=== PATIENT | female | born 1945 | race Caucasian/White ===

== ENCOUNTER 2023-04-25 10:00 | Outpatient (CLI) | payer MEDICARE, BC, SELFPAY | END 2023-04-25 10:01 | disposition home or self-care (01) | LOC: NFLDREF 04-29 13:08 | PROVIDERS: PCP Internal Medicine; Referring Provider Internal Medicine; Visit Provider Internal Medicine | DX: E78.5 Hyperlipidemia, unspecified (principal); R53.82 Chronic fatigue, unspecified; E03.9 Hypothyroidism, unspecified | CPT/HCPCS: 80053; 80061; 84443 ==

== ENCOUNTER 2023-08-06 15:22 | Emergency (ER) | payer MEDICARE, BC, SELFPAY ==
[2023-08-06 15:59] VITALS: BP 153/79; PULSE 93; RESP 18; TEMP 36.7; O2SAT 97; BMI 25.7
--- NOTE | 2023-08-06 17:30 | CRLHL7_ITS ---
For Patients: As a result of the Century Cures Act, medical imaging exams and procedure reports are released immediately into your electronic medical record. You may view this report before your referring provider. If you have questions, please contact your health care provider. INDICATION: Left leg pain and swelling. TECHNIQUE: Ultrasound venous duplex left lower extremity. Compression venous exam was performed using crawford-scale, color Doppler, and spectral Doppler analysis. COMPARISON: None. FINDINGS: RIGHT LOWER EXTREMITY: The right common femoral vein was imaged for comparison and demonstrate full compressibility and normal flow on color Doppler imaging. LEFT LOWER EXTREMITY: Common Femoral Vein: Fully compressible and demonstrates normal flow on color doppler imaging. Proximal Superficial Femoral Vein: Fully compressible and demonstrates normal flow on color doppler imaging. Mid Superficial Femoral Vein: Fully compressible and demonstrates normal flow on color doppler imaging. Distal Superficial Femoral Vein: Fully compressible and demonstrates normal flow on color doppler imaging. Popliteal vein: Fully compressible and demonstrates normal flow on color doppler imaging. Lower Calf: The posterior tibial and peroneal veins are fully compressible and demonstrate normal flow on color doppler imaging. Superficial Vein: The greater saphenous vein is fully compressible. Popliteal Fossa: No popliteal cyst. Other: In the region of the patient`s concern, there appears to be non compressibility and intraluminal filling defect within a superficial vein common likely representing superficial thrombophlebitis for IMPRESSION: 1. No left lower extremity deep vein thrombus. 2. Likely superficial thrombophlebitis of a superficial vein in the superficial soft tissues overlying the left lateral knee. Dictated by Gus Tineo MD @ 08/06/2023 8:25:13 PM (Electronically Signed)
--- NOTE | 2023-08-06 19:09 | ED.GENADULT ---
HPI - General Adult General Date Seen: 08/06/23 Chief complaint: Extremity Pain/Injury, Lower Stated complaint: nodule on leg Time Seen by Provider: 08/06/23 17:26 Source: patient Mode of arrival: ambulatory Limitations: no limitations History of Present Illness HPI narrative: Patient is a 77-year-old female presenting emergency department after noticing a small nodule on the lateral portion of her left lower extremity. It is about knee level denies fevers, chest pain, shortness of breath, weakness, numbness, headache, vision changes. She states she called the triage line was told to come here to check for DVT. She denies any pain to it at this time. No other concerns noted. Related Data Home Medications Medication Instructions Recorded Confirmed azelastine 137 mcg (0.1 %) nasal 2 intranasal DAILY 03/06/22 04/29/23 spray aerosol calcium carbonate 600 mg-vitamin cap PO 03/06/22 04/29/23 D3 12.5 mcg (500 unit) capsule (Calcium 600 with Vitamin D3) famotidine 20 mg tablet 20 mg PO BID 03/06/22 04/29/23 melatonin 3 mg capsule 1 mg PO .Bedtime as needed PRN 03/06/22 04/29/23 multivitamin 1 tab PO QAM 03/06/22 04/29/23 omega 3-new-kln-fish oil 1,000 mg 1 cap PO QDAY 03/06/22 04/29/23 (120 mg-180 mg) capsule (Fish Oil) timolol maleate 0.5 % eye drops drp ophthalmic (eye) 02/21/23 04/29/23 tretinoin 0.05 % topical cream 1 applic topical QPM 02/21/23 08/06/23 Creon 08/06/23 Previous Rx's Medication Instructions Recorded alprazolam 0.25 mg tablet 0.25 mg PO .Bedtime as needed PRN 04/29/23 sleep #30 tabs ibandronate 150 mg tablet 150 mg PO .Every 30 Days #3 tabs 04/29/23 levothyroxine 75 mcg tablet 75 mcg PO DAILY #90 tabs 04/29/23 simvastatin 20 mg tablet 20 mg PO .Bedtime #90 tabs 04/29/23 trazodone 50 mg tablet 50 mg PO .Bedtime #90 tabs 04/29/23 Allergies Allergy/AdvReac Type Severity Reaction Status Date / Time levofloxacin AdvReac Intermediate Tendon Verified 04/29/23 12:43 painful Review of Systems Status of ROS: Reports: 10 or more systems reviewed and unremarkable except as noted in History and below [facility] Medical History History of depression ?Z86.59 - Personal history of other mental and behavioral disorders (ICD-10) Surgical History History of malignant neoplasm of skin ?Z85.828 - Personal history of other malignant neoplasm of skin (ICD-10) History of nasal polypectomy ?Z98.890 - Other specified postprocedural states (ICD-10) ?Z87.09 - Personal history of other diseases of the respiratory system (ICD-10) History of bunionectomy of right great toe ?Z98.890 - Other specified postprocedural states (ICD-10) History of appendectomy ?Z90.49 - Acquired absence of other specified parts of digestive tract (ICD-10) History of repair of hiatal hernia ?Z98.890 - Other specified postprocedural states (ICD-10) ?Z87.19 - Personal history of other diseases of the digestive system (ICD-10) History of breast surgery ?Z98.890 - Other specified postprocedural states (ICD-10) History of total hysterectomy with bilateral salpingo-oophorectomy (BSO) ?Z90.710 - Acquired absence of both cervix and uterus (ICD-10) ?Z90.722 - Acquired absence of ovaries, bilateral (ICD-10) ?Z90.79 - Acquired absence of other genital organ(s) (ICD-10) History of cholecystectomy ?Z90.49 - Acquired absence of other specified parts of digestive tract (ICD-10) History of cataract extraction ?Z98.49 - Cataract extraction status, unspecified eye (ICD-10) Social History Smoking Status: Never smoker Non-prescribed substance use: denies use Little interest or pleasure in doing things: not at all Feeling down, depressed, or hopeless: several days Exam Narrative: Exam Narrative: Const: Well-nourished, Well-developed, in no distress Eyes: PERRL, no conjunctival injection, and symmetrical lids HENT: Atraumatic external nose and ears. Moist mucous membranes. Neck: Symmetric, trachea midline, No thyromegaly. CVS: RRR, No murmurs or gallops. Peripheral pulses 2+ and equal in all extremities RESP: Unlabored respiratory effort. Clear to auscultation bilaterally. GI: Nontender/Nondistended, No rebound or guarding. MSK:Extremities w/o deformity, Normal Active ROM, roughly 1 cm in size mobile nodule noted on the left leg Skin: Warm, Dry. No rashes or lesions. Neuro: Normal Muscle tone, No focal neurological deficits. Psych: Awake, Alert, & Oriented x3. Appropriate mood and affect. Const: Vital Signs, click to edit/add: Vital Signs - 24 hr 08/06/23 15:59 08/06/23 19:24 08/06/23 19:26 Temperature 98.1 F 98.6 F 98.6 F Pulse Rate [Pulse Oximeter] 93 89 89 Respiratory Rate 18 18 18 Blood Pressure [Ri ght Upper Arm] 153/79 H 143/74 H 143/74 H Pulse Oximetry 97 97 Oxygen Delivery Me thod Room Air Room Air Course Vital Signs Vital signs: Initial Vital Signs Temperature 98.1 F 08/06/23 15:59 Temperature Source Temporal Artery Scan 08/06/23 15:59 Pulse Rate 93 08/06/23 15:59 Respiratory Rate 18 08/06/23 15:59 Blood Pressure 153/79 H 08/06/23 15:59 Blood Pressure Mean 103 08/06/23 15:59 Blood Pressure Position Sitting 08/06/23 15:59 Pulse Oximetry 97 08/06/23 15:59 Oxygen Delivery Method Room Air 08/06/23 15:59 Vital Signs Temperature 98.1 F 08/06/23 15:59 Pulse Rate 93 08/06/23 15:59 Respiratory Rate 18 08/06/23 15:59 Blood Pressure 153/79 H 08/06/23 15:59 Pulse Oximetry 97 08/06/23 15:59 Oxygen Delivery Method Room Air 08/06/23 15:59 Temperature 98.6 F 08/06/23 19:26 Pulse Rate 89 08/06/23 19:26 Respiratory Rate 18 08/06/23 19:26 Blood Pressure 143/74 H 08/06/23 19:26 Pulse Oximetry 97 08/06/23 19:24 Oxygen Delivery Method Room Air 08/06/23 19:24 Medical Decision Making MDM Narrative Medical decision making narrative: Patient is a 77-year-old female presenting for concern of blood clot. There is an area on her left leg that is mobile and mildly tender to palpation. This seems unlikely to be a DVT but we will get an ultrasound of the area to see what is found. The preliminary read shows superficial thrombophlebitis. Is about 1 cm in length and is far away from the saphenofemoral junction. Due to this treatment with blood thinners is not needed. She will be discharged home and told to take NSAIDs for pain control and for hot packs on the area. She is agreeable to this plan. Imaging Data Ultrasound left lower extremity: Radiologist's impression: 1. No left lower extremity deep vein thrombus. 2. Likely superficial thrombophlebitis of a superficial vein in the superficial soft tissues overlying the left lateral knee. Dictated by Gus Tineo MD @ 08/06/2023 8:25:13 PM Discharge Plan Discharge Clinical Impression: Superficial thrombophlebitis Qualifiers: Superficial thrombophlebitis-Involved body area: lower extremity Laterality: left Qualified Code(s): I80.02 - Phlebitis and thrombophlebitis of superficial vessels of left lower extremity Patient Disposition: Home, Self-Care Condition: Stable Instructions: Superficial Thrombophlebitis (ED) Additional Instructions: Take NSAIDs and use hot packs to the area to help break up the superficial clot if it is causing you any problems. This specific type of blood clot does not require treatment. Prescriptions: No Action melatonin 3 mg capsule 1 mg PO .Bedtime as needed PRN azelastine 137 mcg (0.1 %) aerosol,spray 2 intranasal DAILY multivitamin Tablet 1 tab PO QAM omega 3-gyt-lud-fish oil [Fish Oil] 1,000 mg (120 mg-180 mg) capsule 1 cap PO QDAY calcium carbonate-vitamin D3 [Calcium 600 with Vitamin D3] 600 mg-12.5 mcg (500 unit) capsule PO famotidine 20 mg tablet 20 mg PO BID tretinoin 0.05 % cream 1 applic topical QPM timolol maleate 0.5 % drops ophthalmic (eye) simvastatin 20 mg tablet 20 mg PO .Bedtime Qty: 90 3RF levothyroxine 75 mcg tablet 75 mcg PO DAILY Qty: 90 3RF trazodone 50 mg tablet 50 mg PO .Bedtime Qty: 90 3RF alprazolam 0.25 mg tablet 0.25 mg PO .Bedtime as needed PRN (Reason: sleep) Qty: 30 0RF ibandronate 150 mg tablet 150 mg PO .Every 30 Days Qty: 3 3RF Creon Follow Up/Referrals: Heather Geronimo MD [Primary Care Provider] - Stand Alone Forms: [facility] Info Instructions
[2023-08-06 19:24] VITALS: BP 143/74; PULSE 89; RESP 18; TEMP 37; O2SAT 97
[2023-08-06 19:26] VITALS: BP 143/74; PULSE 89; RESP 18; TEMP 37
== END 2023-08-06 19:27 | disposition home or self-care (01) ==
LOC: ED 19:23
PROVIDERS: Emergency Provider Student in an Organized Health Care Education/Training Program; PCP Internal Medicine
DX: I80.02 Phlebitis and thrombophlebitis of superficial vessels of left lower extremity (principal)
CPT/HCPCS: 93971; 99282; 99283; 99284

== ENCOUNTER 2023-08-09 11:41 | Outpatient (REF) | payer MEDICARE, BC, SELFPAY ==
[2023-08-09 12:26] LABS: Vitamin D 25 Hydroxy* 61 ng/mL (30-80)
[2023-08-09 13:23] LABS: Vitamin B12* 932 pg/mL (243-894)
[2023-08-10 21:08] LABS: Folate, Serum >22.3 ng/mL (>=5.9)
[2023-08-12 08:44] LABS: Vitamin A (Retinol) 0.77 mg/L (0.30-1.20)
== END 2023-08-09 11:42 | disposition home or self-care (01) ==
LOC: NPINS 11:41
PROVIDERS: PCP Internal Medicine
DX: K86.89 Other specified diseases of pancreas (principal); Z13.0 Encounter for screening for diseases of the blood and blood-forming organs and certain disorders involving the immune mechanism; F51.04 Psychophysiologic insomnia; M81.0 Age-related osteoporosis without current pathological fracture; E03.9 Hypothyroidism, unspecified; E78.5 Hyperlipidemia, unspecified; Z13.21 Encounter for screening for nutritional disorder
CPT/HCPCS: 82306; 82607; 82728; 82746; 84446; 84590

== ENCOUNTER 2024-03-11 06:50 | Outpatient (CLI) | payer MEDICARE, BC, SELFPAY | END 2024-03-11 06:51 | disposition home or self-care (01) | LOC: NFLDREF 06:51 | PROVIDERS: PCP Internal Medicine; Visit Provider Family Medicine | DX: N39.0 Urinary tract infection, site not specified (principal); B96.5 Pseudomonas (aeruginosa) (mallei) (pseudomallei) as the cause of diseases classified elsewhere; B96.89 Other specified bacterial agents as the cause of diseases classified elsewhere | CPT/HCPCS: 87086; 87186 ==

== ENCOUNTER 2024-03-22 10:59 | Outpatient (RCR) | payer MEDICARE, BC, SELFPAY ==
[2024-03-21 11:45] VITALS: BP 140/88; PULSE 80; RESP 18; TEMP 36.2; O2SAT 95
[2024-03-21] MEDS: ERTAPENEM 1 GM inj IM (11:56)
[2024-03-21] MEDS: LIDOCAINE 1% 5 ml (pf) 5 ML VIAL 3.2 ML IM (11:58)
[2024-03-22] MEDS: LIDOCAINE 1% 5 ml (pf) 5 ML VIAL 3.2 ML IM (11:18)
[2024-03-22] MEDS: ERTAPENEM 1 GM inj IM (11:18)
[2024-03-22 11:20] VITALS: BP 123/71; PULSE 70; RESP 12; TEMP 36.3; O2SAT 97
== END 2024-12-02 13:41 | disposition home or self-care (01) ==
PROVIDERS: PCP Internal Medicine; Visit Provider Family Medicine
DX: N39.0 Urinary tract infection, site not specified (principal); B96.5 Pseudomonas (aeruginosa) (mallei) (pseudomallei) as the cause of diseases classified elsewhere; B96.89 Other specified bacterial agents as the cause of diseases classified elsewhere; N39.41 Urge incontinence; N95.2 Postmenopausal atrophic vaginitis
CPT/HCPCS: 80307; 90471; 96372; J1335

== ENCOUNTER 2024-05-14 09:55 | Outpatient (CLI) | payer MEDICARE, BC, SELFPAY ==
--- OUTSIDE RECORDS SUMMARY | 2024-05-14 13:55 | XMS_ITS | Encounter Summary ---
Author Organization [facility] Address [address] [place] [id number] Care Team Providers Care Solutions Operator Name Role Phone Unavailable Primary Care Provider Unavailabl e Reason for Visit * Reason Comments Med Change Request Encounter Details Date Type Department Care Team (Late st Contact Info) Description 04/29/2024 Refill Division of Gastroenterology in [place], [place] [address] [place] [phone] Yvette Moncada M.D., M.P.H. [address] [place] [phone] Med Change Request Social History Tobacco Use Types Packs/Day Years Used Date Smoking Tobacco: Never Smokeless Tobacco: Never Alcohol Use Standard Drinks/Week Comments Yes 0 (1 standard drink = 0.6 oz pur e alcohol) Rarely have a drink. [facility] Utilities Answer Date Recorded In the past 12 months has e [employer], gas, oil, or water [employer] threatened to shut off services in your home? No 04/05/2024 Social Connection and Isolat ion Panel [NHANES] Answer Date Recorded Frequency of Communication w ith Friends and Family More than three times a week 04/19/2019 Frequency of Social Gatherin gs with Friends and Family Three times a week 04/19/2019 Attends Taoist Services More than 4 times per year 04/19/2019 Active Member of Clubs or Organizations Yes 04/19/2019 Attends Club or Organization Meetings More than 4 times per year 04/19/2019 Marital Status 04/19/2019 AUDIT-C Answer Date Recorded Frequency of Alcohol Consumption Monthly or less 04/19/2019 Average Number of Drinks 1 or 2 019 Frequency of Binge Drinking Never 04/05 Overall Financial Resource Strain (CARDIA) Answe r Date Recorded Difficulty of Paying Living Expenses Not hard at all 04/19/2019 PHQ-2 Answer Date Recorded PHQ-2 Score 2 01/11/2019 [facility] - Occupational Stress Questionnaire Answer Date Recorded Feeling of Stress To some extent 04/19/2019 Exercise Vital Sign Answer Date Recorde d On average, how many days pe r week do you engage in moderate to strenuous exercise (like a brisk walk)? 6 days 04/05/2024 On average, how many minutes do you engage in exercise at this level? 30 min 04/05/2024 Hunger Vital Sign Answer Date Recorded Within the past 12 months, y ou worried that your food would run out before you got the money to buy more. Never true 04/05/20 24 Within the past 12 months, t he food you bought just didn't last and you didn't have money to get more. Never true 04/05/2024 PRAPARE - Transportation Answer Date Re corded In the past 12 months, has l ack of transportation kept you from medical appointments or from getting medications? No 08/2023 In the past 12 months, has l ack of transportation kept you from meetings, work, or from getting things needed for daily living? No 04/05/2024 Nutrition Answer Date Recorded On average, how many serving s of fruits and vegetables do you eat per day (serving size is equal to 1 cup or approximately the size of a tennis ball)? 0-2 04/05/2024 Dental Answer Date Recorded Dental: Regular Dentist Yes 04/05/20 24 Employment Answer Date Recorded Employment status Retired 04/05/2024 Housing Stability Answer Date Recorded What is your living situation today? I have a [facility] place to live 04/05/2024 Education Answer Date Recorded What is the highest level of school you have completed or the highest degree you have received? Master's degree (e.g., MA, MS, Good, MEd, TOP AND TRIM WORKER, REBECCA) 04/19/2019 Sex and Gender Information Value Date Recorded Sex Assigned at Female 05/17/2018 6:44 PM CDT Gender Identity Not on file Sexual Orientation Not on file documented as of this encounter Plan of Treatment Not on file documented as of this encounter Visit Diagnoses Not on filedocumented in this encounter
--- OUTSIDE RECORDS SUMMARY | 2024-05-14 13:55 | XMS_ITS | Encounter Summary ---
Author Organization [facility] Address [address] [place] [address] Care Team Providers Care Journeyman Tool And Die Maker Name Role Phone Unavailable Primary Care Provider Unavailabl e Reason for Visit * Reason Comments Gastroparesis * Outpatient (Routine) - Closed Specialty Diagnoses / Procedures Referred By Pineda stoner Referred To Contact Diagnoses Gastroparesis Diarrhea Anemia Iron Deficiency Constipation Procedures Enema Prep Yvette Moncada M.D., M.P.H. [address] [place] [phone] [facility] Referral ID Status Reason Start Date Expiration Date Visits Re quested Visits Authorized [id number] Closed 04/07/2024 04/07/2025 1 1 Encounter Details Date Type Department Care Team (Latest Contact Info) Description 04/16/2024 8:00 AM CDT Clinical Support Enema Prep Facility in [place], [place] [address] [place] [phone] Yvette Moncada M.D., M.P.H. [address] [place] [phone] Lisa Montes R.NJason Gastroparesis; Diarrhea; Anemia Iron Deficiency; Constipation Social History Tobacco Use Types Packs/Day Years Used Date Smoking Tobacco: Never Smokeless Tobacco: Never Alcohol Use Standard Drinks/Week Comments Yes 0 (1 standard drink = 0.6 oz pur e alcohol) Rarely have a drink. [facility] Utilities Answer Date Recorded In the past 12 months has th e electric, gas, oil, or water company threatened to shut off services in your home? No 04/05/2024 Social Connection and Isolat ion Panel [NHANES] Answer Date Recorded Frequency of Communication w ith Friends and Family More than three times a week 04/19/2019 Frequency of Social Gatherin gs with Friends and Family Three times a week 04/19/2019 Attends Tenriism Services More than 4 times per year [...] Answer Date Recorded PHQ-2 Score 2 [facility] Answer Date [...] Date Recorded Dental: Regular Dentist Yes 04/05/20 Employment Answer Date Recorded Employment status Retired 04/05/2024 Housing Stability Answer Date Recorded What is your living situation today? I have a [facility] place to live 04/05/2024 Education Answer Date Recorded What is the highest level of school you have completed or the highest degree you have received? Master's degree (e.g., MA, MS, Good, MEd, INSECT CONTROL AIDE, REBECCA) 04/19/2019 Sex and Gender Information Value Date Recorded Sex Assigned at Female 05/17/2018 6:44 PM CDT Gender Identity Not on file Sexual Orientation Not on file documented as of this encounter Plan of Treatment Not on file documented as of this encounter Visit Diagnoses Diagnosis Gastroparesis Diarrhea Anemia Iron Deficiency Constipation documented in this encounter
--- OUTSIDE RECORDS SUMMARY | 2024-05-14 13:55 | XMS_ITS | Clinical Summary ---
Author Organization [facility] Address [address] [place] [address] Care Team Providers Care Frame Hand Name Role Phone Unavailable Primary Care Provider Unavailabl e Source Comments Patient records contain information from all sites at [facility]. For routine questions regarding patient records, call [phone] during business hours, M-F 8:00 AM - 5:00 PM Central Time. Record requests for emergency care only can be directed to [phone] at any time.[facility] Allergies Active Allergy Reactions Criticality Noted Date Comments Ciprofloxacin Tendonitis High 07/02/2018 Levofloxacin Anxiety,Other (see comments),Tendonitis High 08/08/2014 Could not sleep & tendonitis of arms. Moxifloxacin Tendonitis High 07/02/2018 Medications Medication Sig Dispensed Refills Start Date End Date Status azelastine HCl (AZELASTINE NASAL) Administer 2 sprays into affected nostril(s) daily. Azelastine spray. 05/01/2012 Active OMEGA-3 FATTY ACIDS ORAL Take 1 capsule by mouth 2 (two) times a day. 2000 mg. 05/01/2012 Active melatonin 1 mg tablet Take 1 mg by mouth at bedtime. Active MULTIVITAMIN ORAL Take 1 tablet by mouth daily. Active levothyroxine (SYNTHROID, LEVOTHROID) 75 mcg tablet Take 75 mcg by mouth every morning before breakfast. Active famotidine (PEPCID) 40 mg tablet Take 40 mg by mouth 2 (two) times a day. Active ALPRAZolam (Xanax) 0.25 mg tablet Take 1 tablet by mouth at bedtime as needed. 01/28/2018 Active tretinoin (Retin-A) 0.05 % cream See Admin Instructions. See attached for detailed directions. 03/26/2024 Active iron,carbonyl-v itamin C (Vitron-C) 65 mg iron- [address] tablet Take 65 mg of iron by mouth daily. Do not crush or chew. Active magnesium 250 mg tablet Take 1 tablet by mouth 2 (two) times a day. Active traZODone (DesyreL) 50 mg tablet Take 50 mg by mouth. 04/29/2023 Active timolol (Istalol) 0.5 % ophthalmic solution Administer into affected eye(s). 02/21/2023 Active simvastatin (Zocor) 20 mg tablet Take 20 mg by mouth. 04/29/2023 Active ibandronate (Boniva) 150 mg tablet Take 150 mg by mouth. 04/29/2023 Active calcium carbonate-vitam in D3 600 mg-12.5 mcg (500 unit) capsule Take by mouth. 03/06/2022 Active lipase-protease -amylase (Creon) 3,000-9,500-15, [address] capsule Take by mouth. 01/24/2024 Active Motegrity 1 mg tablet tablet TAKE 1 TABLET BY MOUTH EVERY DAY 30 tablet 11 04/30/2024 Active calcium carbonate 1,500 mg (600 mg calcium) tablet Take 1 tablet by mouth daily. 05/01/2012 4 Discontinued(The rapy completed) magnesium 250 mg tablet Take 2 tablets by mouth daily. 05/01/2012 4 Discontinued(Dup licate order) simvastatin (ZOCOR) 20 mg tablet Take 1 tablet by mouth daily. 05/01/2012 4 Discontinued(The rapy completed) traZODone (DESYREL) 50 mg tablet Take 50 mg by mouth at bedtime. 0.5 tabletSide effects of 5-FU (Fluorouracil): [employer]romedex CareNotes Fever, chills, or sore throat Unusual bleeding or bruising Diarrhea, loose watery stools Mouth sores that keep you from drinking li 03/14/2016 4 Discontinued(Dup licate order) timolol (TIMOPTIC) 0.5 % ophthalmic solution 1 drop 2 (two) times a day. 4 Discontinued(Dup licate order) omeprazole (PriLOSEC) [address] capsule Take 10 mg by mouth every morning before breakfast. 4 Discontinued ibandronate (Boniva) 150 mg tablet Take 150 mg by mouth every 30 (thirty) days. 4 Discontinued(The rapy completed) lipase-protease -amylase (Creon) 24,000-76,000-1 20,[address] capsule Take 1 capsule by mouth 3 (three) times a day with meals. 4 Discontinued(Dup licate order) tretinoin-clind amycin-niacin 0.05-1-4 % cream Apply topically. 02/21/2023 4 Discontinued(Dup licate order) omega 4-hse-mum-fish oil 1,000 mg (120 mg-180 mg) capsule Take 1 capsule by mouth. 03/06/2022 4 Discontinued(Dup licate order) melatonin 3 mg capsule Take 1 mg by mouth. 03/06/2022 4 Discontinued(Dup licate order) multivitamin tablet Take 1 tablet by mouth. 03/06/2022 4 Discontinued(The rapy completed) levothyroxine 75 mcg tablet Take 75 mcg by mouth. 04/29/2023 4 Discontinued(Dup licate order) famotidine (Pepcid) 20 mg tablet Take 20 mg by mouth. 03/06/2022 4 Discontinued(The rapy completed) prucalopride (Motegrity) 1 mg tablet tablet Take 1 tablet (1 mg total) by mouth daily. 30 tablet 11 04/29/2024 4 Discontinued Active Problems Problem Noted Date Diagnosed Date Hernia Hiatal 05/21/2018 Overview (05/21/2018): Added automatically from request for surgery [id number] Dysthymic disorder 01/28/2018 Hypercholesterolemia 01/28/2018 Irritable Bowel Syndrome With Constipation 01/28 Osteopenia 01/28/2018 Urinary Tract Infection (UTI)/Bacteriuria NOS Overview (09/03/2022): Diagnosis Maintenance Updates Chronic interstitial cystitis 12/17/2017 Overactive Bladder 12/17/2017 Gastroesophageal Reflux Disease Without Esophagi tis 08/24/2015 Insomnia 08/02/2015 Hypothyroidism On Replacement 05/01/2012 Dry Eye Syndrome Bilateral 11/30/2004 Primary Osteoarthritis Cervical Spine 11/29/2004 Resolved Problems Problem Noted Date Diagnosed Date Resolved Date Central Sleep Apnea Syndrome 05/01/2012 04/16/2018 Hole Retinal Without Detachment Right 11/30/2004 04/17/2018 Encounters Date Type Department Care Team Description 04/30/2024 Orders Only Division of Gastroenterology in [place], [place] [address] [place] [phone] Yvette Moncada M.D., M.P.H. 04/29/2024 4:00 PM CDT Virtual Visit Division of Gastroenterology in [address] [phone] Yvette Moncada M.D., M.P.H. Constipation (Primary Dx); Dysfunction Pelvic Floor Female 04/29/2024 Refill Division of Gastroenterology in [place], [place] [address] [place] [phone] Yvette Moncada M.D., M.P.H. Med Change Request 04/16/2024 8:50 AM CDT - 04/16/2024 11:59 PM CDT Hospital Encounter Division of Gastroenterology in [address] [phone] Yvette Moncada M.D., M.P.H. Gastroparesis; Diarrhea; Anemia Iron Deficiency; Constipation Discharge Disposition: Home or Self Care 04/16/2024 8:00 AM CDT Clinical Support [facility] in [place], [place] [address] [place] [phone] Yvette Moncada M.D., M.P.H. Lisa Montes R.N. Gastroparesis; Diarrhea; Anemia Iron Deficiency; Constipation 04/10/2024 7:44 AM CDT - 04/10/2024 11:59 PM CDT Hospital Encounter Department of Radiology, [facility], in [place], [place] [address] [place] [phone] Kirk Senior M.D. Discharge Disposition: Home or Self Care 04/09/2024 6:25 AM CDT - 04/09/2024 11:59 PM CDT Hospital Encounter Department of Radiology, [facility] in [place], [place] [address] [place] [phone] Kirk Senior M.D. Discharge Disposition: Home or Self Care 04/08/2024 2:15 PM CDT - 04/08/2024 11:59 PM CDT Hospital Encounter Department of Radiology, [facility], in [place], [place] [address] [place] [phone] Kirk Senior M.D. Discharge Disposition: Home or Self Care 04/08/2024 10:12 AM CDT - 04/08/2024 2:14 PM CDT Hospital Encounter Department of Radiology, [facility], in [place], [place] [address] [place] [phone] Kirk Senior M.D. Discharge Disposition: Home or Self Care 04/08/2024 9:13 AM CDT - 04/08/2024 10:11 AM CDT Hospital Encounter Department of Radiology, [facility] in [place], [place] [address] [place] [phone] Kirk Senior M.D. Discharge Disposition: Home or Self Care 04/08/2024 8:10 AM CDT - 04/08/2024 9:12 AM CDT Hospital Encounter Department of Radiology, [facility], [place], [place] [address] [place] [phone] Kirk Senior M.D. Discharge Disposition: Home or Self Care 04/08/2024 6:55 AM CDT - 04/08/2024 8:09 AM CDT Hospital Encounter Department of Radiology, [facility], in [place], [place] [address] [place] [phone] Kirk Senior M.D. Gastroparesis Discharge Disposition: Home or Self Care 04/07/2024 12:30 PM CDT - 04/07/2024 11:59 PM CDT Hospital Encounter Department of Radiology, [facility], in [address] [phone] Yvette Moncada M.D., M.P.H. Gastroparesis; Diarrhea; Anemia Iron Deficiency; Constipation Discharge Disposition: Home or Self Care 04/07/2024 9:20 AM CDT Comprehensive Visit Division of Gastroenterology in [place], [place] [address] [place] [phone] Yvette Moncada M.D., M.P.H. Gastroparesis (Primary Dx); Diarrhea; Anemia Iron Deficiency; Constipation 03/31/2024 1:00 PM CDT Clinical Communication Virtual Review in [place], [place] [address] [place] [phone] Previsit Preparation (TORSTEN DD) 02/14/2024 Clinical Communication Division of Gastroenterology in [address] [phone] Javier White M.B.B.S. from Last 3 Months Immunizations Name Administration Dates Next Due HZV (ZOSTAVAX) 08/04/2016 Influenza Split 05/23/2011 Influenza TIV (IM) 05/10/2015, 1,05/01/2010,2008 Influenza, Seasonal, Injectable 04/30/2009 Influenza, Unspecified 05/21/2018 PCV13 07/19/2015 PPSV23 02/16/2011 RZV (SHINGRIX) 07/02/2018(Deferred: Not available from home service advisor) Tdap 11/08/2011,09/05/2011 influenza trivalent high dos e (HD)(PF) 05/30/2017,05/28/2016,05/10/2015,2010 influenza trivalent vaccine (6 months and older)(PF) 05/01/2010 Family History Medical History Relation Name Comments Coronary artery disease Brother 1 Jimbo Diabetes Brother 1 Jimbo Hypertension Brother 1 Jimbo Stroke Brother 2 Glynn Hypertension Father Bassem Stroke Father Bassem Diabetes Maternal Grandmother Mis Anxiety disorder Mother Sarah Diabetes Mother Sarah Relation Name Status Comments Brother 1 Jimbo Brother 2 Glynn Father Bassem Maternal Grandmother Mis Smith Social History Tobacco Use Types Packs/Day Years Used Date Smoking Tobacco: Never Smokeless Tobacco: Never Tobacco Cessation:Counseling Given: Not Answered Alcohol Use Standard Drinks/Week Comments Yes 0 (1 standard drink = 0.6 oz pur e alcohol) Rarely have a drink. [facility] Utilities Answer Date Recorded In the past [...] Family Three times a week 04/19/2019 Attends [employer] More than 4 times per year [...] Answer Date Recorded PHQ-2 Score 2 01/11/2019 [facility] - Occupational Stress Questionnaire Answer Date Recorded [...] your living situation today? I have a [facility] place to live 04/05/2024 Education Answer Date Recorded What is the highest level of school you have completed or the highest degree you have received? Master's degree (e.g., MA, MS, Good, MEd, FEED PROJECT ENGINEER, REBECCA) 04/19/2019 Sex and Gender Information Value Date Recorded Sex Assigned at Female 05/17/2018 6:44 PM CDT Gender Identity Not on file Sexual Orientation Not on file Last Filed Vital Signs Vital Sign Reading Time Taken Comments Blood Pressure 160/87 04/07/2024 9:32 AM CDT Pulse 78 04/07/2024 9:32 AM CDT Temperature 36.8 ??C (98.2 ??F) 07/02/2018 1:51 PM CS T Respiratory Rate - - Oxygen Saturation - - Inhaled Oxygen Concentration - - Weight 63.3 kg (139 lb 8.8 oz) 04/07/2024 9:32 A M CDT Height 157 cm (5' 1.81) 04/07/2024 9:32 AM CDT Body Mass Index 25.68 04/07/2024 9:32 AM CDT Plan of Treatment Health Maintenance Due Date Last Done Comments Hepatitis C Screening 1945 Thyroid Stimulating Hormone (TSH) test for thyroid function 02/26/2023 02/26/2022, 02/25/2020, 02/21/2018 Depression Screening (Annual PHQ-2) 08/05/2023 Fall Risk Screen (Annual) 08/05/2023 COVID-19 Vaccine (2023-09 5 season) 2024 05/25/2023, 01/08/2023, 05/22/2022, Additional history exists Influenza Vaccine (#1) 2024 , 06/01/2022, 05/10/2021, Additional history exists DTaP,Tdap,and Td Vaccines (4 - Td or Tdap) 02/27/2032 02/26/2022, 11/08/2011, 09/05/2011 Colonoscopy Discontinued 04/27/2010, 10/03 (Performed elsewhere) Colorectal Cancer Screening Discontinued Pneumococcal vaccine (65+ years) Completed 07/19/20, 02/16/2011 Bone Density Scan (Osteoporo sis Screen) Discontinued 04/17/2017 Zoster Vaccines Completed 12/03/2019, 06/05, 07/02/2018, Additional history exists Mammogram Discontinued 03/07/2022, 10/2021, 04/07/2012 (Performed elsewhere) RSV vaccine - (32-3 6 weeks) or 60+ years Completed 04/29/2023 CT Colonography Discontinued Cologuard Discontinued FIT Discontinued Medical Devices Implanted Type [employer] Device Identifier Shelf Expiration Date Model / Serial / Lot Stent Other Stent Other Eye Description:Both eyes Procedures Procedure Name Priority Date/Time Associated Diagnosis Comments ANORECTAL MANOMETRY Routine 04/17/2024 6 :46 AM CDT Gastroparesis Diarrhea Anemia Iron Deficiency Constipation NM GASTRIC EMPTYING WITH SB WITH COLONIC TRANSIT TIME 48 HR RAD - Routine (most inpatients and all outpatients) 04/10/2024 8:31 AM CDT Gastroparesis PANCREATIC ELASTASE,F Routine 04/08/2024 1:29 PM CDT Gastroparesis Diarrhea Anemia Iron Deficiency Constipation DX ABDOMEN 1 VIEW RAD - Routine (most inpatients and all outpatients) 04/07/2024 1:51 PM CDT Gastroparesis Diarrhea Anemia Iron Deficiency Constipation PROTHROMBIN TIME (PT), P Routine 04/07/2024 11:19 AM CDT Gastroparesis Diarrhea Anemia Iron Deficiency Constipation VITAMIN A AND VITAMIN E, S Routine 04/07/2024 11:19 AM CDT Gastroparesis Diarrhea Anemia Iron Deficiency Constipation FERRITIN, S Routine 04/07/2024 11:19 AM CDT Gastroparesis Diarrhea Anemia Iron Deficiency Constipation IRON AND TOT IRON-BINDING CAPACITY, S/P Routine 04/07/2024 11:19 AM CDT Gastroparesis Diarrhea Anemia Iron Deficiency Constipation 25-HYDROXYVITAMIN D2 AND D3, S Routine 04/07/2024 11:19 AM CDT Gastroparesis Diarrhea Anemia Iron Deficiency Constipation COMPREHENSIVE METABOLIC PANEL, S/P Routine 04/07/2024 11:19 AM CDT Gastroparesis Diarrhea Anemia Iron Deficiency Constipation CBC WITH DIFFERENTIAL, B Routine 04/07/2024 11:18 AM CDT Gastroparesis Diarrhea Anemia Iron Deficiency Constipation from Last 3 Months Results * Anorectal Manometry (04/17/2024 6:46 AM CDT) Yvette Moncada M.D., M.P.H. GI PROCEDURE ORDERABLES MMODAL NA * NM Gastric Emptying with SB with Colonic Transit Time 48 hr (04/10/2024 8:31 AM CDT) Anatomical Region Laterality Modality Abdomen, Pelvis, Nuclear Med icine RST LOS, Nuclear Medicine ARZ LOS, Nuclear Medicine FLA LOS, Nuclear Medicine N/A Nuclear Medicine Impressions 04/10/2024 8:55 AM CDT 1. Normal rate of gastric emptying at 1 hour. Slightly delayed gastric emptying at 2 hour images. No four-hour images available. 2. Colonic transit measures slow at 24 and 48 hours. However, the indium-111 charcoal capsule is retained in the stomach at the 6-hour time point, visualized proximal to the technetium labeled sulfur colloid meal. Therefore, measured colonic transit results could be spurious. Normal change in geometric center of colonic activity from 24 to 48 hours. ?? Narrative 04/10/2024 8:55 AM CDT EXAM: ??NM GASTRIC EMPTYING WITH SB WITH COLONIC TRANSIT TIME 48 HR RADIOPHARMACEUTICAL/MEDS: Route: oral indium In 111 charcoal capsule (In-111 Charcoal Capsule),0.103 millicurie Route: oral technetium Tc 99m Sulfur Colloid solution (Tc-99m Sulfur Colloid) , 1.1 millicurie TECHNIQUE: ??After oral ingestion of the standard radiolabeled meal and a radiolabeled charcoal capsule, sequential anterior and posterior planar images of the abdomen were obtained out to 48 hours for evaluation of gastric emptying, colonic filling, and colon transit. COMPARISON: ??No relevant priors available at this time of interpretation. INDICATION: ??Suspected gastroparesis. FINDINGS: ??Percent emptied from the stomach following a technetium labeled meal was: 1 hour 11% (normal 4 - 31%) 2 hour 21% (normal 25 - 71%) 4 hour NA% (normal 76 - 100%). The patient did not present for the 4 hour image. 6 hour colonic filling 1% (mean 44%) Geometric center of In-111 colonic activity was: 24 hour 0 (normal 1.3 - 4.4) 48 hour 1.7 (normal 1.9 - 5.0) Change in geometric center from 24 to 48 hour: 1.7 (slow colonic transit <0.38) (rapid colonic transit >2.0) Ranges represent 5th to 95th percentile. The patient ate all of the meal. Procedure Note Mannie Whiteside M.B., B.Ch., B.A.O. - 04/10/2024 EXAM: NM GASTRIC EMPTYING WITH SB WITH COLONIC TRANSIT TIME 48 HR RADIOPHARMACEUTICAL/MEDS: Route: oral indium In 111 charcoal capsule (In-111 Charcoal Capsule),0.103millicurie Route: oral technetium Tc 99m Sulfur Colloid solution (Tc-99m Sulfur Colloid) , 1.1millicurie TECHNIQUE: After oral ingestion of the standard radiolabeled meal and aradiolabeled charcoal capsule, sequential anterior and posterior planarimages of the abdomen were obtained out to 48 hours for evaluation ofgastric emptying, colonic filling, and colon transit. COMPARISON: No relevant priors available at this time ofinterpretation. INDICATION: Suspected gastroparesis. FINDINGS: Percent emptied from the stomach following a technetium labeledmeal was: 1 hour 11% (normal 4 - 31%) 2 hour 21% (normal 25 - 71%) 4 hour NA% (normal 76 - 100%). The patient did not present for the 4 hourimage. 6 hour colonic filling 1% (mean 44%) Geometric center of In-111 colonic activity was: 24 hour 0 (normal 1.3 - 4.4) 48 hour 1.7 (normal 1.9 - 5.0) Change in geometric center from 24 to 48 hour: 1.7 (slow colonic transit <0.38) (rapid colonic transit >2.0) Ranges represent 5th to 95th percentile. The patient ate all of the meal. IMPRESSION: 1. Normal rate of gastric emptying at 1 hour. Slightly delayed gastricemptying at 2 hour images. No four-hour images available. 2. Colonic transit measures slow at 24 and 48 hours. However, theindium-111 charcoal capsule is retained in the stomach at the 6-hour timepoint, visualized proximal to the technetium labeled sulfur colloid meal.Therefore, measured colonic transit results could be spurious. Normal change in geometric center of colonicactivity from 24 to 48 hours. Kirk Senior M.D. IMG NM PROCEDURES * (ABNORMAL) Pancreatic Elastase, Feces (04/08/2024 1:29 PM CDT) Pancreatic Elastase, F <40(L) >200 (Normal) mcg/g 04/10/2024 6:15 PM CDT [facility] Comment: Interpretation: Abnormal (<100 mcg/g); Consistent with pancreatic insufficiency Stool (Stool) 04/08/2024 1:2 9 PM CDT 04/10/2024 11:33 AM CDT Yvette Moncada M.D., M.P.H. LAB BODY FLU IDS AND STOOLS ORDERABLES [facility] [address] [place] [address] [facility] [address] [place] [address] * DX Abdomen 1 View (04/07/2024 1:51 PM CDT) Anatomical Region Laterality Modality Abdomen, Abdominal RST LOS, Abdominal ARZ LOS, Abdominal FLA LOS N/A Digital Radiography Impressions 04/07/2024 2:18 PM CDT Moderate stool burden. Nonobstructive bowel gas pattern. Right upper quadrant and pelvic surgical clips. Narrative 04/07/2024 2:18 PM CDT EXAM: ??DX ABDOMEN 1 VIEW Procedure Note Yessica Jarquin M.D. - 04/07/2024 EXAM: DX ABDOMEN 1 VIEW IMPRESSION: Moderate stool burden. Nonobstructive bowel gas pattern. Right upper quadrant and pelvic surgical clips. Yvette Moncada M.D., M.P.H. IMG DIAGNOST IC IMAGING PROCEDURES * (ABNORMAL) Vitamin A and Vitamin E (04/07/2024 11:19 AM CDT) Vitamin A 57.8 32.5 - 78.0 mcg/dL 04/10/2024 12:08 PM CDT [facility] Comment: ----ADDITIONAL INFORMATION---- This test was developed and its performance characteristics determined by [facility] in a manner consistent with CLIA requirements. This test has not been cleared or approved by the U.S. Food and Drug Administration. A-Tocopherol, Vitamin E 21.9(H) 5.5 - 17.0 mg/L 04/09/2024 10:11 AM CDT [facility] Blood (Blood, Venous) 04/07/2024 11:19 AM CDT 04/08/2024 11:37 AM CDT Yvette Moncada M.D., M.P.H. LAB BLOOD NO N ADD-ON [facility] [place] [address] [place] [address] [facility] [address] [place] [address] [place] [address] * Iron and Total Iron-Binding Capacity (04/07/2024 11:19 AM CDT) Iron 120 35 - 145 mcg/dL 04/07/2024 12:26 PM CDT DTL Total Iron Binding Capacity 394 250 - 400 mcg/dL 04/07/2024 12:26 PM CDT DTL Percent Saturation 30 14 - 50 % 04/07/2024 12:26 PM CDT DTL Blood (Blood, Venous) 04/07/2024 11:19 AM CDT 04/07/2024 11:58 AM CDT Yvette Moncada M.D., M.P.H. LAB BLOOD AD D-ON Performing Organization Address City/[facility]/ZIP Co de Phone Number [facility] [address] [place] [address], [facility] [address] [place] [address] * 25-Hydroxyvitamin D2 and D3 (04/07/2024 11:19 AM CDT) 25-Hydroxy D2 <4.0 ng/mL 04/09/2024 11:28 AM CDT [facility] 25-Hydroxy D3 61 ng/mL 04/09/2024 11:28 AM CDT [facility] 25-Hydroxy D Total 61 ng/mL 2023 11:28 AM CDT [facility] Comment: Interpretation: 51-80 ng/mL (increased risk of hypercalciuria) ----REFERENCE VALUE---- 25-HYDROXY D TOTAL (D2+D3) Optimum levels in the healthy population are 20-50. ----ADDITIONAL INFORMATION---- This test was developed and its performance characteristics determined by [facility] in a manner consistent with CLIA requirements. This test has not been cleared or approved by the U.S. Food and Drug Administration. Blood (Blood, Venous) 04/07/2024 11:19 AM CDT 04/08/2024 7:09 AM CDT Yvette Moncada M.D., M.P.H. LAB BLOOD AD D-ON Performing Organization Address City/[facility]/ZIP Co de Phone Number [facility] [place] [address] [place] [address] [facility] [address] [place] [address] [address] [place] [address] [place] [address] * Prothrombin Time (PT) (04/07/2024 11:19 AM CDT) Pathologist [facility] Prothrombin Time, P 10.8 9.4 - 12.5 sec 04/07/2024 12:29 PM CDT DTL INR 1.0 0.9 - 1.1 04/07/2024 12:29 PM CDT DTL Comment: ----ADDITIONAL INFORMATION---- Standard intensity warfarin therapeutic range: 2.0 to 3.0 ?? High intensity warfarin therapeutic range: 2.5 to 3.5 Blood (Blood, Venous) 04/07/2024 11:19 AM CDT 04/07/2024 11:39 AM CDT Yvette Moncada M.D., M.P.H. LAB BLOOD AD D-ON Performing Organization Address City/[facility]/ZIP Co de Phone Number [facility] [address] [place] [address], [facility] [address] [place] [address] * Ferritin (04/07/2024 11:19 AM CDT) Pathologist [facility] Ferritin, S 49 11 - 328 mcg/L 04/07/2024 12:26 PM CDT DTL Blood (Blood, Venous) 04/07/2024 11:19 AM CDT 04/07/2024 11:58 AM CDT Yvette Moncada M.D., M.P.H. LAB BLOOD AD D-ON [facility] [address] [place] [address], [facility] [address] [place] [address] * (ABNORMAL) Comprehensive Metabolic Panel (04/07/2024 11:19 AM CDT) [facility] Potassium, S 4.6 3.6 - 5.2 mmol/L 04/07/2024 12:26 PM CDT DTL Sodium, S 139 135 - 145 mmol/L 04/07/2024 12:26 PM CDT DTL Chloride, S 103 98 - 107 mmol/L 04/07/2024 12:26 PM CDT DTL Bicarbonate, S 26 22 - 29 mmol/L 04/07/2024 12:26 PM CDT DTL Anion Gap 10 7 - 15 04/07/2024 12:26 PM CDT DTL BUN (Blood Urea Nitrogen), S 22(H) 6 - 21 mg/dL 04/07/2024 12:26 PM CDT DTL Creatinine 0.92 0.59 - 1.04 mg/dL 04/07/2024 12:26 PM CDT DTL Estimated GFR (eGFR) 64 >=60 mL/min/BS A 04/07/2024 12:26 PM CDT DTL Comment: Estimated GFR calculated using the 2020 CKD_EPI creatinine equation. Calcium, Total, S 10.0 8.8 - 10.2 mg/dL 04/07/2024 12:26 PM CDT DTL Glucose, S 109 70 - 140 mg/dL 04/07/2024 12:26 PM CDT DTL Protein, Total, S 6.8 6.3 - 7.9 g/dL 04/07/2024 12:26 PM CDT DTL Albumin, S 4.6 3.5 - 5.0 g/dL 04/07/2024 12:26 PM CDT DTL Aspartate Aminotransferase (AST), S 24 8 - 43 U/L 04/07/2024 12:26 PM CDT DTL Alkaline Phosphatase, S 79 35 - 104 U/L 04/07/2024 12:26 PM CDT DTL Alanine Aminotransferase (ALT), S 13 7 - 45 U/L 04/07/2024 12:26 PM CDT DTL Bilirubin, Total, S 0.6 0.0 - 1.2 mg/dL 04/07/2024 12:26 PM CDT DTL Blood (Blood, Venous) 04/07/2024 11:19 AM CDT 04/07/2024 11:58 AM CDT Yvette Moncada M.D., M.P.H. LAB BLOOD AD D-ON [facility] [address] [place] [address], [facility] DTL [facility] [address] [place] [address] * (ABNORMAL) CBC with Differential, Blood (04/07/2024 11:18 AM CDT) Hemoglobin 15.3(H) 11.6 - 15.0 g/dL 04/07/2024 12:13 PM CDT DTL Hematocrit 47.9(H) 35.5 - 44.9 % 04/07/2024 12:13 PM CDT DTL Erythrocytes 5.29(H) 3.92 - 5.13 x10(12)/L 04/07/2024 12:13 PM CDT DTL MCV 90.5 78.2 - 97.9 fL 04/07/2024 12:13 PM CDT DTL RBC Distrib Width 13.5 12.2 - 16.1 % 04/07/2024 12:13 PM CDT DTL Platelet Count 253 157 - 371 x10(9)/L 04/07/2024 12:13 PM CDT DTL Leukocytes 9.2 3.4 - 9.6 x10(9)/L 04/07/2024 12:13 PM CDT DTL Neutrophils 6.46(H) 1.56 - 6.45 x10(9)/L 04/07/2024 12:13 PM CDT DHPM Lymphocytes 2.15 0.95 - 3.07 x10(9)/L 04/07/2024 12:13 PM CDT DTL Monocytes 0.46 0.26 - 0.81 x10(9)/L 04/07/2024 12:13 PM CDT DTL Eosinophils 0.10 0.03 - 0.48 x10(9)/L 04/07/2024 12:13 PM CDT DTL Basophils 0.06 0.01 - 0.08 x10(9)/L 04/07/2024 12:13 PM CDT DTL Blood (Blood, Venous) 04/07/2024 11:18 AM CDT 04/07/2024 11:38 AM CDT Yvette Moncada M.D., M.P.H. LAB BLOOD AD D-ON [facility] [address] [place] [address], [place] DTL [facility] [address] [place] [address] [facility] [address] [place] [address] from Last 3 Months
--- OUTSIDE RECORDS SUMMARY | 2024-05-14 13:55 | XMS_ITS | Encounter Summary ---
Author Organization [facility] Address [address] [place] [address] Care Team Providers Care Protein Chemist Name Role Phone Unavailable Primary Care Provider Unavailabl e Encounter Details Date Type Department Care Team (Late st Contact Info) Description 04/30/2024 Orders Only Division of Gastroenterology in [place], [place] [address] [place] [address] Yvette Moncada M.D., M.P.H. [address] [place] [address] Social History Tobacco Use Types Packs/Day Years Used Date Smoking Tobacco: Never Smokeless Tobacco: Never Alcohol Use Standard Drinks/Week Comments Yes 0 (1 standard drink = 0.6 oz pur e alcohol) Rarely have a drink. [facility] Utilities Answer Date Recorded In the past 12 months has [employer], gas, oil, or water [employer] threatened to shut off services in your home? No 04/05/2024 Social Connection and Isolat ion Panel [NHANES] Answer Date Recorded Frequency of Communication w ith Friends and Family More than three times a week 04/19/2019 Frequency of Social Gatherin gs with Friends and Family Three times a week 04/19/2019 Attends Church Services More than 4 times per year [...] Answer Date Recorded PHQ-2 Score 2 01/11/2019 [facility]at ional [facility] - Occupational Stress [...] Master's degree (e.g., MA, MS, Good, MEd, [employer]MING [employer] MEMBER, REBECCA) 04/19/2019 Sex and Gender Information Value Date Recorded Sex Assigned at Female 05/17/2018 6:44 PM CDT Gender Identity Not on file Sexual Orientation Not on file documented as of this encounter Plan of Treatment Not on file documented as of this encounter Visit Diagnoses Not on filedocumented in this encounter
--- OUTSIDE RECORDS SUMMARY | 2024-05-14 13:55 | XMS_ITS | Referral Summary ---
Author Organization [facility] Address [address] [place] [address] Care Team Providers Care Data Coder Operator Name Role Phone Unavailable Primary Care Provider Unavailabl e Source Comments Patient records contain information from all sites at [facility]. For routine questions regarding patient records, call [phone] during business hours, M-F 8:00 AM - 5:00 PM Central Time. Record requests for emergency care only can be directed to [phone] at any time.[facility] Encounters Date Type Department Care Team Description 04/30/2024 Orders Only Division of Gastroenterology in [place], [place] [address] [place] [address] Yvette Moncada M.D., M.P.H. 04/29/2024 Refill Division of Gastroenterology in [place], [place] [address] [place] [address] Yvette Moncada M.D., M.P.H. Med Change Request 04/29/2024 4:00 PM CDT Virtual Visit Division of Gastroenterology in [place], [place] [address] [place] [phone] Yvette Moncada M.D., M.P.H. Constipation (Primary Dx); Dysfunction Pelvic Floor Female 04/16/2024 8:00 AM CDT Clinical Support [facility] in [place], [place] [address] [place] [address] Yvette Moncada M.D., M.P.H. Lisa Montes R.N. Gastroparesis; Diarrhea; Anemia Iron Deficiency; Constipation 04/16/2024 8:50 AM CDT - 04/16/2024 11:59 PM CDT Hospital Encounter Division of Gastroenterology in [address] [address] Yvette Moncada M.D., M.P.H. Gastroparesis; Diarrhea; Anemia Iron Deficiency; Constipation Discharge Disposition: Home or Self Care 04/10/2024 7:44 AM CDT - 04/10/2024 11:59 PM CDT Hospital Encounter Department of Radiology, [address] [address] Kirk Senior M.D. Discharge Disposition: Home or Self Care 04/09/2024 6:25 AM CDT - 04/09/2024 11:59 PM CDT Hospital Encounter Department of Radiology, [address] [address] Kirk Senior M.D. Discharge Disposition: Home or Self Care 04/08/2024 2:15 PM CDT - 04/08/2024 11:59 PM CDT Hospital Encounter Department of Radiology, [address] [address] Kirk Senior M.D. Discharge Disposition: Home or Self Care 04/08/2024 10:12 AM CDT - 04/08/2024 2:14 PM CDT Hospital Encounter Department of Radiology, [facility], in [place], [place] [address] [place] [phone] Kirk Senior M.D. Discharge Disposition: Home or Self Care 04/08/2024 9:13 AM CDT - 04/08/2024 10:11 AM CDT Hospital Encounter Department of Radiology, [facility], in [address] [address] Kirk Senior M.D. Discharge Disposition: Home or Self Care 04/08/2024 8:10 AM CDT - 04/08/2024 9:12 AM CDT Hospital Encounter Department of Radiology, [facility], [address] [address] Kirk Senior M.D. Discharge Disposition: Home or Self Care 04/08/2024 6:55 AM CDT - 04/08/2024 8:09 AM CDT Hospital Encounter Department of Radiology, [facility], in [address] [address] Kirk Senior M.D. Gastroparesis Discharge Disposition: Home or Self Care 04/07/2024 12:30 PM CDT - 04/07/2024 11:59 PM CDT Hospital Encounter Department of Radiology, [facility] in [address] [address] Yvette Moncada M.D., M.P.H. Gastroparesis; Diarrhea; Anemia Iron Deficiency; Constipation Discharge Disposition: Home or Self Care 04/07/2024 9:20 AM CDT Comprehensive Visit Division of Gastroenterology in [address] [address] Yvette Moncada M.D., M.P.H. Gastroparesis (Primary Dx); Diarrhea; Anemia Iron Deficiency; Constipation 03/31/2024 1:00 PM CDT Clinical Communication Virtual Review in [address] [address] Previsit Preparation (TORSTEN DD) 02/14/2024 Clinical Communication Division of Gastroenterology in [address] [address] Javier White M.B.B.S. from Last 3 Months Allergies Active Allergy Reactions Criticality Noted Date [...] Take 1 tablet by mouth daily. 05/01/2012 Discontinued(The rapy completed) magnesium 250 mg tablet [...] topically. 02/21/2023 4 Discontinued(Dup licate order) omega 1-hjy-whn-fish oil 1,000 mg (120 mg-180 mg) capsule [...] (05/21/2018): Added automatically from request for surgery [id number] Dysthymic disorder 01/28/2018 Hypercholesterolemia 01/28/2018 Irritable Bowel [...] Hole Retinal Without Detachment Right 11/30/2004 04/17/2018 Immunizations Name Administration Dates Next Due HZV (ZOSTAVAX) 08/04/2016 Influenza Split 05/23/2011 Influenza TIV (IM) 05/10/2015, 1,05/01/2010,2008 Influenza, Seasonal, Injectable 04/30/2009 Influenza, Unspecified 05/21/2018 PCV13 07/19/2015 PPSV23 02/16/2011 RZV (SHINGRIX) 07/02/2018(Deferred: Not available from housekeeping aide) Tdap 11/08/2011,09/05/2011 influenza trivalent high dos e (HD)(PF) 05/30/2017,05/28/2016,05/10/2015,2010 influenza trivalent vaccine (6 months and older)(PF) 05/01/2010 Social History Tobacco Use Types Packs/Day Years Used Date Smoking Tobacco: Never Smokeless Tobacco: Never Tobacco Cessation:Counseling Given: Not Answered Alcohol Use Standard Drinks/Week Comments Yes 0 (1 standard drink = 0.6 oz pur e alcohol) Rarely have a drink. [facility] Utilities Answer Date Recorded In [...] Family Three times a week 04/19/2019 Attends Buddhism Services More than 4 times per year [...] Answer Date Recorded PHQ-2 Score 2 01/11/2019 [facility] Questionnaire Answer Date [...] Master's degree (e.g., MA, MS, Good, MEd, FASHION DIRECTOR, REBECCA) 04/19/2019 Sex and Gender Information Value [...] 04/07/2024 9:32 AM CDT Plan of Treatment Not on file Medical Devices Implanted Type Area Hatch Tender Device Identifier Shelf Expiration Date Model / [...] 24 to 48 hours. Kirk Senior M.D. [facility] PROCEDURES * (ABNORMAL) Pancreatic Elastase, Feces (04/08/2024 1:29 PM CDT) Pancreatic Elastase, F <40(L) >200 (Normal) mcg/g 04/10/2024 6:15 PM CDT [facility] Comment: Interpretation: Abnormal (<100 mcg/g); Consistent with pancreatic insufficiency Stool (Stool) 04/08/2024 1:2 9 PM CDT 04/10/2024 11:33 AM CDT Yvette Moncada M.D., M.P.H. LAB BODY FLU IDS AND STOOLS ORDERABLES Performing Organization Address [facility]/State/ZIP Co de Phone Number [facility] [address] [place] [address] [facility] [address] [place] [address] * DX Abdomen 1 View (04/07/2024 1:51 [...] and Vitamin E (04/07/2024 11:19 AM CDT) [facility] Vitamin A 57.8 32.5 - 78.0 mcg/dL 04/10/2024 12:08 PM CDT [facility] Comment: ----ADDITIONAL INFORMATION---- This test was developed and its performance characteristics determined by [facility] in a manner consistent with CLIA requirements. This test has not been cleared or approved by the U.S. Food and Drug Administration. A-Tocopherol, Vitamin E 21.9(H) 5.5 - 17.0 mg/L 04/09/2024 10:11 AM CDT [facility] Blood (Blood, Venous) 04/07/2024 11:19 AM CDT 04/08/2024 11:37 AM CDT Yvette Moncada M.D., M.P.H. LAB BLOOD NO N ADD-ON Performing Organization Address City/[facility]/ZIP Co de Phone Number [facility] [address] [place] [address] [facility] [address] [place] [address] [place] [address] * Iron and Total Iron-Binding Capacity (04/07/2024 [...] LAB BLOOD AD D-ON Performing Organization Address City/[facility]/ZIP Co de Phone Number [facility] [address] [place] [address], [facility] [address] [place] [address] * 25-Hydroxyvitamin D2 and D3 (04/07/2024 11:19 AM CDT) 25-Hydroxy D2 <4.0 ng/mL 04/09/2024 11:28 AM CDT [facility] 25-Hydroxy D3 61 ng/mL 04/09/2024 11:28 AM CDT [facility] 25-Hydroxy D Total 61 ng/mL 2023 11:28 AM CDT [facility] Comment: Interpretation: 51-80 ng/mL (increased risk of hypercalciuria) ----REFERENCE VALUE---- 25-HYDROXY D TOTAL (D2+D3) Optimum levels in the healthy population are 20-50. ----ADDITIONAL INFORMATION---- This test was developed and its performance characteristics determined by [facility] in a manner consistent with CLIA requirements. This test has not been cleared or approved by the U.S. Food and Drug Administration. Blood (Blood, Venous) 04/07/2024 11:19 AM CDT 04/08/2024 7:09 AM CDT Yvette Moncada M.D., M.P.H. LAB BLOOD AD D-ON [facility] [address] [place] [address] [facility] [address] [place] [address] [place] [address] * Prothrombin Time (PT) (04/07/2024 11:19 AM CDT) Prothrombin Time, P 10.8 9.4 - 12.5 [...] LAB BLOOD AD D-ON Performing Organization Address [facility]/RUST Co de Phone Number [facility] [address] [place] [address], [facility] DTL [facility] [address] [place] [address] * Ferritin (04/07/2024 11:19 AM CDT) Pathologist [facility] Ferritin, S 49 11 - 328 mcg/L 04/07/2024 12:26 PM CDT DTL Blood (Blood, Venous) 04/07/2024 11:19 AM CDT 04/07/2024 11:58 AM CDT Yvette Moncada M.D., M.P.H. LAB BLOOD AD D-ON [facility] [address] [place] [address], [facility] DTL [facility] [address] [place] [address] * (ABNORMAL) Comprehensive Metabolic Panel (04/07/2024 11:19 AM CDT) Potassium, S 4.6 3.6 - 5.2 mmol/L [...] Moncada M.D., M.P.H. LAB BLOOD AD D-ON [facility] [address] [place] [address], [facility] DTL [facility] [address] [place] [address] * (ABNORMAL) CBC with Differential, Blood (04/07/2024 [...] Moncada M.D., M.P.H. LAB BLOOD AD D-ON [facility] [address] [place] [address], [place] DTL [facility] [address] [place] [address] [facility] [address] [place] [address] from Last 3 Months
--- OUTSIDE RECORDS SUMMARY | 2024-05-14 13:55 | XMS_ITS ---
Author Organization [facility] Address [address] [place] [address] Care Team Providers Care Outreach Director Name Role Phone Unavailable Unavailable Unavailable Surgery Details Not on file Complications Check Surgery Details section. Procedure Estimated Blood Loss Check Surgery Details section. Procedure Findings Check Surgery Details section. Procedure Specimens Taken Check Surgery Details section.
--- OUTSIDE RECORDS SUMMARY | 2024-05-14 13:55 | XMS_ITS | Encounter Summary ---
Author Organization [facility] Address [address] [place] [address] Care Team Providers Care Audio Visual Manager Name Role Phone Unavailable Primary Care Provider Unavailabl e Reason for Referral * Physical Therapy (Routine) - Authorized Specialty Diagnoses / Procedures Referred By Contac t Referred To Contact Diagnoses Constipation Dysfunction Pelvic Floor Female Procedures PMR Pelvic floor & bowel/bladder rehab Yvette Moncada M.D., M.P.H. 200 [place] [address] [facility] Referral ID Status Reason Start Date Expiration Date V isits Requested Visits Authorized [id number] Authorized 04/29/2024 04/29/2025 99 99 Reason for Visit * Outpatient (Routine) - Closed Specialty Diagnoses / Procedures Referred By Contact Referred To Contact Gastroenterology and Hepatology Yvette Moncada M.D., M.P.H. [address] [place] [phone] [facility] Referral ID Status Reason Start Date Expiration Date Visits Re quested Visits Authorized [id number] Closed 04/07/2024 10/07/2025 1 1 Encounter Details Date Type Department Care Team (Latest Contact Info) Description 04/29/2024 4:00 PM CDT Virtual Visit Division of Gastroenterology in [place], [place] [address] [place] [address] Yvette Moncada M.D., M.P.H. [address] [place] [address] Constipation (Primary Dx); Dysfunction Pelvic Floor Female Social History Tobacco Use Types Packs/Day Years Used Date Smoking Tobacco: Never Smokeless Tobacco: Never Alcohol Use Standard Drinks/Week Comments Yes 0 (1 standard drink = 0.6 oz pur e alcohol) Rarely have a drink. [facility] Utilities Answer Date Recorded In the [...] Family Three times a week 04/19/2019 Attends Jain Services More than 4 times per year [...] Answer Date Recorded PHQ-2 Score 2 01/11/2019 [facility] Occupat ional Health - Occupational Stress [...] your living situation today? [facility] live 04/05/2024 Education Answer Date Recorded What is the highest level of school you have completed or the highest degree you have received? Master's degree (e.g., MA, MS, Good, MEd, TAKER OUT, REBECCA) 04/19/2019 Sex and Gender Information Value Date Recorded Sex Assigned at Female 05/17/2018 6:44 PM CDT Gender Identity Not on file Sexual Orientation Not on file documented as of this encounter Progress Notes * Yvette Moncada M.D., M.P.H. - 04/29/2024 4:00 PM CDT SUBJECTIVE Patient ID: David Espino is a 78 y.o. female who presents for follow up ASSESSMENT / PLAN Mrs. Espino is a 78-year-old female who is seen in clinic for gastroparesis. Her main symptoms are worsening post-prandial fullness after the hiatal hernia repair in January 2023, which was also followedby 3 months history of diarrhea, [place] 7, about 5 times a day which resolved and now she is more constipated. #1 Constipation #2 Bloating likely secondary to #1 Abdominal X-ray showed moderate stool burden Gastric emptying normal at 1 hr, slightly delayed at 2 hrs, she missed the 4 hrs images (not evaluated) Colon transit is delayed Advised to start Motegrity 1 mg daily for 2 weeks, if tolerated we will increase it to 2 mg daily Reassured that even if she has gastroparesis Motegrity would work on that and the slow-transit constipation #3 Possible pelvic floor dysfunction Anorectal manometry showed evacuation disorder PT referral for evaluation #4 Previous history of iron deficiency anemia Iron profile and ferritin were within normal limits #5 Previous history of pancreatic insufficiency on background of pancreatic atrophy on scan Pancreatic elastase is deficient Advised to continue taking Creon as prescribed by her local GI Vitamin E was elevated, the rest of vitamins were within normal limit, she used to take high potency multivitamins concentrated in fat-soluble vitamins, likely the reason for high vitamin E, now she is taking regular multivitamins I have spent 20 minutes with the patient, all questions were addressed Together with the patient, the consultative practice model of care was discussed, and final recommendations have been shared with the patient and/or referring providers. To support the patient???s ongoing health needs, the patient was instructed to continue care with their local team or to establish longitudinal specialty care locally. With final recommendations shared with the patient and/or their referring care team, no follow up at [facility] is planned for this indication. Appreciation wasshared with the patient for utilizing the consultative practice at [facility]. documented in this encounter Plan of Treatment Not on file documented as of this encounter Visit Diagnoses Diagnosis Constipation- Primary Dysfunction Pelvic Floor Female documented in this encounter
--- OUTSIDE RECORDS SUMMARY | 2024-05-14 13:56 | XMS_ITS | Encounter Summary ---
Author Organization [facility] Address [address] [place] [address] Care Team Providers Care Supervisor Airplane Flight Attendant Name Role Phone Unavailable Primary Care Provider Unavailabl e Reason for Visit * Reason Onset Date Comments Previsit Preparation 03/31/2024 TORSTEN DD Encounter Details Date Type Department Care Team (Latest Contact Info) Description 03/31/2024 1:00 PM CDT Clinical Communication Virtual Review in [place], [place] 200 [place] [address] Previsit Preparation (TORSTEN DD) Social History Tobacco Use Types Packs/Day Years Used Date Smoking Tobacco: Never Smokeless Tobacco: Never Tobacco Cessation:Counseling Given: Not Answered Alcohol Use Standard Drinks/Week Comments Yes 0 (1 standard drink = 0.6 oz pur e alcohol) Rarely have a drink. Social Connection and Isolat ion Panel [NHANES] Answer Date Recorded Frequency of Communication w ith Friends and Family More than three times a week 04/19/2019 Frequency of Social Gatherin gs with Friends and Family Three times a week 04/19/2019 Attends Mormonism Services More than 4 times per year [...] Answer Date Recorded PHQ-2 Score 2 01/11/2019 [facility] of Occupat ional Health - Occupational Stress Questionnaire Answer Date Recorded Feeling of Stress To some extent 04/19/2019 Exercise Vital Sign Answer Date Recorde d Days of Exercise per Week 5 days 2018 Minutes of Exercise per Session 30 min 04/19/2019 Hunger Vital Sign Answer Date Recorded Worried About Running Out of Food in the Last Ye ar Never true 04/19/2019 Ran Out of Food in the Last Year Never true 04/19/2019 PRAPARE - Transportation Answer Date Re corded Lack of Transportation (Medical) No 04/19/2019 Lack of Transportation (Non-Medical) No 04/19/2019 Nutrition Answer Date Recorded Nutrition: EVOO Fat Source 12 05/01 Nutrition: Servings of Fruits/Vegetables per Day 2-3 05/01/2020 Dental Answer Date Recorded Dental: Regular Dentist Unknown 10/04/19 21 Education Answer Date Recorded What is the highest level of school you have completed or the highest degree you have received? Master's degree (e.g., MA, MS, Good, MEd, BLACK [employer]SH BURNER OPERATOR, REBECCA) 04/19/2019 Sex and Gender Information Value Date Recorded Sex Assigned at Female 05/17/2018 6:44 PM CDT Gender Identity Not on file Sexual Orientation Not on file documented as of this encounter Plan of Treatment Not on file documented as of this encounter Visit Diagnoses Not on filedocumented in this encounter
--- OUTSIDE RECORDS SUMMARY | 2024-05-14 13:56 | XMS_ITS | Encounter Summary ---
Author Organization [facility] Address [address] [place] [address] Care Team Providers Care Fisher Seal Name Role Phone Unavailable Primary Care Provider Unavailabl e Reason for Referral * Outpatient (Routine) - Closed Specialty Diagnoses / Procedures Referred By Contac t Referred To Contact Diagnoses Gastroparesis Diarrhea Anemia Iron Deficiency Constipation Procedures DX Abdomen 1 View Yvette Moncada M.D., M.P.H. 200 [place] [address] [facility] Referral ID Status Reason Start Date Expiration Date Visits Re quested Visits Authorized [id number] Closed 04/07/2024 04/07/2025 1 1 * Outpatient (Routine) - Closed Specialty Diagnoses / Procedures Referred By Conttarik t Referred To Contact Diagnoses Gastroparesis Diarrhea Anemia Iron Deficiency Constipation Procedures Enema Prep Yvette Moncada M.D., M.P.H. [address] [place] [phone] [facility] Referral ID Status Reason Start Date Expiration Date Visits Re quested Visits Authorized [id number] Closed 04/07/2024 04/07/2025 1 1 * Outpatient (Routine) - Closed Specialty Diagnoses / Procedures Referred By Contac t Referred To Contact Diagnoses Gastroparesis Diarrhea Anemia Iron Deficiency Constipation Procedures Anorectal Manometry Yvette Moncada M.D., M.P.H. [address] [place] [phone] [facility] Referral ID Status Reason Start Date Expiration Date Visits Re quested Visits Authorized [id number] Closed 04/07/2024 04/07/2025 1 1 * Outpatient (Routine) - Closed Specialty Diagnoses / Procedures Referred By Contact Referred To Contact Gastroenterology and Hepatology Yvette Moncada M.D., M.P.H. [address] [place] [phone] [facility] Referral ID Status Reason Start Date Expiration Date Visits Re quested Visits Authorized [id number] Closed 04/07/2024 10/07/2025 1 1 Reason for Visit * Appointment Request (Routine) - Closed Specialty Diagnoses / Procedures Referred By Contact Referred To Contact Gastroenterology and Hepatology Diagnoses Gastroparesis Referral ID Status Reason Start Date Expiration Date Visits Re quested Visits Authorized [id number] Closed 01/15/2024 01/14/2025 1 1 Encounter Details Date Type Department Care Team (Latest Contact Info) Description 04/07/2024 9:20 AM CDT Comprehensive Visit Division of Gastroenterology in [place], [place] [address] [place] [phone] Yvette Moncada M.D., M.P.H. [address] [place] [phone] Gastroparesis (Primary Dx); Diarrhea; Anemia Iron Deficiency; Constipation Social History Tobacco Use Types Packs/Day Years Used Date Smoking Tobacco: Never Smokeless Tobacco: Never Alcohol Use Standard Drinks/Week Comments Yes 0 (1 standard drink = 0.6 oz pur e alcohol) Rarely have a drink. [facility] Utilities Answer Date Recorded In the [...] Family Three times a week 04/19/2019 Attends Orthodox Services More than 4 times per year [...] Answer Date Recorded PHQ-2 Score 2 01/11/2019 [facility] - Occupational Stress [...] living situation today? I have a [facility] place to live 04/05/2024 Education Answer Date Recorded What is the highest level of school you have completed or the highest degree you have received? Master's degree (e.g., MA, MS, Good, MEd, TWO WAY RADIO TECHNICIAN, REBECCA) 04/19/2019 Sex and Gender Information Value Date Recorded Sex Assigned at Female 05/17/2018 6:44 PM CDT Gender Identity Not on file Sexual Orientation Not on file documented as of this encounter Last Filed Vital Signs Vital Sign Reading Time Taken Comments Blood Pressure 160/87 04/07/2024 9:32 AM CDT Pulse 78 04/07/2024 9:32 AM CDT Temperature - - Respiratory Rate - - Oxygen Saturation - - Inhaled Oxygen Concentration - - Weight 63.3 kg (139 lb 8.8 oz) 04/07/2024 9:32 A M CDT Height 157 cm (5' 1.81) 04/07/2024 9:32 AM CDT Body Mass Index 25.68 04/07/2024 9:32 AM CDT documented in this encounter Consult Notes * Yvette Moncada M.D., M.P.H. - 04/07/2024 9:20 AM CDT Referring Physician: No ref. provider found Primary Care Physician: No primary care provider on file. Subjective: Chief Complaint/Reason for Consult: gastroparesis HPI: Mrs. Espino is a 78-year-old female who is seen in clinic today for gastroparesis. Her main symptomsare worsening post-prandial fullness after the hiatal hernia repair in January 2023, which was also followed by 3 months history of diarrhea, Sciota 7, about 5 times a day which resolved and now she ismore constipated, Sciota 3-4, passing about 3 times a week associated with incomplete evacuation but no straining, blood or black stool. She also reported bloating that is aggravated by eating and improves after defecation. She was concerned about the diagnosis of SIBO and exocrine pancreatic insufficiency given at another institution. She denied weight loss, abdominal pain, vomiting, painful ordifficult swallowing, chest pain, shortness of breath, lumps or bumps in the body. Past medical history: Hiatal hernia repair 2022 Hypothyroidism Iron deficiency anemia GERD Current medications: Creon Pepcid Iron supplements Milk of magnesia as needed Previous medications: None Family history: No sinister GI family history Social history: Retired social worker psychiatric Physically active Not on strict gastroparesis diet but tries to reduce fiber intake Limited water intake about 6 cups daily She denied smoking, alcohol consumption, marijuana/cannabis use No previous history of abuse Previous investigations: Gastric emptying (after the hiatal hernia repair) was delayed CT abdomen in 2023: showed atrophy of the pancreas and moderate to large hiatus hernia EGD in 02/2024: normal Colonoscopy in 02/2024: tubular adenoma Review of Systems Pertinent items are noted in HPI. Objective: Physical Exam General appearance: alert and cooperative Eyes: Anicteric sclera. Pupils are equally round and reactive to light. Extraocular movements are intact. Throat: lips, mucosa, and tongue normal; teeth and gums normal Neck: no adenopathy Lungs: clear to auscultation bilaterally Heart: regular rate and rhythm, S1, S2 normal, no murmur, click, rub or gallop Abdomen: soft, non-tender; bowel sounds normal; no masses, no organomegaly; rectal examination: reduced resting tone, normal squeeze and simulated evacuation Assessment/Plan: Mrs. Espino is a 78-year-old female who is seen in clinic today for gastroparesis. Her main symptomsare worsening post-prandial fullness after the hiatal hernia repair in January 2023, which was also followed by 3 months history of diarrhea, Sciota 7, about 5 times a day which resolved and now she ismore constipated #1 Constipation #2 Bloating likely secondary to #1 Abdominal X-ray Gastric emptying and transit After the tests will start the patient on bowel regimen, possible Motegrity or metronidazole based on the response #3 Possible pelvic floor dysfunction Anorectal manometry PT referral for evaluation #4 Previous history of iron deficiency anemia Iron profile and ferritin #5 Previous history of pancreatic insufficiency Pancreatic elastase Fat soluble vitamins level and coagulation profile Return after tests I have spent 60 minutes with the patient, 50% involved hqlb-fh-[id number] constulation and assessment. Patient was seen by Dr. Senior, plan of care was discussed in details. Electronically signed by: Yvette Moncada M.D., M.P.H. 04/07/2024 9:27 AM CDT * Kirk Senior M.D. - 04/07/2024 9:20 AM CDT SUBJECTIVE REASON FOR CONSULT Gastroparesis. REFERRAL SOURCE Self. HISTORY OF PRESENT ILLNESS I have had the privilege to review the history physical examination findings and management plans as per Dr. Yvette Moncada. ASSESSMENT / PLAN #1 Chronic gastrointestinal symptoms Mrs. Espino is a pleasant lady, 78 years of age, with chronic gastrointestinal symptoms. She was seen here a number years ago for large hiatal hernia. She underwent hiatal hernia repair in January 2023. Since that time, she has continued to have gastrointestinal symptoms and underwent additional evaluation with gastric emptying scan that demonstrated a significant delay. She is not troubled by nauseaand vomiting, however. Her weight has decreased by approximately 3 kg compared to baseline, but sheis not particularly aware of this. She was found to have borderline iron studies and underwent upper and lower endoscopy elsewhere. There were retained gastric contents on initial upper endoscopy exam. She has also had breath testing that demonstrated elevated methane levels at baseline with further increases after substrate challenge. She has also had cross- sectional imaging with CT that suggested pancreatic atrophy and recurrent hiatal hernia. She does not have history of excessive alcohol use. She is now referred for additional evaluation and management. In this setting, I agree with additional evaluation including plain abdominal x- ray, basic laboratory tests including fat-soluble vitamins, fecal pancreatic elastase, whole gut transit, and anorectalmanometry. We will provide a final diagnosis and management recommendations after studies are complete. Kirk Senior M.D. CT CT Job ID: [id number]/ documented in this encounter Plan of Treatment Scheduled Orders Name Type Priority Associated Diagnoses Orde r Schedule Enema Prep Procedures Routine Gastroparesis Diarrhea Anemia Iron Deficiency Constipation Expected: 04/07/2024 (Approximate), Expires: 07/07/2025 Scheduled Referrals Name Type Priority Associated Diagnoses Order Schedule Gastroenterology and Hepatology office visit (clinic) Outpatient Referral Routine 1 Occurrences starting 04/07/2024 until 07/07/2025 documented as of this encounter Results * Anorectal Manometry (04/17/2024 6:46 AM CDT) Yvette Moncada M.D., M.P.H. GI PROCEDURE ORDERABLES Performing Organization Address [facility] Co de Phone Number MMODAL NA * (ABNORMAL) Pancreatic Elastase, Feces (04/08/2024 1:29 PM CDT) Pancreatic Elastase, F <40(L) >200 (Normal) mcg/g 04/10/2024 6:15 PM CDT [facility] Comment: Interpretation: Abnormal (<100 mcg/g); Consistent with pancreatic insufficiency Stool (Stool) 04/08/2024 1:2 9 PM CDT 04/10/2024 11:33 AM CDT Yvette Moncada M.D., M.P.H. LAB BODY FLU IDS AND STOOLS ORDERABLES Performing Organization Address City/[facility] Co de Phone Number [facility] [address] [place] [address] [facility] [address] [place] [address] * DX Abdomen 1 View (04/07/2024 1:51 [...] M.P.H. IMG DIAGNOST IC IMAGING PROCEDURES * Prothrombin Time (PT) (04/07/2024 11:19 AM [...] Moncada M.D., M.P.H. LAB BLOOD AD D-ON [facility] [address] [place] [address], [facility] [address] [place] [address] * (ABNORMAL) Vitamin A and Vitamin E (04/07/2024 11:19 AM CDT) Vitamin A 57.8 32.5 - 78.0 mcg/dL 04/10/2024 12:08 PM CDT [facility] Comment: ----ADDITIONAL INFORMATION---- This test was developed and its performance characteristics determined by [facility] in a manner consistent with CLIA requirements. This test has not been cleared or approved by the U.S. Food and Drug Administration. A-Tocopherol, Vitamin E 21.9(H) 5.5 - 17.0 mg/L 04/09/2024 10:11 AM CDT [facility] Blood (Blood, Venous) 04/07/2024 11:19 AM CDT 04/08/2024 11:37 AM CDT Yvette Moncada M.D., M.P.H. LAB BLOOD NO N ADD-ON [facility] [address] [place] [address] [facility] [address] [place] [address] [place] [address] * Ferritin (04/07/2024 11:19 AM CDT) Ferritin, S 49 11 - 328 mcg/L 04/07/2024 12:26 PM CDT [facility] Blood (Blood, Venous) 04/07/2024 11:19 AM CDT 04/07/2024 11:58 AM CDT Yvette Moncada M.D., M.P.H. LAB BLOOD AD D-ON Performing Organization Address City/[facility] Co de Phone Number [facility] [address] [place] [address], [facility] [address] [address] * Iron and Total Iron-Binding Capacity (04/07/2024 [...] M.D., M.P.H. LAB BLOOD AD D-ON [facility] [address] [place] [address], [facility] DTL [facility] [address] [place] [address] * 25-Hydroxyvitamin D2 and D3 (04/07/2024 11:19 AM CDT) 25-Hydroxy D2 <4.0 ng/mL 04/09/2024 11:28 AM CDT [facility] 25-Hydroxy D3 61 ng/mL 04/09/2024 11:28 AM CDT [facility] 25-Hydroxy D Total 61 ng/mL 2023 11:28 AM CDT [facility] Comment: Interpretation: 51-80 ng/mL (increased risk of hypercalciuria) ----REFERENCE VALUE---- 25-HYDROXY D TOTAL (D2+D3) Optimum levels in the healthy population are 20-50. ----ADDITIONAL INFORMATION---- This test was developed and its performance characteristics determined by [facility] in a manner consistent with CLIA requirements. This test has not been cleared or approved by the U.S. Food and Drug Administration. Blood (Blood, Venous) 04/07/2024 11:19 AM CDT 04/08/2024 7:09 AM CDT Yvette Moncada M.D., M.P.H. LAB BLOOD AD D-ON Performing Organization Address City/[facility]/ZIP Co de Phone Number [facility] [address] [place] [address] [facility] [address] [place] [address] [place] [address] * (ABNORMAL) Comprehensive Metabolic Panel (04/07/2024 11:19 [...] Moncada M.D., M.P.H. LAB BLOOD AD D-ON [facility] [address] [place] [address], [facility] DTL [facility] [address] [place] [address] * (ABNORMAL) CBC with Differential, Blood (04/07/2024 [...] Moncada M.D., M.P.H. LAB BLOOD AD D-ON [place] [address] [place], [place] [address] DTL [facility] [address] [place] [address] [facility] [address] [place] [address] documented in this encounter Visit Diagnoses Diagnosis Gastroparesis- Primary Diarrhea Anemia Iron Deficiency Constipation Gastroparesis Diarrhea Anemia Iron Deficiency Constipation documented in this encounter
--- OUTSIDE RECORDS SUMMARY | 2024-05-14 13:56 | XMS_ITS | Encounter Summary ---
Author Organization [facility] Address [address] [place] [address] Care Team Providers Care Industrial Cafeteria Manager Name Role Phone Unavailable Primary Care Provider Unavailabl e Encounter Details Date Type Department Care Team (Late st Contact Info) Description 11/30/2004 Historical Ophthalmology [facility] Mariluz Sanchez M.D. Social History Tobacco Use Types Packs/Day Years Used Date Smoking Tobacco: Never Assessed Sex and Gender Information Value Date Recorded Sex Assigned at Female 05/17/2018 6:44 PM CDT Gender Identity Not on file Sexual Orientation Not on file documented as of this encounter Progress Notes * Mariluz Sanchez M.D. - 11/30/2004 12:00 AM CDT Eye General CHIEF COMPLAINT Pulsing sensation in right eye x 01/06 (? physical vs. visual- has difficulty explaining) HISTORY OF PRESENT ILLNESS 59 Year old female states she went to a local [facility] who noted retinal tears (3)(right eye) 01/28/04; had laser completed. Continues floaters when I roll my eyes a certain way. Occasional flashes at night when I turn my head (right eye). Denies specific vision complaints at distance andnear with current glasses. Dull ache, pain in forehead. Past stabbing pains (right eye) last summer; denies currently. Occasional pain , burning (right eye). Uses Systane on occasion with some relieffrom dryness. Denies diplopia. States they have been monitoring ocular pressures; elevated (both eyes) post laser (right eye). Sees Dr. Danay Gonsales in [place], [place]. Has seen Dr. Teddy Peace in [place] for laser (right eye) . IMPRESSION / REPORT / PLAN #1 Right facial pain, intermittent, no ocular cause identified Currently being evaluated #2 Status post radial keratotomy, bilateral, stable #3 Resdiual refractive error #4 Status post photocoagulation of retinal tears, right eye, stable. #5 Dry eye syndrome, Discussed lubrication DIAGNOSIS #1 Right facial pain, intermittent, no ocular cause identified #2 Status post radial keratotomy, bilateral, stable #3 Resdiual refractive error #4 Status post photocoagulation of retinal tears, right eye, stable. #5 Dry eye syndrome, CDM Reports - EYEGEN Id: [id number] Status: Fnl documented in this encounter Plan of Treatment Not on file documented as of this encounter Visit Diagnoses Not on filedocumented in this encounter
--- OUTSIDE RECORDS SUMMARY | 2024-05-14 13:56 | XMS_ITS | Encounter Summary ---
Author Organization [facility] Address [address] [place] [address] Care Team Providers Care Grievance Coordinator Name Role Phone Unavailable Primary Care Provider Unavailabl e Reason for Visit * Outpatient (Routine) - Authorized Specialty Diagnoses / Procedures Referred By Contac t Referred To Contact Diagnoses Gastroparesis Procedures NM Gastric Emptying with SB with Colonic Transit Time 48 hr Kirk Senior M.D. 200 [place] [phone] [facility] Referral ID Status Reason Start Date Expiration Date V isits Requested Visits Authorized [id number] Authorized 01/26/2024 01/25/2025 8 8 Encounter Details Date Type Department Care Team (Latest Contact Info) Description 04/08/2024 10:12 AM CDT - 04/08/2024 2:14 PM T Hospital Encounter Department of Radiology, [facility] in [place], [place] [address] [place] [address] Kirk Senior M.D. [address] [place] [phone] Discharge Disposition: Home or Self Care Social History Tobacco Use Types Packs/Day Years Used Date Smoking Tobacco: Never Smokeless Tobacco: Never Alcohol Use Standard Drinks/Week Comments Yes 0 (1 standard drink = 0.6 oz pur e alcohol) Rarely have a drink. [facility] Utilities Answer Date Recorded In the [...] Answer Date Recorded PHQ-2 Score 2 01/11/2019 [facility] Questionnaire Answer Date [...] your living situation today? I have a [facility] place to live 04/05/2024 Education Answer Date Recorded What is the highest level of school you have completed or the highest degree you have received? Master's degree (e.g., MA, MS, Good, MEd, ELEVATOR CONDUCTOR, REBECCA) 04/19/2019 Sex and Gender Information Value Date Recorded Sex Assigned at Female 05/17/2018 6:44 PM CDT Gender Identity Not on file Sexual Orientation Not on file documented as of this encounter Medications at Time of Discharge Medication Sig Dispensed Refills Start Date End Date ALPRAZolam (Xanax) 0.25 mg tablet Take 1 tablet by mouth at bedtime as needed. 01/28/2018 azelastine HCl (AZELASTINE NASAL) Administer 2 sprays into affected nostril(s) daily. Azelastine spray. 05/01/2012 calcium carbonate-vitamin D3 600 mg-12.5 mcg (500 unit) capsule Take by mouth. 03/06/2022 famotidine (PEPCID) 40 mg tablet Take 40 mg by mouth 2 (two) times a day. ibandronate (Boniva) 150 mg tablet Take 150 mg by mouth. 04/29/2023 iron,carbonyl-vitamin C (Vitron-C) 65 mg iron- [address] tablet Take 65 mg of iron by mouth daily. Do not crush or chew. levothyroxine (SYNTHROID, LEVOTHROID) 75 mcg tablet Take 75 mcg by mouth every morning before breakfast. rmwjve-eohogvtd-rtrzvrw (Creon) 3,000-9,500-15,[address] capsule Take by mouth. 01/24/2024 melatonin 1 mg tablet Take 1 mg by mouth at bedtime. MULTIVITAMIN ORAL Take 1 tablet by mouth daily. OMEGA-3 FATTY ACIDS ORAL Take 1 capsule by mouth 2 (two) times a day. 2000 mg. 05/01/2012 simvastatin (Zocor) 20 mg tablet Take 20 mg by mouth. 04/29/2023 timolol (Istalol) 0.5 % ophthalmic solution Administer into affected eye(s). 02/21/2023 traZODone (DesyreL) 50 mg tablet Take 50 mg by mouth. 04/29/2023 tretinoin (Retin-A) 0.05 % cream See Admin Instructions. See attached for detailed directions. 03/26/2024 calcium carbonate 1,500 mg (600 mg calcium) tablet Take 1 tablet by mouth daily. 05/01/2012 04/16/2024 famotidine (Pepcid) 20 mg tablet Take 20 mg by mouth. 03/06/2022 024 ibandronate (Boniva) 150 mg tablet Take 150 mg by mouth every 30 (thirty) days. 04/16/2024 levothyroxine 75 mcg tablet Take 75 mcg by mouth. 04/29/20232023 lztnjs-gezlzoau-cvwwaob (Creon) 24,000-76,000-120,[address] capsule Take 1 capsule by mouth 3 (three) times a day with meals. 04/16/2024 magnesium 250 mg tablet Take 2 tablets by mouth daily. 05/01/2012 04/16/2024 melatonin 3 mg capsule Take 1 mg by mouth. 03/06/2022 04/16/2024 multivitamin tablet Take 1 tablet by mouth. 03/06/2022 04/16/2024 omega 3-nuz-xdx-fish oil 1,000 mg (120 mg-180 mg) capsule Take 1 capsule by mouth. 03/06/2022 04/16/2024 omeprazole (PriLOSEC) [address] capsule Take 10 mg by mouth every morning before breakfast. 04/16/2024 simvastatin (ZOCOR) 20 mg tablet Take 1 tablet by mouth daily. 05/01/2012 04/16/2024 timolol (TIMOPTIC) 0.5 % ophthalmic solution 1 drop 2 (two) times a day. 04/16/2024 traZODone (DESYREL) 50 mg tablet Take 50 mg by mouth at bedtime. 0.5 tabletSide effects of 5-FU (Fluorouracil): [employer]romedex CareNotes Fever, chills, or sore throat Unusual bleeding or bruising Diarrhea, loose watery stools Mouth sores that keep you from drinking li 03/14/2016 04/16/2024 btxqhqhjw-dtrhvgtemiu-z iacin 0.05-1-4 % cream Apply topically. 02/21/2023 0 04/16/2024 documented as of this encounter Plan of Treatment Not on file documented as of this encounter Procedures Procedure Name Priority Date/Time Associated Diagnosis Comments NM GASTRIC EMPTYING WITH SB WITH COLONIC TRANSIT TIME 48 HR RAD - Routine (most inpatients and all outpatients) 04/10/2024 8:31 AM CDT Gastroparesis documented in this encounter Results * NM Gastric Emptying with SB with [...] colonicactivity from 24 to 48 hours. Kirk LEYVA NM PROCEDURES documented in this encounter Visit Diagnoses Not on filedocumented in this encounter
--- OUTSIDE RECORDS SUMMARY | 2024-05-14 13:56 | XMS_ITS | Encounter Summary ---
Author Organization [facility] Address [address] [place] [address] Care Team Providers Care Painter Helper Name Role Phone Unavailable Primary Care Provider Unavailabl e Reason for Referral * Outpatient (Routine) - Closed Specialty Diagnoses / Procedures Referred By Pineda stoner Referred To Contact Diagnoses Gastroparesis Diarrhea Anemia Iron Deficiency Constipation Procedures DX Abdomen 1 View Yvette Moncada M.D., M.P.H. 200 [place] [address] [facility] Referral ID Status Reason Start Date Expiration Date Visits Re quested Visits Authorized [id number] Closed 04/07/2024 04/07/2025 1 1 Reason for Visit * Outpatient (Routine) - Closed Specialty Diagnoses / Procedures Referred By Pineda stoner Referred To Contact Diagnoses Gastroparesis Diarrhea Anemia Iron Deficiency Constipation Procedures DX Abdomen 1 View Yvette Moncada M.D., M.P.H. [address] [place] [phone] [facility] Referral ID Status Reason Start Date Expiration Date Visits Re quested Visits Authorized [id number] Closed 04/07/2024 04/07/2025 1 1 Encounter Details Date Type Department Care Team (Latest Contact Info) Description 04/07/2024 12:30 PM CDT - 04/07/2024 11:59 PM CDT Hospital Encounter Department of Radiology, [facility], in [place], [place] [address] [place] [address] Yvette Moncada M.D., M.P.H. [address] [place] [address] Gastroparesis; Diarrhea; Anemia Iron Deficiency; Constipation Discharge Disposition: Home or Self Care Social History Tobacco Use Types Packs/Day Years Used Date Smoking Tobacco: Never Smokeless Tobacco: Never Alcohol Use Standard Drinks/Week Comments Yes 0 (1 standard drink = 0.6 oz pur e alcohol) Rarely have a drink. [facility] Utilities Answer Date Recorded In [...] Family Three times a week 04/19/2019 Attends Anglican Services More than 4 times per year [...] Answer Date Recorded PHQ-2 Score 2 01/11/2019 [facility] [place] of Occupat ional Health - Occupational Stress [...] your living situation today? I have a [facility] place to live 04/05/2024 Education Answer Date Recorded What is the highest level of school you have completed or the highest degree you have received? Master's degree (e.g., MA, MS, Good, MEd, SOCIAL SERVICES MANAGER, REBECCA) 04/19/2019 Sex and Gender Information Value [...] mcg by mouth every morning before breakfast. ksfdjc-vlwnkkgb-zbyegum (Creon) 3,000-9,500-15,[address] capsule Take [...] tablet Take 20 mg by mouth. 03/06/2022 ibandronate (Boniva) 150 mg tablet Take 150 mg by mouth every 30 (thirty) days. 04/16/2024 levothyroxine 75 mcg tablet Take 75 mcg by mouth. 04/29/20232023 cokahq-xnjmvjmc-qwlvuqe (Creon) 24,000-76,000-120,[address] capsule Take 1 capsule by mouth 3 (three) times a day with meals. 04/16/2024 magnesium 250 mg tablet Take 2 tablets by mouth daily. 05/01/2012 04/16/2024 melatonin 3 mg capsule Take 1 mg by mouth. 03/06/2022 04/16/2024 multivitamin tablet Take 1 tablet by mouth. 03/06/2022 04/16/2024 omega 9-igh-wqi-fish oil 1,000 mg (120 mg-180 mg) capsule [...] keep you from drinking li 03/14/2016 04/16/2024 yqggjekuh-xzwztxuzoee-w iacin 0.05-1-4 % cream Apply topically. 02/21/2023 0 04/16/2024 documented as of this encounter Plan of Treatment Not on file documented as of this encounter Procedures Procedure Name Priority Date/Time Associated Diagnosis Comments DX ABDOMEN 1 VIEW RAD - Routine (most inpatients and all outpatients) 04/07/2024 1:51 PM CDT Gastroparesis Diarrhea Anemia Iron Deficiency Constipation documented in this encounter Results * DX Abdomen 1 View (04/07/2024 1:51 [...] M.D., M.P.H. IMG DIAGNOST IC IMAGING PROCEDURES documented in this encounter Visit Diagnoses Diagnosis Gastroparesis Diarrhea Anemia Iron Deficiency Constipation documented in this encounter
--- OUTSIDE RECORDS SUMMARY | 2024-05-14 13:56 | XMS_ITS | Encounter Summary ---
Author Organization [facility] Address [address] [place] [address] Care Team Providers Care Staff Sonographer Name Role Phone Unavailable Primary Care Provider Unavailabl e Reason for Visit * Outpatient (Routine) - Authorized Specialty Diagnoses / Procedures Referred By Contac t Referred To Contact Diagnoses Gastroparesis Procedures NM Gastric Emptying with SB with Colonic Transit Time 48 hr Kirk Senior M.D. 200 [place] [address] [facility] Referral ID Status Reason Start Date Expiration Date V isits Requested Visits Authorized [id number] Authorized 01/26/2024 01/25/2025 8 8 Encounter Details Date Type Department Care Team (Latest Contact Info) Description 04/10/2024 7:44 AM CDT - 04/10/2024 11:59 PM T Hospital Encounter Department of Radiology, [facility] in [place], [place] [address] [place] [address] Kirk Senior M.D. [address] [place] [phone] Discharge Disposition: Home or Self Care Social History Tobacco Use Types Packs/Day Years Used Date Smoking Tobacco: Never Smokeless Tobacco: Never Alcohol Use Standard Drinks/Week Comments Yes 0 (1 standard drink = 0.6 oz pur e alcohol) Rarely have a drink. [facility] Utilities Answer Date Recorded In [...] Family Three times a week 04/19/2019 Attends Buddhist Services More than 4 times per year [...] Answer Date Recorded PHQ-2 Score 2 01/11/2019 [facility] Questionnaire Answer Date [...] your living situation today? [facility] 04/05/2024 Education Answer Date Recorded What is the highest level of school you have completed or the highest degree you have received? Master's degree (e.g., MA, MS, Good, MEd, CORRECTIONAL OFFICER LIEUTENANT, REBECCA) 04/19/2019 Sex and Gender Information Value [...] mcg by mouth every morning before breakfast. wwaawn-lmbflvan-grqfudj (Creon) 3,000-9,500-15,[address] capsule Take [...] tablet Take 75 mcg by mouth. 04/29/20232023 nianbx-ilwtwrse-yncsxfu (Creon) 24,000-76,000-120,[address] capsule Take 1 capsule by mouth 3 (three) times a day with meals. 04/16/2024 magnesium 250 mg tablet Take 2 tablets by mouth daily. 05/01/2012 04/16/2024 melatonin 3 mg capsule Take 1 mg by mouth. 03/06/2022 04/16/2024 multivitamin tablet Take 1 tablet by mouth. 03/06/2022 04/16/2024 omega 7-rxe-kjh-fish oil 1,000 mg (120 mg-180 mg) capsule [...] keep you from drinking li 03/14/2016 04/16/2024 loecqcamv-zzwyinezfgh-d iacin 0.05-1-4 % cream Apply topically. 02/21/2023 [...]
--- OUTSIDE RECORDS SUMMARY | 2024-05-14 13:56 | XMS_ITS | Encounter Summary ---
Author Organization [facility] Address [address] [place] [address] Care Team Providers Care Mathematics Education Professor Name Role Phone Unavailable Primary Care Provider Unavailabl e Reason for Visit * Outpatient (Routine) - Authorized Specialty Diagnoses / Procedures Referred By Contac t Referred To Contact Diagnoses Gastroparesis Procedures NM Gastric Emptying with SB with Colonic Transit Time 48 hr Kirk Senior M.D. 200 [place] [address] [facility] Referral ID Status Reason Start Date Expiration Date V isits Requested Visits Authorized [id number] Authorized 01/26/2024 01/25/2025 8 8 Encounter Details Date Type Department Care Team (Latest Contact Info) Description 04/08/2024 2:15 PM CDT - 04/08/2024 11:59 PM CDT Hospital Encounter Department of Radiology, [facility] in [place], [place] [address] [place] [address] Kirk Senior M.D. [address] [place] [phone] Discharge Disposition: Home or Self Care Social History Tobacco Use Types Packs/Day Years Used Date Smoking Tobacco: Never Smokeless Tobacco: Never Alcohol Use Standard Drinks/Week Comments Yes 0 (1 standard drink = 0.6 oz pur e alcohol) Rarely have a drink. [facility] Utilities Answer Date Recorded In the [...] Family Three times a week 04/19/2019 Attends Holiness Services More than 4 times per year [...] PHQ-2 Score 2 01/11/2019 [facility] Questionnaire Answer Date Recorded [...] your living situation today? I have a [facility] place to live 04/05/2024 Education Answer Date Recorded What is the highest level of school you have completed or the highest degree you have received? Master's degree (e.g., MA, MS, Good, MEd, DISTANCE LEARNING TECHNICIAN, REBECCA) 04/19/2019 Sex and Gender Information [...] mcg by mouth every morning before breakfast. navnjl-wxygslpo-fbqtfdw (Creon) 3,000-9,500-15,[address] capsule Take [...] tablet Take 75 mcg by mouth. 04/29/20232023 rwwqef-qlfaluln-xilhnni (Creon) 24,000-76,000-120,[address] capsule Take 1 capsule by mouth 3 (three) times a day with meals. 04/16/2024 magnesium 250 mg tablet Take 2 tablets by mouth daily. 05/01/2012 04/16/2024 melatonin 3 mg capsule Take 1 mg by mouth. 03/06/2022 04/16/2024 multivitamin tablet Take 1 tablet by mouth. 03/06/2022 04/16/2024 omega 7-app-rrm-fish oil 1,000 mg (120 mg-180 mg) capsule [...] keep you from drinking li 03/14/2016 04/16/2024 yfibzlkoi-vtsmqhistfj-q iacin 0.05-1-4 % cream Apply topically. 02/21/2023 [...]
--- OUTSIDE RECORDS SUMMARY | 2024-05-14 13:56 | XMS_ITS | Encounter Summary ---
Author Organization [facility] Address [address] [place] [address] Care Team Providers Care Tone Regulator Name Role Phone Unavailable Primary Care Provider Unavailabl e Reason for Visit * Outpatient (Routine) - Authorized Specialty Diagnoses / Procedures Referred By Contac t Referred To Contact Diagnoses Gastroparesis Procedures NM Gastric Emptying with SB with Colonic Transit Time 48 hr Kirk Senior M.D. 200 [place] [address] [facility] Referral ID Status Reason Start Date Expiration Date V isits Requested Visits Authorized [id number] Authorized 01/26/2024 01/25/2025 8 8 Encounter Details Date Type Department Care Team (Latest Contact Info) Description 04/08/2024 8:10 AM CDT - 04/08/2024 9:12 AM T Hospital Encounter Department of Radiology, [facility] in [place], [place] [address] [place] [address] Kirk Senior M.D. [address] [place] [phone] Discharge Disposition: Home or Self Care Social History Tobacco Use Types Packs/Day Years Used Date Smoking Tobacco: Never Smokeless Tobacco: Never Alcohol Use Standard Drinks/Week Comments Yes 0 (1 standard drink = 0.6 oz pur e alcohol) Rarely have a drink. [facility] Utilities Answer Date Recorded In [...] Family Three times a week 04/19/2019 Attends Anabaptist Services More than 4 times per year [...] Answer Date Recorded PHQ-2 Score 2 01/11/2019 [facility] - Occupational Stress Questionnaire Answer Date [...] your living situation today? I have a [facility] place to live 04/05/2024 Education Answer Date Recorded What is the highest level of school you have completed or the highest degree you have received? Master's degree (e.g., MA, MS, Good, MEd, PERFORMANCE IMPROVEMENT COORDINATOR, REBECCA) 04/19/2019 Sex and Gender Information Value [...] mcg by mouth every morning before breakfast. nfdcut-yptrgvew-zxrvmsq (Creon) 3,000-9,500-15,[address] capsule Take [...] tablet Take 75 mcg by mouth. 04/29/20232023 xfcdlq-ttotowlw-qbhmvxm (Creon) 24,000-76,000-120,[address] capsule Take 1 capsule by mouth 3 (three) times a day with meals. 04/16/2024 magnesium 250 mg tablet Take 2 tablets by mouth daily. 05/01/2012 04/16/2024 melatonin 3 mg capsule Take 1 mg by mouth. 03/06/2022 04/16/2024 multivitamin tablet Take 1 tablet by mouth. 03/06/2022 04/16/2024 omega 6-qcx-xyi-fish oil 1,000 mg (120 mg-180 mg) capsule [...] keep you from drinking li 03/14/2016 04/16/2024 vpufuysuz-wifbvklxtvc-u iacin 0.05-1-4 % cream Apply topically. 02/21/2023 0 04/16/2024 documented as of this encounter Plan of Treatment Not on file documented as of this encounter Procedures Procedure Name Priority Date/Time Associated Diagnosis Comments NM GASTRIC EMPTYING WITH SB WITH COLONIC TRANSIT TIME 48 HR RAD - Routine (most inpatients and all outpatients) 04/10/2024 8:31 AM CDT Gastroparesis documented in this encounter Visit Diagnoses Not on filedocumented in this encounter Administered Medications Inactive Administered Medications - up to 3 most recent administrations Medication Order MAR Action Action Date Dose Rate Site indium In 111 charcoal capsule (In-111 Charcoal Capsule) 0.08-0.12 millicurie, oral, Once, On Sat04/08/24 at 0845, For 1 dose, Imaging Protocol Orders Given 04/08/2024 8:18 AM CDT 0.103 millicuries technetium Tc 99m Sulfur Colloid solution (Tc-99m Sulfur Colloid) 0.27-1.1 millicurie, oral, Once, On Sat04/08/24 at 0845, For 1 dose, Imaging Protocol Orders Given 04/08/2024 8:18 AM CDT 1.1 millicuries documented in this encounter
--- OUTSIDE RECORDS SUMMARY | 2024-05-14 13:56 | XMS_ITS | Encounter Summary ---
Author Organization [facility] Address [address] [place] [address] Care Team Providers Care Aids Nurse Name Role Phone Unavailable Primary Care Provider Unavailabl e Encounter Details Date Type Department Care Team (Latest Contact Info) Description 02/14/2024 Clinical Communication Division of Gastroenterology in [place], [place] [address] [place] [address] Javier White M.B.B.S. [address] [place] [address] Social History Tobacco Use Types Packs/Day Years [...] Family Three times a week 04/19/2019 Attends Druze Services More than 4 times per year [...] Answer Date Recorded PHQ-2 Score 2 01/11/2019 [facility] [place] of Occupat ional Health - Occupational Stress [...] Master's degree (e.g., MA, MS, Good, MEd, HATCH TENDER, REBECCA) 04/19/2019 Sex and Gender Information Value Date Recorded Sex Assigned at Female 05/17/2018 6:44 PM CDT Gender Identity Not on file Sexual Orientation Not on file documented as of this encounter Plan of Treatment Not on file documented as of this encounter Visit Diagnoses Diagnosis Gastroparesis- Primary documented in this encounter
--- OUTSIDE RECORDS SUMMARY | 2024-05-14 13:56 | XMS_ITS | Encounter Summary ---
Author Organization [facility] Address [address] [place] [address] Care Team Providers Care Brace Maker Name Role Phone Unavailable Primary Care Provider Unavailabl e Reason for Referral * Outpatient (Routine) - Authorized Specialty Diagnoses / Procedures Referred By Pineda stoner Referred To Contact Diagnoses Gastroparesis Procedures NM Gastric Emptying with SB with Colonic Transit Time 48 hr Kirk Senior M.D. 200 [place] [address] [facility] Referral ID Status Reason Start Date Expiration Date V isits Requested Visits Authorized [id number] Authorized 01/26/2024 01/25/2025 8 8 Reason for Visit * Outpatient (Routine) - Authorized Specialty Diagnoses / Procedures Referred By Pineda stoner Referred To Contact Diagnoses Gastroparesis Procedures NM Gastric Emptying with SB with Colonic Transit Time 48 hr Kirk Senior M.D. 200 [place] [address] [facility] Referral ID Status Reason Start Date Expiration Date V isits Requested Visits Authorized [id number] Authorized 01/26/2024 01/25/2025 8 8 Encounter Details Date Type Department Care Team (Latest Contact Info) Description 04/08/2024 6:55 AM CDT - 04/08/2024 8:09 AM CDT Hospital Encounter Department of Radiology, [facility], in [place], [place] [address] [place] [address] Kirk Senior M.D. [address] [place] [address] Gastroparesis Discharge Disposition: Home or Self Care Social History Tobacco Use Types Packs/Day Years Used Date Smoking Tobacco: Never Smokeless Tobacco: Never Alcohol Use Standard Drinks/Week Comments Yes 0 (1 standard drink = 0.6 oz pur e alcohol) Rarely have a drink. [facility] Utilities Answer Date Recorded In [...] Family Three times a week 04/19/2019 Attends Pentecostalism Services More than 4 times per year [...] Answer Date Recorded PHQ-2 Score 2 01/11/2019 [facility] of Occupat ional Health - Occupational Stress [...] your living situation today? I have a [facility] place to live 04/05/2024 Education Answer Date Recorded What is the highest level of school you have completed or the highest degree you have received? Master's degree (e.g., MA, MS, Good, MEd, STAFF VETERINARIAN, REBECCA) 04/19/2019 Sex and Gender Information Value [...] mcg by mouth every morning before breakfast. ddcces-yaaczqli-bcpgrgz (Creon) 3,000-9,500-15,[address] capsule Take [...] tablet Take 75 mcg by mouth. 04/29/20232023 shtftq-dnyrqnoq-mrsgpmj (Creon) 24,000-76,000-120,[address] capsule Take 1 capsule by mouth 3 (three) times a day with meals. 04/16/2024 magnesium 250 mg tablet Take 2 tablets by mouth daily. 05/01/2012 04/16/2024 melatonin 3 mg capsule Take 1 mg by mouth. 03/06/2022 04/16/2024 multivitamin tablet Take 1 tablet by mouth. 03/06/2022 04/16/2024 omega 9-mzm-hpo-fish oil 1,000 mg (120 mg-180 mg) capsule [...] keep you from drinking li 03/14/2016 04/16/2024 pvcquxgqf-uywzshvvtnz-z iacin 0.05-1-4 % cream Apply topically. 02/21/2023 [...] from 24 to 48 hours. Kirk LE[place] PROCEDURES documented in this encounter Visit Diagnoses Diagnosis Gastroparesis documented in this encounter
--- OUTSIDE RECORDS SUMMARY | 2024-05-14 13:56 | XMS_ITS | Encounter Summary ---
Author Organization [facility] Address [address] [place] [address] Care Team Providers Care Audit Clerk Name Role Phone Unavailable Primary Care Provider Unavailabl e Reason for Visit * Outpatient (Routine) - Authorized Specialty Diagnoses / Procedures Referred By Contac t Referred To Contact Diagnoses Gastroparesis Procedures NM Gastric Emptying with SB with Colonic Transit Time 48 hr Kirk Senior M.D. 200 [place] [address] [facility] Referral ID Status Reason Start Date Expiration Date V isits Requested Visits Authorized [id number] Authorized 01/26/2024 01/25/2025 8 8 Encounter Details Date Type Department Care Team (Latest Contact Info) Description 04/08/2024 9:13 AM CDT - 04/08/2024 10:11 AM T Hospital Encounter Department of Radiology, [facility] in [place], [place] [address] [place] [address] Kirk Senior M.D. [address] [place] [phone] Discharge Disposition: Home or Self Care Social History Tobacco Use Types Packs/Day Years Used Date Smoking Tobacco: Never Smokeless Tobacco: Never Alcohol Use Standard Drinks/Week Comments Yes 0 (1 standard drink = 0.6 oz pur e alcohol) Rarely have a drink. [facility] Utilities Answer Date Recorded In the [...] Family Three times a week 04/19/2019 Attends Yazidi Services More than 4 times per year [...] Answer Date Recorded PHQ-2 Score 2 01/11/2019 [facility] Questionnaire Answer Date [...] Master's degree (e.g., MA, MS, Good, MEd, METAL WIRE COATING OPERATOR, REBECCA) 04/19/2019 Sex and Gender Information [...] mcg by mouth every morning before breakfast. qbgtxe-vydmwgru-yndrjjl (Creon) 3,000-9,500-15,[address] capsule Take [...] tablet Take 75 mcg by mouth. 04/29/20232023 fyoupl-mwcqurkd-roxdooh (Creon) 24,000-76,000-120,[address] capsule Take 1 capsule by mouth 3 (three) times a day with meals. 04/16/2024 magnesium 250 mg tablet Take 2 tablets by mouth daily. 05/01/2012 04/16/2024 melatonin 3 mg capsule Take 1 mg by mouth. 03/06/2022 04/16/2024 multivitamin tablet Take 1 tablet by mouth. 03/06/2022 04/16/2024 omega 1-ovu-cuv-fish oil 1,000 mg (120 mg-180 mg) capsule [...] keep you from drinking li 03/14/2016 04/16/2024 tbwmtjrde-kchfdiwmybh-m iacin 0.05-1-4 % cream Apply topically. 02/21/2023 [...]
--- OUTSIDE RECORDS SUMMARY | 2024-05-14 13:56 | XMS_ITS | Encounter Summary ---
Author Organization [facility] Address [address] [place] [address] Care Team Providers Care Cloth Checker Name Role Phone Unavailable Primary Care Provider Unavailabl e Reason for Referral * Outpatient (Routine) - Closed Specialty Diagnoses / Procedures Referred By Pineda stoner Referred To Contact Diagnoses Gastroparesis Diarrhea Anemia Iron Deficiency Constipation Procedures Anorectal Manometry Yvette Moncada M.D., M.P.H. [address] [place] [phone] [facility] Referral ID Status Reason Start Date Expiration Date Visits Re quested Visits Authorized [id number] Closed 04/07/2024 04/07/2025 1 1 Reason for Visit * Outpatient (Routine) - Closed Specialty Diagnoses / Procedures Referred By Pineda stoner Referred To Contact Diagnoses Gastroparesis Diarrhea Anemia Iron Deficiency Constipation Procedures Anorectal Manometry Yvette Moncada M.D., M.P.H. [address] [place] [phone] [facility] Referral ID Status Reason Start Date Expiration Date Visits Re quested Visits Authorized [id number] Closed 04/07/2024 04/07/2025 1 1 Encounter Details Date Type Department Care Team (Latest Contact Info) Description 04/16/2024 8:50 AM CDT - 04/16/2024 11:59 PM CDT Hospital Encounter Division of Gastroenterology in [place], [place] [address] [place] [address] Yvette Moncada M.D., M.P.H. [address] [place] [address] Gastroparesis; Diarrhea; Anemia Iron Deficiency; Constipation Discharge Disposition: Home or Self Care Social History Tobacco Use Types Packs/Day Years Used Date Smoking Tobacco: Never Smokeless Tobacco: Never Alcohol Use Standard Drinks/Week Comments Yes 0 (1 standard drink = 0.6 oz pur e alcohol) Rarely have a drink. [facility] Utilities Answer Date Recorded In the past 12 months has e electric, gas, oil, or water company threatened to shut off services in your home? No 04/05/2024 Social Connection and Isolat ion Panel [NHANES] Answer Date Recorded Frequency of Communication w ith Friends and Family More than three times a week 04/19/2019 Frequency of Social Gatherin gs with Friends and Family Three times a week 04/19/2019 Attends Episcopalian Services More than 4 times per year [...] Date Recorded PHQ-2 Score 2 01/11/2019 [facility] of Occupat ional Health - Occupational [...] your living situation today? I have a [facility] place to live 04/05/2024 Education Answer Date Recorded What is the highest level of school you have completed or the highest degree you have received? Master's degree (e.g., MA, MS, Good, MEd, RECEIVABLE MANAGER, REBECCA) 04/19/2019 Sex and Gender Information [...] mcg by mouth every morning before breakfast. zhdmtk-wjollvhz-lwxnduz (Creon) 3,000-9,500-15,[address] capsule Take by mouth. 01/24/2024 magnesium 250 mg tablet Take 1 tablet by mouth 2 (two) times a day. melatonin 1 mg tablet Take 1 mg [...] Instructions. See attached for detailed directions. 03/26/2024 documented as of this encounter Plan of Treatment Not on file documented as of this encounter Procedures Procedure Name Priority Date/Time Associated Diagnosis Comments ANORECTAL MANOMETRY Routine 04/17/2024 6:46 AM CD T Gastroparesis Diarrhea Anemia Iron Deficiency Constipation documented in this encounter Results * Anorectal Manometry (04/17/2024 6:46 AM CDT) Yvette Moncada M.D., M.P.H. GI PROCEDURE ORDERABLES MMODAL NA documented in this encounter Visit Diagnoses Diagnosis Gastroparesis Diarrhea Anemia Iron Deficiency Constipation documented in this encounter
--- OUTSIDE RECORDS SUMMARY | 2024-05-14 13:56 | XMS_ITS | Encounter Summary ---
Author Organization [facility] Address [address] [place] [address] Care Team Providers Care Pediatric Psychiatrist Name Role Phone Unavailable Primary Care Provider Unavailabl e Reason for Visit * Outpatient (Routine) - Authorized Specialty Diagnoses / Procedures Referred By Contac t Referred To Contact Diagnoses Gastroparesis Procedures NM Gastric Emptying with SB with Colonic Transit Time 48 hr iKrk Senior M.D. 200 [place] [address] [facility] Referral ID Status Reason Start Date Expiration Date V isits Requested Visits Authorized [id number] Authorized 01/26/2024 01/25/2025 8 8 Encounter Details Date Type Department Care Team (Latest Contact Info) Description 04/09/2024 6:25 AM CDT - 04/09/2024 11:59 PM T Hospital Encounter Department of Radiology, [facility] [place], [place] [address] [place] [address] Kirk Senior M.D. [address] [place] [phone] Discharge Disposition: Home or Self Care Social History Tobacco Use Types Packs/Day Years Used Date Smoking Tobacco: Never Smokeless Tobacco: Never Alcohol Use Standard Drinks/Week Comments Yes 0 (1 standard drink = 0.6 oz pur e alcohol) Rarely have a drink. [facility] Utilities Answer Date Recorded In the [...] Family Three times a week 04/19/2019 Attends Congregation Services More than 4 times per year [...] Answer Date Recorded PHQ-2 Score 2 01/11/2019 [facility] Answer Date [...] your living situation today? I have a [facility] place to live 04/05/2024 Education Answer Date Recorded What is the highest level of school you have completed or the highest degree you have received? Master's degree (e.g., MA, MS, Good, MEd, CONSTRUCTION ASSISTANT, REBECCA) 04/19/2019 Sex and Gender Information Value [...] mcg by mouth every morning before breakfast. khnrwz-nthbxtab-csevuie (Creon) 3,000-9,500-15,[address] capsule Take [...] tablet Take 75 mcg by mouth. 04/29/20232023 zxovsn-wsnyyllb-pzxlumu (Creon) 24,000-76,000-120,[address] capsule Take 1 capsule by mouth 3 (three) times a day with meals. 04/16/2024 magnesium 250 mg tablet Take 2 tablets by mouth daily. 05/01/2012 04/16/2024 melatonin 3 mg capsule Take 1 mg by mouth. 03/06/2022 04/16/2024 multivitamin tablet Take 1 tablet by mouth. 03/06/2022 04/16/2024 omega 5-kfd-vnz-fish oil 1,000 mg (120 mg-180 mg) capsule [...] keep you from drinking li 03/14/2016 04/16/2024 kckgtfzgf-gqanagvojmk-w iacin 0.05-1-4 % cream Apply topically. 02/21/2023 [...]
--- OUTSIDE RECORDS SUMMARY | 2024-05-14 13:57 | XMS_ITS | Encounter Summary ---
Author Organization [place] Address [facility] [place] [address] Care Team Providers Care Casting Supervisor Name Role Phone Carmela Zee MD Primary Care Provider [phone] Darnell Gray MD, Justina Unavailable [phone] Carmela Zee MD Unavailable [phone] Heather Doran PA-C Unavailable [phone] Darnell Gray MD, Justina Unavailable [phone] Josseline Garcia RN Unavailable Unavailable Encounter Details Date Type Department Care Team (Late st Contact Info) Description 11/19/2022 Orders Only [facility] [place] [phone] Cecil Gaytan MD [address] [place] [address] Encounter for laboratory testing for COVID-19 virus Social History Tobacco Use Types Packs/Day Years Used Date Smoking Tobacco: Never Smokeless Tobacco: Never Alcohol Use Standard Drinks/Week Comments No 0 (1 standard drink = 0.6 oz pur e alcohol) PHQ-2 Answer Date Recorded PHQ-2 Score 0 11/14/2022 Sex and Gender Information Value Date Recorded Sex Assigned at Not on file Gender Identity Not on file Sexual Orientation Not on file COVID-19 Exposure Response Date Recorded In the last 10 days, have yo u been in contact with someone who was confirmed or suspected to have Coronavirus/COVID-19? No / Unsure 11/19/2022 2:00 PM CDT documented as of this encounter Plan of Treatment Not on file documented as of this encounter Visit Diagnoses Diagnosis Encounter for laboratory testing for COVID-19 virus documented in this encounter Additional Health Concerns Assessment Noted Time PHQ-9 Depression Total Score: 3 02/27/20 22 3:44 PM CDT documented as of this encounter Care Teams Casting Supervisor Relationship Specialty Start Date End Date Carmela Zee MD [address] [address] PCP - General 03/14/09 Justina Patrick MD [address] [place] [address] [id number] Assigned Surgical Provider 05/27/20 11/30/22 Carmela Zee MD [address] [id number] Assigned PCP 11/20/20 Heather Doran PA-C [address] [place] [address] [address] [place], [place] 100575 Assigned Surgical Provider 12/01/22 12/07/22 Justina Patrick MD [address] [place] [address] [id number] Assigned Surgical Provider 12/08/22 Josseline Garcia, RN Specialty Food And Drug Research Scientist Thoracic Surgery 09/16/23 documented as of this encounter
--- OUTSIDE RECORDS SUMMARY | 2024-05-14 13:57 | XMS_ITS | Encounter Summary ---
Author Organization [place] Address [address] [place] [address]. [place] [address] Care Team Providers Care Forest Fire Prevention Manager Name Role Phone Carmela Zee MD Primary Care Provider [phone] Carmela Zee MD Unavailable [phone] Darnell Gray MD, Justina Unavailable [phone] Josseline Garcia RN Unavailable Unavailable Encounter Details Date Type Department Care Team (Late st Contact Info) Description 09/16/2023 MyC Medical Advice [facility] [address] [place] [address] Josseline Garcia, RN Social History Tobacco Use Types Packs/Day Years Used Date Smoking Tobacco: Never Smokeless Tobacco: Never Alcohol Use Standard Drinks/Week Comments No 0 (1 standard drink = 0.6 oz pur e alcohol) PHQ-2 Answer Date Recorded PHQ-2 Score 0 01/14/2023 Adolescent Education Answer Date Record ed Getting School Help Needed Not on file 04/27 Sex and Gender Information Value Date Recorded Sex Assigned at Not on file Gender Identity Not on file Sexual Orientation Not on file documented as of this encounter Plan of Treatment Not on file documented as of this encounter Visit Diagnoses Not on filedocumented in this encounter Additional Health Concerns Assessment Noted Time PHQ-9 Depression Total Score: 3 02/27/20 22 3:44 PM CDT documented as of this encounter Care Teams Forest Fire Prevention Manager Relationship Specialty Start Date End Date Carmela Zee MD [address] [address] PCP - General 03/14/09 Carmela Zee MD [address] 848117 Assigned PCP 11/20/20 Justina Patrick MD [address] [place] [address] [phone] Assigned Surgical Provider 12/08/22 Josseline Garcia, RN Specialty Communications Department Head Thoracic Surgery 09/16/23 documented as of this encounter
--- OUTSIDE RECORDS SUMMARY | 2024-05-14 13:57 | XMS_ITS | Encounter Summary ---
Author Organization [place] Address Critical access hospital0 [facility] [address] Care Team Providers Care Toilet Products Molder Name Role Phone Carmela Zee MD Primary Care Provider [phone] Carmela Zee MD Unavailable Darnell Gray MD, Justina Unavailable [phone] Josseline Garcia RN Unavailable Unavailable Encounter Details Date Type Department Care Team (Late st Contact Info) Description 04/02/2023 MyC Medical Advice [facility] 303 [facility] [address] [place] [address] Ade Shaikh CMA Social History Tobacco Use Types Packs/Day Years Used Date Smoking Tobacco: Never Smokeless Tobacco: Never Alcohol Use Standard Drinks/Week Comments No 0 (1 standard drink = 0.6 oz pur e alcohol) PHQ-2 Answer Date Recorded PHQ-2 Score 0 01/14/2023 Sex and Gender Information Value Date Recorded [...] documented as of this encounter Care Teams Toilet Products Molder Relationship Specialty Start Date End Date Carmela Zee MD [address] [facility] 200 [place] [address] PCP - General 03/14/09 Carmela Zee MD [address] [facility] 200 [place] [address] Assigned PCP 11/20/20 Justina Patrick MD [address] [place] [address] [id number] Assigned Surgical Provider 12/08/22 Josseline Garcia, RN Specialty Admissions Gate Attendant Thoracic Surgery 09/16/23 documented as of this encounter
--- OUTSIDE RECORDS SUMMARY | 2024-05-14 13:57 | XMS_ITS | Encounter Summary ---
Author Organization [place] Address [facility] [place] [address] Care Team Providers Care County Director Welfare Name Role Phone Carmela Zee MD Primary Care Provider [phone] Carmela Zee MD Unavailable [phone] Darnell Gray MD, Madhuri Unavailable [phone] Josseline Garcia RN Unavailable Unavailable Encounter Details Date Type Department Care Team (Late st Contact Info) Description 01/11/2023 MyC Medical Advice [facility] [address] [place] [address] Justina Patrick MD [address] [place] [address] Social History Tobacco Use Types Packs/Day Years [...] suspected to have Coronavirus/COVID-19? No / Unsure 01/14/2023 12:44 PM CDT documented as of this encounter Plan of Treatment Not on file documented as of this encounter Visit Diagnoses Not on filedocumented in this encounter Additional Health Concerns Assessment Noted Time PHQ-9 Depression Total Score: 3 02/27/20 22 3:44 PM CDT documented as of this encounter Care Teams County Director Welfare Relationship Specialty Start Date End Date Carmela Zee MD [address] [employer] [address] [address] PCP - General 03/14/09 Carmela Zee MD [address] [address] Assigned PCP 11/20/20 Justina Patrick MD [address] [place] [address] Assigned Surgical Provider 12/08/22 Josseline Garcia, RN Specialty Lpn Home Health Thoracic Surgery 09/16/23 documented as of this encounter
--- OUTSIDE RECORDS SUMMARY | 2024-05-14 13:57 | XMS_ITS | Encounter Summary ---
Author Organization [place] Address [facility] [place] [address] Care Team Providers Care Manager Hydraulic Name Role Phone Carmela Zee MD Primary Care Provider Carmela Zee MD Unavailable [phone] Darnell Gray MD, Justina Unavailable [phone] Josseline Garcia RN Unavailable Unavailable Encounter Details Date Type Department Care Team (Late st Contact Info) Description 02/13/[address] [facility] 303 [facility] [address] [place] [address] Ceci Obregon Social History Tobacco Use Types Packs/Day Years [...] suspected to have Coronavirus/COVID-19? No / Unsure 02/11/2023 11:27 AM CDT documented as of this encounter Plan of Treatment Not on file documented as of this encounter Visit Diagnoses Not on filedocumented in this encounter Additional Health Concerns Assessment Noted Time PHQ-9 Depression Total Score: 3 02/27/20 22 3:44 PM CDT documented as of this encounter Care Teams Manager Hydraulic Relationship Specialty Start Date End Date Carmela Zee MD [address] [place] [address] PCP - General 03/14/09 Carmela Zee MD [address] [place], [place] [address]277 Assigned PCP 11/20/20 Justina Patrick MD [address] [place] [address] Assigned Surgical Provider 12/08/22 Josseline Garcia, RN Specialty Roof Promenade Tile Setter Thoracic Surgery 09/16/23 documented as of this encounter
--- OUTSIDE RECORDS SUMMARY | 2024-05-14 13:57 | XMS_ITS | Encounter Summary ---
Author Organization [place] Address [address] [place] [address]. [place] [address] Care Team Providers Care Lasting Machine Operator Name Role Phone Carmela Zee MD Primary Care Provider [phone] Darnell Gray MD, Justina Unavailable [phone] Carmela Zee MD Unavailable Heather Doran PA-C Unavailable [phone] Darnell Gray MD, Justina Unavailable [phone] Josseline Garcia RN Unavailable Unavailable Encounter Details Date Type Department Care Team (Late st Contact Info) Description 11/07/2022 [facility] Medical Advice [facility] [address] [place] [address] Josseline Garcia, RN Social History Tobacco Use Types Packs/Day Years Used Date Smoking Tobacco: Never Smokeless Tobacco: Never Alcohol Use Standard Drinks/Week Comments No 0 (1 standard drink = 0.6 oz pur e alcohol) PHQ-2 Answer Date Recorded PHQ-2 Score 0 02/26/2022 Sex and Gender Information Value Date Recorded [...] documented as of this encounter Care Teams Lasting Machine Operator Relationship Specialty Start Date End Date Carmela Zee MD [address] 200 [place] [address] PCP - General 03/14/09 Justina Patrick MD [address] [place] [address] Assigned Surgical Provider 05/27/20 11/30/22 Carmela Zee MD [address] [facility] 200 [place] [address] Assigned PCP 11/20/20 Heather Doran PA-C [address] [place] [address] [address] [place] [address] Assigned Surgical Provider 12/01/22 12/07/22 Justina Patrick MD [address] [place] [address] Assigned Surgical Provider 12/08/22 Josseline Garcia, RN Specialty Events Traffic Controller Thoracic Surgery 09/16/23 documented as of this encounter
--- OUTSIDE RECORDS SUMMARY | 2024-05-14 13:57 | XMS_ITS | Encounter Summary ---
Author Organization [place] Address [facility] [place] [address] Care Team Providers Care Property Insurance Claims Examiner Name Role Phone Carmela Zee MD Primary Care Provider [phone] Carmela Zee MD Unavailable Darnell Gray MD, [facility] Unavailable [phone] Josseline Garcia RN Unavailable Unavailable Reason for Visit * Reason Onset Date Comments MyChart Communication 02/12/2023 Encounter Details Date Type Department Care Team (Late st Contact Info) Description 02/12/2023 MyC Medical Advice [facility] [address] [place] [address] Carmela Zee MD [address] [place] [address] MyChart Communication Social History Tobacco Use Types Packs/Day Years [...] Recorded In the last 10 days, have jyothi u been in contact with someone who was confirmed or suspected to have Coronavirus/COVID-19? No / Unsure 02/11/2023 11:27 AM CDT documented as of this encounter Miscellaneous Notes * Telephone Encounter - Ely Hamilton RN - 02/12/2023 4:47 PM CDT My chart message sent by patient. My chart message sent to patient. documented in this encounter Plan of Treatment Not on file documented as of this encounter Visit Diagnoses Not on filedocumented in this encounter Additional Health Concerns Assessment Noted Time PHQ-9 Depression Total Score: 3 02/27/20 22 3:44 PM CDT documented as of this encounter Care Teams Property Insurance Claims Examiner Relationship Specialty Start Date End Date Carmela Zee MD [address] [address] PCP - General 03/14/09 Carmela Zee MD [address] [address] Assigned PCP 11/20/20 Justina Patrick MD [address] [place] [address] Assigned Surgical Provider 12/08/22 Josseline Garcia RN Specialty Radiology Physician Thoracic Surgery 09/16/23 documented as of this encounter
--- OUTSIDE RECORDS SUMMARY | 2024-05-14 13:57 | XMS_ITS | Clinical Summary ---
Author Organization [place] Address [facility] [place] [address] Care Team Providers Care Automotive Title Clerk Name Role Phone Carmela Zee MD Primary Care Provider Carmela Zee MD Unavailable Darnell Gray MD, Justina Unavailable [phone] Josseline Garcia RN Unavailable Unavailable Allergies Active Allergy Reactions Criticality Noted Date Comments Ciprofloxacin Low 07/02/2018 Levofloxacin Low 03/10/2015 Could not sleep & tendonitis of arms. Moxifloxacin Low 07/02/2018 Medications Medication Sig Dispensed Refills Start Date End Date Status MULTIVITAMIN OR Take 1 tablet by mouth every evening Active FISH OIL 1000 MG PO CAPS Take 2,000 mg by mouth every evening Active timolol maleate 0.5 % (DAILY) SOLN Place 1 drop into both eyes 2 times daily 02/23/2014 Active melatonin 1 MG TABS Take 1 tablet (1 mg) by mouth nightly as needed for sleep 03/14/2016 Active azelastine (ASTELIN) 0.1 % nasal sprayIndications:VMR (vasomotor rhinitis) [place] 2 sprays in nostril 2 times daily 3 Bottle 3 03/14/2016 Active Additional Information Patient not taking.Reported on 03/07/2023 tretinoin (RETIN-A) 0.05 % external cream Apply topically At Bedtime 10/30/2022 Active famotidine (PEPCID) 40 MG tablet Take 40 mg by mouth 2 times daily Active calcium carbonate (OS-BRITTANY) 1500 (600 Ca) MG tablet Take 600 mg by mouth 2 times daily (with meals) Active magnesium 250 MG tablet Take 1 tablet by mouth 2 times daily Active acetaminophen (TYLENOL) 325 MG tabletIndications:Hia sahara hernia 2 tablets (650 mg) by Per G Tube route every 4 hours as needed for other (For optimal non-opioid multimodal pain management to improve pain control.) 01/22/2023 Active Additional Information Patient not taking.Reported on 02/11/2023 methocarbamol (ROBAXIN) 500 MG tabletIndications:Hia sahara hernia 1 tablet (500 mg) by Per G Tube route every 6 hours as needed for muscle spasms 20 tablet 01/22/2023 Active Additional Information Patient not taking.Reported on 03/07/2023 oxyCODONE (ROXICODONE) 5 MG tabletIndications:Hia sahara hernia 1 tablet (5 mg) by Per G Tube route every 4 hours as needed for moderate pain 40 tablet 01/22/2023 Active Additional Information Patient not taking.Reported on 02/11/2023 polyethylene glycol (MIRALAX) 17 g packetIndications:Hia sahara hernia Take 17 g by mouth 2 times daily 7 packet 01/22/2023 Active Additional Information Patient not taking.Reported on 02/11/2023 senna-docusate (SENOKOT-S/PERICOLACE ) 8.6-50 MG tabletIndications:Hia sahara hernia Take 2 tablets by mouth 2 times daily 14 tablet 01/22/2023 Active Additional Information Patient not taking.Reported on 02/11/2023 ondansetron (ZOFRAN ODT) 4 MG ODT tabIndications:Gastro esophageal reflux disease without esophagitis Take 1 tablet (4 mg) by mouth every 6 hours as needed for nausea 20 tablet 01/22/2023 Active Additional Information Patient not taking.Reported on 02/11/2023 simvastatin (ZOCOR) 20 MG tabletIndications:Hyp ercholesteremia TAKE 1 TABLET BY MOUTH EVERYDAY AT BEDTIME 90 tablet 01/28/2023 Active IBANdronate (BONIVA) 150 MG tabletIndications:Age -related osteoporosis without current pathological fracture TAKE 1 TABLET BY MOUTH EVERY 30 DAYS 3 tablet 2 02/19/2023 Active ALPRAZolam (XANAX) 0.25 MG tabletIndications:Dys thymia TAKE 1 TABLET BY MOUTH NIGHTLY NEEDED FOR ANXIETY. 30 tablet 02/22/2023 Active traZODone (DESYREL) 50 MG tabletIndications:Rina mis insomnia TAKE 1/2 TO 1 TABLET BY MOUTH AT BEDTIME 90 tablet 02/21/2023 Active levothyroxine (SYNTHROID/LEVOTHROID ) 75 MCG tabletIndications:Acq uired hypothyroidism Take 1 tablet (75 mcg) by mouth every morning 90 tablet 04/01/2023 Active Active Problems Patient Care Coordination No te Formatting of this note migh t be different from the original. [email or web address] Problem Noted Date Diagnosed Date Large hiatal hernia 01/18/2023 Hiatal hernia 05/21/2018 Overview: Added automatically from request for surgery [id number] Added automatically from request for surgery [id number] Overactive bladder 12/17/2017 Chronic interstitial cystitis 12/17/2017 Gastroesophageal reflux disease without esophagi tis 08/24/2015 Insomnia, unspecified insomnia 08/02/2015 HYPERLIPIDEMIA LDL GOAL <130 06/04/2010 Eye pressure 08/05/2008 Spondylosis of cervical spine 11/29/2004 Hypercholesteremia Dysthymia Osteopenia IBS (irritable bowel syndrome) Resolved Problems Problem Noted Date Diagnosed Date Resolved Date Bilateral shoulder pain 11/18/201412/04 Obstructive sleep apnea 06/20/2011 12/0 12/2018 Advanced directives, counseling/discussion 02/16/2011 01/20/2024 Overview: Patient states has Advance Directive and will bring in a copy to clinic. Patient states has Advance Directive and will bring in a copy to clinic. Hypothyroidism 03/14/2016 Central sleep apnea 06/20/20 11 Recurrent UTI 07/09/2019 Immunizations Name Administration Dates Next Due COVID-19 MONOVALENT 12+ (Pfizer) 09/22/2020,08/06 Flu, Unspecified 05/21/2018 Influenza (High Dose) Trival ent,PF (Fluzone) 05/06/2019,05/16/2018,05/30/2017,2015,05/10/2015,06/02/2011 Influenza (IIV3) PF 05/01/2010,04/30/2009 Pneumo Conj 13-V (2010&after) 07/19/2015 Pneumococcal 23 valent 02/16/2011 TD,PF 7+ (Tenivac) 09/16/2011 TDAP (Adacel,Boostrix) 02/26/2022,09/05/2011 Zoster recombinant adjuvante d (SHINGRIX) 06/19/2019 Zoster vaccine, live 08/04/2016 Family History Medical History Relation Comments Diabetes Brother and CVA and bypa ss Cerebrovascular Disease Father 62yo Diabetes Mother 92yo an d heart Family History Negative Son 1 Family History Negative Son 2 Anesthesia Reaction No family hx of Breast Cancer No family hx of Ovarian Cancer No family hx of Venous thrombosis No family hx of Relation Status Comments Brother Father Mother Son 1 Son 2 Social History Tobacco Use Types Packs/Day Years Used Date Smoking Tobacco: Never Smokeless Tobacco: Never Tobacco Cessation:Counseling Given: Not Answered Alcohol Use Standard Drinks/Week Comments No 0 [...] Sign Reading Time Taken Comments Blood Pressure 178/79 02/11/2023 12:00 PM CDT Pulse 84 02/11/2023 12:00 PM CDT Temperature 36.7 ??C (98.1 ??F) 02/11/2023 12:00 PM C DT Respiratory Rate 16 02/11/2023 12:00 PM CDT Oxygen Saturation 98% 02/11/2023 12:00 PM CDT Inhaled Oxygen Concentration - - Weight 60.8 kg (134 lb) 03/07/2023 10:13 AM CDT Height 157.5 cm (5' 2) 03/07/2023 10:13 AM CDT Body Mass Index 24.51 03/07/2023 10:13 AM CDT Plan of Treatment Health Maintenance Due Date Last Done Comments RSV VACCINE (1 - 1-dose 75+ series) 2020 PHQ-9 08/29/2022 02/26/2022, 11/03, 11/27/2016, Additional history exists ANNUAL REVIEW OF HM ORDERS 02/26/2023 02/26/2022 FALL RISK ASSESSMENT 02/26/2023 02/26/2022, 07/09/2019, 03/14/2016, Additional history exists MEDICARE ANNUAL WELLNESS VISIT 02/26/2023 02/26/2022, 11/14/2020, 03/14/2016, Additional history exists TSH W/FREE T4 REFLEX 02/26/2023 02/26/2022, 11/14/2020, 03/14/2016, Additional history exists DEXA 02/02/2024 02/01/2021, 04/05, 04/14/2014, Additional history exists COVID-19 Vaccine ( season) 2024 05/25/2023, 01/08/2023, 05/22/2022, Additional history exists INFLUENZA VACCINE (#1) 2024 , 06/01/2022, 05/10/2021, Additional history exists GLUCOSE 01/21/2026 01/21/2023, 01/03, 01/19/2023, Additional history exists ADVANCE CARE PLANNING 02/26/2027 02/26/2022 , 03/14/2016, 02/16/2011 LIPID 02/26/2027 02/26/2022, 11/03, 02/25/2020, Additional history exists DTAP/TDAP/TD IMMUNIZATION (5 - Td or Tdap) 02/27/2032 02/26/2022, 11/08/2011, 09/16/2011, Additional history exists COLONOSCOPY Discontinued 04/27/2010, 06/14/2006 COLORECTAL CANCER SCREENING Discontinued HEPATITIS C SCREENING Completed 02/01/2012 Pneumococcal Vaccine: 65+ Years Completed 07/19/2015, 02/16/2011 DEPRESSION ACTION PLAN Completed 02/14/2016 ZOSTER IMMUNIZATION Completed 12/03/2019, 06/19/2019, 07/02/2018, Additional history exists MAMMO SCREENING Discontinued 03/07/2022, 12/2018 (Not Needed), 11/27/2016 (Declined), Additional history exists CT COLONOGRAPHY Discontinued FIT Discontinued FLEX SIG Discontinued HPV IMMUNIZATION Aged Out No longer e ligible based on patient's age to complete this topic MENINGITIS IMMUNIZATION Aged Out No l onger eligible based on patient's age to complete this topic RSV MONOCLONAL ANTIBODY Aged Out No l onger eligible based on patient's age to complete this topic sDNA (Cologuard) Discontinued Procedures Procedure Name Priority Date/Time Associated Diagnosis Comments GLUCOSE BY METER Routine 01/21/2023 8:38 AM CDT MA SCREENING BILATERAL W/ ELLIOTT Routine 03/07/2022 1:58 PM CDT Preventative health care Encounter for screening mammogram for malignant neoplasm of breast TSH WITH FREE T4 REFLEX Routine 02/26/2022 4:36 PM CDT Preventative health care LIPID PROFILE Routine 02/26/2022 4:36 PM CDT Preventative health care DX HIP/PELVIS/SPINE W LAT FRACTION ANALYSIS Routine 02/01/2021 1:10 PM CDT Asymptomatic menopausal state Preventative health care HEPATITIS C ANTIBODY Routine 02/01/2012 8:56 AM CDT History of transfusion of whole blood COLONOSCOPY Routine 04/27/2010 8:12 AM CDT from Last 3 Months or Most Recently Relevant to Health Maintenance Results * Glucose by meter (01/21/2023 8:38 AM CDT) GLUCOSE BY METER POCT 99 70 - 99 mg/dL 01/21/2023 8:45 AM CDT [facility] POC Blood, Capillary BLOOD SPECIMEN / Unknown 01/21/2023 8:38 AM CDT 01/21/2023 8:45 AM CDT MD ADRIANNA Whitmore - RAISA POCT [facility] POC [facility] [place] [facility] [address] [facility], [address] [place] [address], [facility] [phone] * MA Screen Bilateral w/Elliott (03/07/2022 1:58 PM CDT) Anatomical Region Laterality Modality Breast Bilateral Mammography Narrative 03/07/2022 2:09 PM CDT BILATERAL FULL FIELD DIGITAL SCREENING MAMMOGRAM WITH TOMOSYNTHESIS Performed on: 03/07/22 Compared to: 04/10/2012 and 04/04/2011 Technique: ??This study was evaluated with the assistance of Computer-Aided Detection. ??Breast Tomosynthesis was used in interpretation. Findings: The breasts have scattered areas of fibroglandular density. ?? There is no radiographic evidence of malignancy. IMPRESSION: ACR BI-RADS Category 1: Negative RECOMMENDED FOLLOW-UP: Annual routine screening mammogram The results and recommendations of this examination will be communicated to the patient. Carmela Zee MD IMG MAMMOGRAPHY ORD ERABLES * TSH WITH FREE T4 REFLEX (02/26/2022 4:36 PM CDT) TSH 1.00 0.40 - 4.00 mU/L 02/28/2022 4:41 PM CDT [facility] Blood STRUCTURE OF LEFT UPPER LIMB / Unknown Venipuncture / Unknown 02/26/2022 4:36 PM CDT 02/26/2022 4:36 PM CDT Carmela Zee MD LAB - BLOOD ORDERAB LES [facility] [address] Lab (no room number, 1st floor of clinic) [place] [address], [facility] [phone] * (ABNORMAL) Lipid Profile (Chol, Trig, HDL, LDL calc) (02/26/2022 4:36 PM CDT) Cholesterol 189 <200 mg/dL 02/28/2022 4:33 PM CDT [facility] Triglycerides 170(H) <150 mg/dL 02/28/2022 4:33 PM CDT [facility] Direct Measure HDL 55 >=50 mg/dL 02/28/2022 4:33 PM CDT [facility] LDL Cholesterol Calculated 100 <=100 mg/dL 02/28/2022 4:33 PM CDT [facility] Non HDL Cholesterol 134(H) <130 mg/dL 02/28/2022 4:33 PM CDT [facility] Patient Fasting > 8hrs? No 02/28/2022 4:33 PM CDT [facility] Blood STRUCTURE OF LEFT UPPER LIMB / Unknown Venipuncture / Unknown 02/26/2022 4:36 PM CDT 02/26/2022 4:36 PM CDT Narrative [facility] - 02/28/2022 4:33 PM CDT Cholesterol Desirable: ??<200 mg/dL Triglycerides Normal: ??Less than 150 mg/dL Borderline High: ??150-199 mg/dL High: ??200-499 mg/dL Very High: ??Greater than or equal to 500 mg/dL Direct Measure HDL Female: ??Greater than or equal to 50 mg/dL Male: ??Greater than or equal to 40 mg/dL LDL Cholesterol Desirable: ??<100mg/dL Above Desirable: ??100-129 mg/dL Borderline High: ??130-159 mg/dL High: ??160-189 mg/dL Very High: ??>= 190 mg/dL Non HDL Cholesterol Desirable: ??130 mg/dL Above Desirable: ??130-159 mg/dL Borderline High: ??160-189 mg/dL High: ??190-219 mg/dL Very High: ??Greater than or equal to 220 mg/dL Carmela eZe MD LAB - BLOOD ORDERAB LES [facility]AT[facility] [address] Lab (no room number, 1st floor of clinic) [place] [address], [facility] [phone] * DX Hip/Pelvis/Spine w Lat Fraction Radha (02/01/2021 1:10 PM CDT) Anatomical Region Laterality Modality Dexa Bone Mineral Den sity Narrative 02/03/2021 6:53 AM CDT BONE DENSITOMETRY [address] [address] 02/01/2021 ?? PATIENT: David Espino CHART: [id number] : ??1945 AGE: ??75 year old SEX: ??female REFERRING PROVIDER: ??Carmela Zee MD ?? PROCEDURE: ??Bone density scanning was performed using DXA technology of the lumbar spine and hip. ??Scanning was performed on a HardDrones scanner. ??Reporting is completed in the form of a T-score. ??The T-score represents the standard deviation from peak bone mass based on a young healthy adult. ?? REFERENCE T-SCORES: ?Normal ?-1.0 and greater ?Osteopenia ? Between -1.0 and -2.5 ?Osteoporosis ? -2.5 and less ? RISK FACTORS: ??Post-menopausal, Height loss of 2.75 inches, follow up osteopenia CURRENT TREATMENT: ??Calcium ?? FINDINGS: ? Lumbar Spine (L2-L4) ?T-score: ??-1.0, marked degenerative changes present, most marked at L1, so only L2-4 are evaluated. ? Left Femoral Neck ?T-score: ??-2.7 ? Right Femoral Neck ?T-score: ??-2.6 ? Lumbar (L2-L4) BMD: 1.092 ??Previous: 1.168 ? Total Hip Mean BMD: 0.732 ??Previous: 0.787 ?? Comparison is made to another DXA performed on the same HardDrones ?? machine on 04/17/2017. ?? LATERAL VERTEBRAL ASSESSMENT Procedure: ??Vertebral fracture assessment was performed in the lateral decubitus position using a HardDrones ??densitometer. Indications for VFA: T-score of -1.0 or worse, age (female>69) and height loss > 1.5 Confounding factors for VFA: None. ??The LVA scan is interpretable from T11 to L5. VFA Findings: Using the semi-quantitative analysis of Josemanuel there was evidence of no spinal deformity VFA Impression: David Espino has no vertebral fractures identified on the VFA. IMPRESSION Osteoporosis., Degenerative changes of the lumbar spine which may falsely elevate results. There has been significant decrease in bone density of the lumbar spine. There has been significant decrease in bone density of the hip(s). Recommendations include ensuring adequate Calcium and Vitamin D. The current NOF Guidelines recommend treatment for patients with prior hip or vertebral fracture, T-score -2.5 or below, or 10 year risk of any major osteoporotic fracture >20% or 10 year risk of hip fracture >3%, as calculated using the FRAX calculator (www.shef.ac.uk/FRAX or you can google FRAX). ?? Based on these guidelines, treatment (in addition to calcium and vitamin D) is recommended for this patient, after ruling out other causes of osteoporosis. This is meant as an aid to clinical decision making; one must still use clinical judgement. Follow up can be considered in 2 years. Mis Cabrera M.D. Electronically signed ?? Carmela Zee MD IMG DEXA ORDERABLES * Hepatitis C antibody (02/01/2012 8:56 AM CDT) Pathologist [facility] Hepatitis C Antibody Negative NEG [facility] Blood specimen (specimen) 02/01/2012 8:56 AM CDT 02/01/2012 8:57 AM CDT Carmela Zee MD LAB - BLOOD ORDERAB LES [facility] * COLONOSCOPY (04/27/2010 8:12 AM CDT) COLONOSCOPY [facility] Patient Name: David Espino ? Procedure Date: 04/27/2010 8:12 AM ? N: [id number] ? Date of : 1945 ? Admit Type: Outpatient ?Age: 64 ? Gender: Female ?Attending MD: Angela Alvarez MD ? Procedure: ?Colonoscopy Indications: ?Hematochezia, Constipation Providers: ?Angela Alvarez MD Referring MD: ? Carmela Zee MD Medicines: ?Benadryl IV 50 mgs, Fentanyl (Sublimaze) IVP 100 ?mcgs, Versed (Midazolam) IVP 2 mgs Complications: ?No immediate complications Procedure: ?Pre-Anesthesia Assessment: ?- Prior to the procedure, a History and Physical ?was performed, and patient medications and ?allergies were reviewed. The patient is competent. ?The risks and benefits of the procedure and the ?sedation options and risks were discussed with the ?patient. All questions were answered and informed ?consent was obtained. Patient identification and ?proposed procedure were verified by the physician ?and the nurse in the pre-procedure area in the ?procedure room. Mental Status Examination: alert ?and oriented. Airway Examination: normal ?oropharyngeal airway and neck mobility. Respiratory ?Examination: clear to auscultation. CV Examination: ?normal. Prophylactic Antibiotics: The patient does ?not require prophylactic antibiotics. Prior ?Anticoagulants: The patient has taken no previous ?anticoagulant or antiplatelet agents. ASA Grade ?Assessment: II - A patient with mild systemic ?disease. After reviewing the risks and benefits, ?the patient was deemed in satisfactory condition to ?undergo the procedure. The anesthesia plan was to ?use moderate sedation / analgesia (conscious ?sedation). Immediately prior to administration of ?medications, the patient was re-assessed for ?adequacy to receive sedatives. The heart rate, ?respiratory rate, oxygen saturations, blood ?pressure, adequacy of pulmonary ventilation, and ?response to care were monitored throughout the ?procedure. The physical status of the patient was ?re-assessed after the procedure. ?After obtaining informed consent, the colonoscope ?was passed under direct vision. Throughout the ?procedure, the patient's blood pressure, pulse, and ?oxygen saturations were monitored continuously. The ?Colonoscope was introduced through the anus and ?advanced to the cecum, identified by appendiceal ?orifice & ileocecal valve. The colonoscopy was ?performed without difficulty. The patient tolerated ?the procedure well. The quality of the bowel ?preparation was adequate to identify polyps. ? Findings: ? The perianal and digital rectal examinations were normal. A few ? small-mouthed diverticula were found in the sigmoid colon. No other ? significant abnormalities were identified in a careful examination of ? the remainder of the colon. ? Impression: ? - Diverticulosis sigmoid colon. Recommendation: ? - Discharge patient to home (ambulatory). ?- Repeat colonoscopy in 10 years for screening ?purposes. ?- High fiber diet indefinitely. ?- Use fiber, for example Citrucel, Fibercon, Konsyl ?or Metamucil. ? Eugenia Alvarez M.D. Angela Alvarez MD Signed Date: 04/27/2010 8:45 AM Number of Addenda: 0 I was physically present for the entire viewing portion of the exam. Note initiated on 04/27/2010 8:12 AM Scope Withdrawal Time: 07 minutes 06 seconds Total Procedure Duration: 11 minutes 31 seconds RADIOLOGY RESULTS 04/27/2010 8:12 AM CDT Carmela Zee MD PROCEDURES RADIOLOGY RESULTS from Last 3 Months or Most Recently Relevant to Health Maintenance Advance Directives For more information, please contact: [phone] * Full Code (Latest Code Status on File) Date Activated Date Inactivated Comments 01/18/2023 4:00 PM 01/22/2023 5:38 PM All basic an d advanced life-sustaining interventions are performed as appropriate Question Answer Comments Code status determined by: Discussion with patie nt/ legal decision maker Care Teams Automotive Title Clerk Relationship Specialty Start Date End Date Carmela Zee MD [address] [address] PCP - General 03/14/09 Carmela Zee MD [address] [address] Assigned PCP 11/20/20 Justina Patrick MD [address] [place] [address] Assigned Surgical Provider 12/08/22 Josseline Garcia, RN Specialty Director [facility] Thoracic Surgery 09/16/23
--- OUTSIDE RECORDS SUMMARY | 2024-05-14 13:57 | XMS_ITS | Encounter Summary ---
Author Organization [place] Address [facility] [place] [address] Care Team Providers Care Optical Glass Silverer Name Role Phone Carmela Zee MD Primary Care Provider [phone] Carmela Zee MD Unavailable [phone] Darnell Gray MD, Madhuri Unavailable [phone] Josseline Garcia RN Unavailable Unavailable Encounter Details Date Type Department Care Team (Late st Contact Info) Description 03/20/2023 MyC Medical Advice [facility] [address] [place] [address] Justina Patrick MD [address] [place] [address] Social History Tobacco Use Types Packs/Day [...] suspected to have Coronavirus/COVID-19? No / Unsure 03/01/2023 11:06 AM CDT documented as of this encounter Plan of Treatment Not on file documented as of this encounter Visit Diagnoses Not on filedocumented in this encounter Additional Health Concerns Assessment Noted Time PHQ-9 Depression Total Score: 3 02/27/20 22 3:44 PM CDT documented as of this encounter Care Teams Optical Glass Silverer Relationship Specialty Start Date End Date Carmela Zee MD [address] [address] PCP - General 03/14/09 Carmela Zee MD [address] [address] Assigned PCP 11/20/20 Justina Patrick MD [address] [place] [address] Assigned Surgical Provider 12/08/22 Josseline Garcia, MING Specialty Maintenance Shop Manager Thoracic Surgery 09/16/23 documented as of this encounter
--- OUTSIDE RECORDS SUMMARY | 2024-05-14 13:57 | XMS_ITS | Encounter Summary ---
Author Organization [place] Address [facility] [place] [address] Care Team Providers Care Top Frame Maker Name Role Phone Chris Zee MD Primary Care Provider [phone] Darnell Gray MD, Justina Unavailable [phone] Chris Zee MD Unavailable [phone] Heather Doran PA-C Unavailable [phone] Darnell Gray MD, Justina Unavailable [phone] Josseline Garcia RN Unavailable Unavailable Encounter Details Date Type Department Care Team (Late st Contact Info) Description 11/19/2022 MyC Medical Advice [facility] [address] [place] [address] Suyapa Simons Social History Tobacco Use Types Packs/Day Years [...] documented as of this encounter Care Teams Top Frame Maker Relationship Specialty Start Date End Date Chris Zee MD [address] [address] PCP - General 03/14/09 Justina Patrick MD [address] [place] [address] Assigned Surgical Provider 05/27/20 11/30/22 Chris Zee MD [address] [address] Assigned PCP 11/20/20 Heather Doran PA-C [address] [place] [address] Assigned Surgical Provider 12/01/22 12/07/22 Justina Patrick MD [address] [place] [address] Assigned Surgical Provider 12/08/22 Josseline Garcia, RN Specialty Financial Analysis Consultant Thoracic Surgery 09/16/23 documented as of this encounter
--- OUTSIDE RECORDS SUMMARY | 2024-05-14 13:57 | XMS_ITS | Encounter Summary ---
Author Organization [place] Address [facility] [place] [address] Care Team Providers Care Magnetic Resonance Imaging Coordinator Name Role Phone Carmela Zee MD Primary Care Provider [phone] Carmela Zee MD Unavailable Heather Doran PA-C Unavailable [phone] Darnell Gray MD, Justina Unavailable [phone] Josseline Garcia RN Unavailable Unavailable Encounter Details Date Type Department Care Team (Late st Contact Info) Description 12/03/2022 [facility] Medical Advice [facility] 9 [place] [address] Josseline Garcia, RN Social History [...] suspected to have Coronavirus/COVID-19? No / Unsure 11/26/2022 10:59 PM CDT documented as of this encounter Plan of Treatment Not on file documented as of this encounter Visit Diagnoses Not on filedocumented in this encounter Additional Health Concerns Assessment Noted Time PHQ-9 Depression Total Score: 3 02/27/20 22 3:44 PM CDT documented as of this encounter Care Teams Magnetic Resonance Imaging Coordinator Relationship Specialty Start Date End Date Carmela Zee MD [address] [place], [place] [address] PCP - General 03/14/09 Carmela Zee MD [address] [place], [place] [address] Assigned PCP 11/20/20 Heather Doran PA-C 909 [facility] 4TH [place], [place] [address] Assigned Surgical Provider 12/01/22 12/07/22 Justina Patrick MD 909 [place], [place] [address] Assigned Surgical Provider 12/08/22 Josseline Garcia, RN Specialty Tactical Debriefer Thoracic Surgery 09/16/23 documented as of this encounter
--- OUTSIDE RECORDS SUMMARY | 2024-05-14 13:57 | XMS_ITS | Encounter Summary ---
Author Organization [place] Address [address] [place] [address]. [place] [address] Care Team Providers Care Psychiatric Registered Nurse Name Role Phone Carmela Zee MD Primary Care Provider [phone] Darnell Gray MD, Justina Unavailable [phone] Carmela Zee MD Unavailable Heather Doran PA-C Unavailable + [phone] Darnell Gray MD, Justina Unavailable [phone] Josseline Garcia RN Unavailable Unavailable Encounter Details Date Type Department Care Team (Late st Contact Info) Description 10/24/2022 [facility] Medical Advice [facility] [address] [place] [address] Justina Patrick MD [address] [place] [address] Social History Tobacco Use Types Packs/Day [...] documented as of this encounter Care Teams Psychiatric Registered Nurse Relationship Specialty Start Date End Date Carmela Zee MD [address] [facility] 200 [place] [address] PCP - General 03/14/09 Justina Patrick MD [address] [place] [address] Assigned Surgical Provider 05/27/20 11/30/22 Carmela Zee MD [address] [facility] 200 [place], [place] [address] Assigned PCP 11/20/20 Heather Doran PA-C [address] [place] [address] 4[address] [place], [place] [address] Assigned Surgical Provider 12/01/22 12/07/22 Justina Patrick MD [address] [place] [address] Assigned Surgical Provider 12/08/22 Josseline Garcia, RN Specialty Steel Die Press Set Up Operator Thoracic Surgery 09/16/23 documented as of this encounter
--- OUTSIDE RECORDS SUMMARY | 2024-05-14 13:57 | XMS_ITS | Encounter Summary ---
Author Organization [place] Address [address] [place] [address]. [place] [address] Care Team Providers Care Director Of Recruiting Name Role Phone Carmela Zee MD Primary Care Provider [phone] Carmela Zee MD Unavailable [phone] Darnell Gray MD, Justina Unavailable [phone] Josseline Garcia RN Unavailable Unavailable Encounter Details Date Type Department Care Team (Late st Contact Info) Description 02/13/2023 [facility] Medical Advice [facility] 9 [place] [address] Josseline Garcia, RN Social History [...] documented as of this encounter Care Teams Director Of Recruiting Relationship Specialty Start Date End Date Carmela Zee MD [address] [place] [address] PCP - General 03/14/09 Carmela Zee MD [address] [place] [address] Assigned PCP 11/20/20 Justina Patrick MD [address] [place] [address] Assigned Surgical Provider 12/08/22 Josseline Garcia, MING Specialty Product Communications Manager Thoracic Surgery 09/16/23 documented as of this encounter
--- OUTSIDE RECORDS SUMMARY | 2024-05-14 13:57 | XMS_ITS | Encounter Summary ---
Author Organization [place] Address [facility] [place] [address] Care Team Providers Care Postal Superintendent Name Role Phone Carmela Zee MD Primary Care Provider [phone] Carmela Zee MD Unavailable [phone] Darnell Gray MD, Madhuri Unavailable [phone] Josseline Garcia RN Unavailable Unavailable Encounter Details Date Type Department Care Team (Late st Contact Info) Description 01/16/2023 [facility] Medical Advice [facility] [address] [place] [address] Justina Patrick MD [address] [place] [address] Social History Tobacco Use Types Packs/Day [...] suspected to have Coronavirus/COVID-19? No / Unsure 01/18/2023 5:39 AM CDT documented as of this encounter Plan of Treatment Not on file documented as of this encounter Visit Diagnoses Not on filedocumented in this encounter Additional Health Concerns Assessment Noted Time PHQ-9 Depression Total Score: 3 02/27/20 22 3:44 PM CDT documented as of this encounter Care Teams Postal Superintendent Relationship Specialty Start Date End Date Carmela Zee MD [address] [address] PCP - General 03/14/09 Carmela Zee MD [address] [address] Assigned PCP 11/20/20 Justina Patrick MD [address] [place] [address] Assigned Surgical Provider 12/08/22 Josseline Garcia, MING Specialty First Mate Thoracic Surgery 09/16/23 documented as of this encounter
--- OUTSIDE RECORDS SUMMARY | 2024-05-14 13:57 | XMS_ITS | Encounter Summary ---
Author Organization [place] Address [facility] [place] [address] Care Team Providers Care Professor Of Physical Education Name Role Phone Carmela Zee MD Primary Care Provider [phone] Carmela Zee MD Unavailable [phone] Darnell Gray MD, Madhuri Unavailable [phone] Josseline Garcia RN Unavailable Unavailable Encounter Details Date Type Department Care Team (Late st Contact Info) Description 02/12/2023 [facility] Medical Advice [facility] [address] [place] [address] Justina Patrick MD [address] [place] [address] Social History Tobacco Use Types Packs/Day [...] documented as of this encounter Care Teams Professor Of Physical Education Relationship Specialty Start Date End Date Carmela Zee MD [address] [address] PCP - General 03/14/09 Carmela Zee MD [address] [employer] [address] Assigned PCP 11/20/20 Justina Patrick MD [address] [place] [address] Assigned Surgical Provider 12/08/22 Josseline Garcia, MING Specialty Supervisor Fabrication Department Thoracic Surgery 09/16/23 documented as of this encounter
--- OUTSIDE RECORDS SUMMARY | 2024-05-14 13:57 | XMS_ITS | Referral Summary ---
Author Organization [place] Address [facility] [place] [address] Care Team Providers Care Job Change Crew Member Name Role Phone Carmela Zee MD Primary Care Provider [phone] Carmela Zee MD Unavailable [phone] Darnell Gray MD, Justina Unavailable [phone] Josseline Garcia RN Unavailable Unavailable Allergies [...] (ASTELIN) 0.1 % nasal sprayIndications:VMR (vasomotor rhinitis) [place] 2 sprays in nostril 2 times daily [...] migh t be different from the original. [email or web address] Problem Noted Date Diagnosed Date Large hiatal hernia 01/18/2023 Hiatal hernia 05/21/2018 Overview: Added automatically from request for surgery [id number] Added automatically from request for surgery [id number] Overactive bladder 12/17/2017 Chronic interstitial cystitis 12/17/2017 [...] d (SHINGRIX) 06/19/2019 Zoster vaccine, live 08/04/2016 Social History Tobacco Use Types Packs/Day Years [...] 03/07/2023 10:13 AM CDT Plan of Treatment Not on file Procedures Procedure Name Priority Date/Time Associated Diagnosis [...] Glucose by meter (01/21/2023 8:38 AM CDT) Pathologist [facility] GLUCOSE BY METER POCT 99 70 - 99 mg/dL 01/21/2023 8:45 AM CDT [facility] LABORATORY POC Blood, Capillary BLOOD SPECIMEN / Unknown 01/21/2023 8:38 AM CDT 01/21/2023 8:45 AM CDT Justina Gary MD [facility] POCT UU LABORATORY POC [facility] Core Lab [address] [facility], Room [address] [place] [address] [phone] * MA Screen Bilateral w/Elliott (03/07/2022 1:58 [...] LAB - BLOOD ORDERAB LES OX LABORATORY [facility] [address] Lab (no room number, 1st floor of clinic) [place] [address], [facility] [phone] * (ABNORMAL) Lipid Profile (Chol, Trig, HDL, [...] than or equal to 220 mg/dL Carmela Zee MD LAB - BLOOD ORDERAB LES [facility] [address] Lab (no room number, 1st floor of clinic) [place] [address], [facility] [phone] * DX Hip/Pelvis/Spine w Lat Fraction Radha (02/01/2021 1:10 PM CDT) Anatomical Region Laterality Modality Dexa Bone Mineral Den sity Narrative 02/03/2021 6:53 AM CDT BONE DENSITOMETRY [address] [address] 02/01/2021 ?? PATIENT: David Espino CHART: [id number] : ??1945 AGE: ??75 year old SEX: ??female REFERRING PROVIDER: ??Carmela Zee MD ?? PROCEDURE: ??Bone density scanning was performed using DXA technology of the lumbar spine and hip. ??Scanning was performed on a [employer] scanner. ??Reporting is completed in the form [...] to another DXA performed on the same [employer] ?? machine on 04/17/2017. ?? LATERAL VERTEBRAL ASSESSMENT Procedure: ??Vertebral fracture assessment was performed in the lateral decubitus position using a [facility] ??densitometer. Indications for VFA: T-score of -1.0 or worse, age (female>69) and height loss > 1.5 Confounding factors for VFA: None. ??The LVA scan is interpretable from T11 to L5. VFA Findings: Using the semi-quantitative analysis of Genloren there was evidence of no spinal deformity [...] Hepatitis C antibody (02/01/2012 8:56 AM CDT) [facility] Hepatitis C Antibody Negative [facility] Blood specimen (specimen) 02/01/2012 8:56 AM CDT 02/01/2012 8:57 AM CDT Carmela Zee MD LAB - BLOOD ORDERAB LES [facility] * COLONOSCOPY (04/27/2010 8:12 AM CDT) [facility] Patient Name: David Espino ? Procedure Date: 04/27/2010 8:12 AM ? Date of : 1945 ? Admit [...] Konsyl ?or Metamucil. ? Eugenia Alvarez M.D. Rex Alvarez MD Signed Date: 04/27/2010 8:45 AM [...] Advance Directives For more information, please contact: [phone] * Full Code (Latest Code Status on File) Date Activated Date Inactivated Comments 01/18/2023 4:00 PM 01/22/2023 5:38 PM All basic an d advanced life-sustaining interventions are performed as appropriate Question Answer Comments Code status determined by: Discussion with anjana nt/ legal decision maker Care Teams Job Change Crew Member Relationship Specialty Start Date End Date Carmela Zee MD [address] [place] [address] PCP - General 03/14/09 Carmela Zee MD [address] [facility] 200 [place] [address] Assigned PCP 11/20/20 Justina Patrick MD [address] [place] [address] Assigned Surgical Provider 12/08/22 Josseline Garcia, RN Specialty Sizing Machine And Drier Operator Thoracic Surgery 09/16/23
--- OUTSIDE RECORDS SUMMARY | 2024-05-14 13:57 | XMS_ITS | Encounter Summary ---
Author Organization [place] Address [address] [place] [address]. [place] [address] Care Team Providers Care Powerhouse Operator Name Role Phone Carmela Zee MD Primary Care Provider [phone] Carmela Zee MD Unavailable [phone] Darnell Gray MD, Justina Unavailable [phone] Josseline Garcia RN Unavailable Unavailable Encounter Details Date Type Department Care Team (Late st Contact Info) Description 03/07/2023 [facility] Medical Advice [facility] 9 [place] [address] Josseline Garcia, RN Social History [...] documented as of this encounter Care Teams Powerhouse Operator Relationship Specialty Start Date End Date Carmela Zee MD [address] [place] [address] PCP - General 03/14/09 Carmela Zee MD [address] [place] [address] Assigned PCP 11/20/20 Justina Patrick MD [address] [place] [address] Assigned Surgical Provider 12/08/22 Josseline Garcia, MING Specialty Self Pay Specialist Thoracic Surgery 09/16/23 documented as of this encounter
--- OUTSIDE RECORDS SUMMARY | 2024-05-14 13:57 | XMS_ITS | Continuity of Care Document ---
Author Organization [facility] Address [address] [place] [address] Phone Care Team Providers Care Fly Rail Operator Name Role Phone Gale Bernal Unavailable Unavailable Procedures Procedure Date Office/Outpatient Visit,[facility] 2021 Advance Directives Directive Yes / No Effective Date File Name No Information Encounters Encounter Description Practice Location Reason(s) For Visit Diagnoses Date Provider Providers Copied on Encounter Office/Outpat ient Visit,[facility], [facility], [address], [place], [place], [id number], tel:[phone] [facility] Unspecified kyphosis, thoracic regionOther idiopathic scoliosis, lumbar region Niranjan Beasley. [facility], [address] [place] [address] 600, [place], [address], [place]. tel:[phone] Referring Provider: Referring Self, [address] [place] [address] [address], [place], [address]. tel:[phone] [facility], [address], [place], [place], [id number], [place] tel:[phone] [facility] Pain in thoracic spine Niranjan Beasley. [facility], [address] [place] [address] 600, [place], [address], [place]. tel:[phone] Family History Family Member Type Diagnosis Age At Onset No Information Payers Payer name Insurance type Covered [place] [id number] Medicare [facility] [id number] Social History Type Description Quantity Date Captured Comments Alcohol Use Details Unknown Caffeine Use Details Unknown Tobacco Use Status Current non-smoker Smoking Status Never smoker Non-Smoking Tobacco Use Details : No Details Available : No Details Available Sex Female Vital Signs Date / Time: Height Weight BMI Pulse Rate Blood Pressure Temperature Respiratory Rate Body Surface Area Head Circumference Head Circ. Percentile Wt./Blu. Percentile BMI percentile Pulse Ox Inhaled Ox 1:03 PM 62.00 in 63.957 kg (141.00 lbs) 25.7 9 kg/m eter (2) Chief Complaint And Reason For Visit No Information Reason For Referral Reason For Referral No Information History Of Present Illness Encounter Date Complaint History Of Prese nt Illness No Information Functional Status Date Functional Assessmen t No Information Instructions Date Instruction Additional Infor mation No Information Assessments Type Assessment Date assessment Unspecified kyphosis, thoracic r egion assessment Other idiopathic scoliosis, lumb ar region Patient Care Teams Name Effective Dates (start - stop) Status Members No Information
--- OUTSIDE RECORDS SUMMARY | 2024-05-14 13:57 | XMS_ITS | Encounter Summary ---
Author Organization [place] Address [facility] [place] [address] Care Team Providers Care Whale Fisherman Name Role Phone Carmela Zee MD Primary Care Provider [phone] Carmela Zee MD Unavailable [phone] Darnell Gray MD, Madhuri Unavailable [phone] Josseline Garcia RN Unavailable Unavailable Encounter Details Date Type Department Care Team (Late st Contact Info) Description 01/03/2023 [facility] Medical Advice [facility] [address] [place] [address] Justina Patrick MD [address] [place] [address] Social History Tobacco Use Types Packs/Day [...] documented as of this encounter Care Teams Whale Fisherman Relationship Specialty Start Date End Date Carmela Zee MD [address] [address] PCP - General 03/14/09 Carmela Zee MD [address] [address] Assigned PCP 11/20/20 Justina Patrick MD [address] [place] [address] Assigned Surgical Provider 12/08/22 Josseline Garcia, RN Specialty Jewelry Sales Representative Thoracic Surgery 09/16/23 documented as of this encounter
--- OUTSIDE RECORDS SUMMARY | 2024-05-14 13:58 | XMS_ITS | Encounter Summary ---
Author Organization [place] Address [facility] [place] [address] Care Team Providers Care Manager Truck Name Role Phone Carmela Zee MD Primary Care Provider [phone] Darnell Gray MD, Justina Unavailable [phone] Carmela Zee MD Unavailable Heather Doran PA-C Unavailable +[phone] Darnell Gray MD, Justina Unavailable [phone] Josseline Garcia RN Unavailable Unavailable Encounter Details Date Type Department Care Team (Late st Contact Info) Description 06/07/2022 [facility] Medical Advice [facility] [address] [place] [address] Janeth Michel APRN [facility] [address] [facility] [address] [place] [address] Social History Tobacco Use Types Packs/Day [...] suspected to have Coronavirus/COVID-19? No / Unsure 05/09/2022 1:34 PM CDT documented as of this encounter Plan of Treatment Not on file documented as of this encounter Visit Diagnoses Not on filedocumented in this encounter Additional Health Concerns Assessment Noted Time PHQ-9 Depression Total Score: 3 02/27/20 22 3:44 PM CDT documented as of this encounter Care Teams Manager Truck Relationship Specialty Start Date End Date Carmela Zee MD [address] [place] [address] PCP - General 03/14/09 Justina Patrick MD [address] [place] [address] Assigned Surgical Provider 05/27/20 11/30/22 Carmela Zee MD [address] [address] Assigned PCP 11/20/20 Heather Doran PA-C [address] [place] [address] 4[address] [place], [place] [address] Assigned Surgical Provider 12/01/22 12/07/22 Justina Patrick MD [address] [place] [address] 392065 Assigned Surgical Provider 12/08/22 Josseline Garcia, RN Specialty Senior Product Consultant Thoracic Surgery 09/16/23 documented as of this encounter
--- OUTSIDE RECORDS SUMMARY | 2024-05-14 13:58 | XMS_ITS | Encounter Summary ---
Author Organization [place] Address [address] [place] [address]. [place] [address] Care Team Providers Care Sprinkler Worker Name Role Phone Carmela Zee MD Primary Care Provider [phone] Darnell Gray MD, Justina Unavailable [phone] Carmela Zee MD Unavailable [phone] Heather Doran PA-C Unavailable + [phone] Darnell Gray MD, Justina Unavailable [phone] Josseline Garcia RN Unavailable Unavailable Encounter Details Date Type Department Care Team (Late st Contact Info) Description 04/02/2022 [facility] Medical Advice [facility] [address] [place] [address] Justina Patrick MD [address] [place] [address] Social History Tobacco Use Types Packs/Day [...] suspected to have Coronavirus/COVID-19? No / Unsure 03/07/2022 1:18 PM CDT documented as of this encounter Plan of Treatment Not on file documented as of this encounter Visit Diagnoses Not on filedocumented in this encounter Additional Health Concerns Assessment Noted Time PHQ-9 Depression Total Score: 3 02/27/20 22 3:44 PM CDT documented as of this encounter Care Teams Sprinkler Worker Relationship Specialty Start Date End Date Carmela Zee MD [address] [place] [address] PCP - General 03/14/09 Justina Patrick MD [address] [place] [address] Assigned Surgical Provider 05/27/20 11/30/22 Carmela Zee MD [address] [place] [address] Assigned PCP 11/20/20 Heather Doran PA-C [address] [place] [address] 4[address] [place], [place] [address] Assigned Surgical Provider 12/01/22 12/07/22 Justina Patrick MD [address] [place] [id number] Assigned Surgical Provider 12/08/22 Josseline Garcia, RN Specialty Assistant Bookkeeper Thoracic Surgery 09/16/23 documented as of this encounter
--- OUTSIDE RECORDS SUMMARY | 2024-05-14 13:58 | XMS_ITS | Encounter Summary ---
Author Organization [place] Address [facility]0 [facility] [address] Care Team Providers Care Mid Level Business Analyst Name Role Phone Chris Zee MD Primary Care Provider Darnell Gray MD, Justina Unavailable [phone] Chris Zee MD Unavailable Heather Doran PA-C Unavailable + [phone] Darnell Gray MD, Justina Unavailable [phone] Josseline Garcia RN Unavailable Unavailable Reason for Visit * Reason Comments Medication Refill Encounter Details Date Type Department Care Team (Late st Contact Info) Description 08/14/2022 Refill [facility] [address] [place] [address] Rola Fernandez APRN [facility] [address] [place] [address] Medication Refill Social History Tobacco Use Types Packs/Day Years [...] as of this encounter Visit Diagnoses Diagnosis Dysthymia Dysthymic disorder documented in this encounter Additional Health Concerns Assessment Noted Time PHQ-9 Depression Total Score: 3 02/27/20 22 3:44 PM CDT documented as of this encounter Care Teams Mid Level Business Analyst Relationship Specialty Start Date End Date Chris Zee MD [address] [employer] [address] [address] PCP - General 03/14/09 Justina Patrick MD [address] [place] [address] Assigned Surgical Provider 05/27/20 11/30/22 Chris Zee MD [address] [employer] [address] [address] Assigned PCP 11/20/20 Heather Doran PA-C [address] [place] [address] 4[address] [place] [address] Assigned Surgical Provider 12/01/22 12/07/22 Justina Patrick MD [address] [place] [address] Assigned Surgical Provider 12/08/22 Josseline Garcia, RN Specialty Continuous Dryout Operator Thoracic Surgery 09/16/23 documented as of this encounter
--- OUTSIDE RECORDS SUMMARY | 2024-05-14 13:58 | XMS_ITS | Encounter Summary ---
Author Organization [place] Address [facility]0 [place] [address] Care Team Providers Care Procurement Professional Name Role Phone Carmela Zee MD Primary Care Provider Darnell Gray MD, Justina Unavailable [phone] Carmela Zee MD Unavailable [phone] Heather Doran PA-C Unavailable +- [phone] Darnell Gray MD, Justina Unavailable [phone] Josseline Garcia RN Unavailable Unavailable Reason for Visit * Reason Onset Date Comments Refill Request 05/24/2022 Encounter Details Date Type Department Care Team (Late st Contact Info) Description 05/24/2022 MyC Refill [facility] [address] [place] [address] Carmela Zee MD [address] [place] [address] Refill Request Social History Tobacco Use Types Packs/Day [...] PM CDT documented as of this encounter Miscellaneous Notes * Telephone Encounter - Alin Mcpherson RN - 05/26/2022 11:27 AM CDT Prescription approved per [facility] Refill Protocol. documented in this encounter Plan of Treatment Not on file documented as of this encounter Visit Diagnoses Diagnosis Age-related osteoporosis without current pathological fracture Senile osteoporosis documented in this encounter Additional Health Concerns Assessment Noted Time PHQ-9 Depression Total Score: 3 02/27/20 3:44 PM CDT documented as of this encounter Care Teams Procurement Professional Relationship Specialty Start Date End Date Carmela Zee MD [address] [employer] [address] [id number] PCP - General 03/14/09 Justina Patrick MD [address] [place] [address] Assigned Surgical Provider 05/27/20 11/30/22 Carmela Zee MD [address] [address] Assigned PCP 11/20/20 Heather Doran PA-C [address] [place] [address] 4[address] [place] [address] Assigned Surgical Provider 12/01/22 12/07/22 Justina Patrick MD 9 [place] [address] Assigned Surgical Provider 12/08/22 Josseline Garcia, RN Specialty Supervisor Metal Fabricating Thoracic Surgery 09/16/23 documented as of this encounter
--- OUTSIDE RECORDS SUMMARY | 2024-05-14 13:58 | XMS_ITS | Encounter Summary ---
Author Organization [place] Address [facility] [place] [address] Care Team Providers Care Strategic Development Manager Name Role Phone Carmela Zee MD Primary Care Provider Darnell Gray MD, Justina Unavailable [phone] Carmela Zee MD Unavailable [phone] Heather Doran PA-C Unavailable +- [phone] Darnell Gray MD, Justina Unavailable [phone] Josseline Garcia RN Unavailable Unavailable Reason for Visit * Reason Onset Date Comments Refill Request 12/05/2021 Encounter Details Date Type Department Care Team (Late st Contact Info) Description 12/05/[address] [facility] [address] [place] [address] Rola Fernandez APRN [employer] [address] [place] [address] Refill Request Social History Tobacco Use Types Packs/Day Years Used Date Smoking Tobacco: Never Smokeless Tobacco: Never Alcohol Use Standard Drinks/Week Comments No 0 (1 standard drink = 0.6 oz pur e alcohol) PHQ-2 Answer Date Recorded PHQ-2 Score 0 12/08/2021 Sex and Gender Information Value Date Recorded Sex Assigned at Not on file Gender Identity Not on file Sexual Orientation Not on file documented as of this encounter Miscellaneous Notes * Telephone Encounter - Ely Hamilton RN - 12/07/2021 3:02 PM CDT Medication refused, duplicate. Refused Prescriptions: Disp Refills traZODone (DESYREL) 50 MG tablet 90 tab*0 documented in this encounter Plan of Treatment Not on file documented as of this encounter Visit Diagnoses Diagnosis Primary insomnia Persistent disorder of initiating or maintaining sleep documented in this encounter Additional Health Concerns Assessment Noted Time PHQ-9 Depression Total Score: 4 11/16/19 21 7:03 AM CDT documented as of this encounter Care Teams Strategic Development Manager Relationship Specialty Start Date End Date Carmela Zee MD [address] [address] PCP - General 03/14/09 Justina Patrick MD [address] [place] [address] 267135 Assigned Surgical Provider 05/27/20 11/30/22 Carmela Zee MD [address] [address] Assigned PCP 11/20/20 Heather Doran PA-C [address] [place] [address] [phone] Assigned Surgical Provider 12/01/22 12/07/22 Justina Patrick MD [address] [place] [address] Assigned Surgical Provider 12/08/22 Josseline Garcia, RN Specialty Ruby On Rails Engineer Thoracic Surgery 09/16/23 documented as of this encounter
--- OUTSIDE RECORDS SUMMARY | 2024-05-14 13:58 | XMS_ITS | Encounter Summary ---
Author Organization [place] Address [facility] [place] [address] Care Team Providers Care Real Estate Administrator Name Role Phone Carmela Zee MD Primary Care Provider Darnell Gray MD, Justina Unavailable [phone] Carmela Zee MD Unavailable Heather Doran PA-C Unavailable +- [phone] Darnell Gray MD, Justina Unavailable [phone] Josseline Garcia RN Unavailable Unavailable Reason for Visit * Reason Onset Date Comments MyChart Communication 10/11/2022 Encounter Details Date Type Department Care Team (Late st Contact Info) Description 10/11/2022 MyC Medical Advice [facility] [address] [place] [address] Carmela Zee MD [address] [place] [address] MyChart Communication Social History Tobacco [...] encounter Miscellaneous Notes * Telephone Encounter - Mirian Manjarrez MD - 10/16/2022 7:25 PM CDT Please check who does genetic testing for hemochromatosis. Genetic referral we have states cancer genetic testing * Telephone Encounter - Lily Shen RN - 10/11/2022 4:36 PM INTELLIGENCE SENIOR SERGEANT Please see Mention Mobile message and advise. Routing to covering provider- last name M LLIGENCE SENIOR SERGEANT documented in this encounter Plan of Treatment Not on file documented as of this encounter Visit Diagnoses Not on filedocumented in this encounter Additional Health Concerns Assessment Noted Time PHQ-9 Depression Total Score: 3 02/27/20 22 3:44 PM CDT documented as of this encounter Care Teams Real Estate Administrator Relationship Specialty Start Date End Date Carmela Zee MD [address] 111607 PCP - General 03/14/09 Justina Patrick MD [address] [place] [address] [phone] Assigned Surgical Provider 05/27/20 11/30/22 Carmela Zee MD [address] [address] Assigned PCP 11/20/20 Heather Doran PA-C [address] [place] [address] Assigned Surgical Provider 12/01/22 12/07/22 Justina Patrick MD [address] [place] [address] Assigned Surgical Provider 12/08/22 Josseline Garcia RN Specialty Evaluation Engineer Thoracic Surgery 09/16/23 documented as of this encounter
--- OUTSIDE RECORDS SUMMARY | 2024-05-14 13:58 | XMS_ITS | Encounter Summary ---
Author Organization [place] Address [facility] [place] [address] Care Team Providers Care Victorian Literature Professor Name Role Phone Carmela Zee MD Primary Care Provider [phone] Darnell Gray MD, Justina Unavailable [phone] Carmela Zee MD Unavailable Heather Doran PA-C Unavailable + [phone] Darnell Gray MD, Justina Unavailable [phone] Josseline Garcia RN Unavailable Unavailable Encounter Details Date Type Department Care Team (Late st Contact Info) Description 12/25/2021 MyC Medical Advice [facility] [address] [place] [address] Carmela Zee MD [address] [place] [address] Social History Tobacco Use Types Packs/Day Years [...] documented as of this encounter Care Teams Victorian Literature Professor Relationship Specialty Start Date End Date Carmela Zee MD [address] [employer] [address] [address] PCP - General 03/14/09 Justina Patrick MD [address] [place] [address] 426295 Assigned Surgical Provider 05/27/20 11/30/22 Carmeal Zee MD [address] [employer] [address] [address] Assigned PCP 11/20/20 Heather Doran PA-C [address] [place] [address] Assigned Surgical Provider 12/01/22 12/07/22 Justina Patrick MD [address] [place] [address] Assigned Surgical Provider 12/08/22 Josseline Garcia, RN Specialty Professor Of Biblical Studies Thoracic Surgery 09/16/23 documented as of this encounter
--- OUTSIDE RECORDS SUMMARY | 2024-05-14 13:58 | XMS_ITS | Encounter Summary ---
Author Organization [place] Address [address] [place] [address]. [place] [address] Care Team Providers Care Wood Molder Name Role Phone Carmela Zee MD Primary Care Provider [phone] Darnell Gray MD, Justina Unavailable [phone] Carmela Zee MD Unavailable Heather Doran PA-C Unavailable + [phone] Darnell Gray MD, Justina Unavailable [phone] Josseline Garcia RN Unavailable Unavailable Encounter Details Date Type Department Care Team (Late st Contact Info) Description 09/24/2022 [facility] [address] [place] [address] Justina Patrick MD [address] [place] [address] Social History Tobacco Use Types Packs/Day [...] documented as of this encounter Care Teams Wood Molder Relationship Specialty Start Date End Date Carmela Zee MD [address] [employer] [facility] 200 [place] [address] PCP - General 03/14/09 Justina Patrick MD [address] [place] [address] 713855 Assigned Surgical Provider 05/27/20 11/30/22 Carmela Zee MD [address] [employer] [facility] 200 [place], [place] 747437 Assigned PCP 11/20/20 Heather Doran PA-C [address] [place] [address] [address] [place], [place] 778275 Assigned Surgical Provider 12/01/22 12/07/22 Justina Patrick MD [address] [place] [address] [phone] Assigned Surgical Provider 12/08/22 Josseline Garcia, RN Specialty Junior Sales Representative Thoracic Surgery 09/16/23 documented as of this encounter
--- OUTSIDE RECORDS SUMMARY | 2024-05-14 13:58 | XMS_ITS | Encounter Summary ---
Author Organization [place] Address [address] [place] [address]. [place] [address] Care Team Providers Care Special Ed Assistant Name Role Phone Carmela Zee MD Primary Care Provider [phone] Darnell Gray MD, Justina Unavailable [phone] Carmela Zee MD Unavailable Heather Doran PA-C Unavailable + [phone] Darnell Gray MD, Justina Unavailable [phone] Josseline Garcia RN Unavailable Unavailable Encounter Details Date Type Department Care Team (Late st Contact Info) Description 10/11/2022 [facility] [address] [place] [address] Josseline Garcia, RN Social History [...] documented as of this encounter Care Teams Special Ed Assistant Relationship Specialty Start Date End Date Carmela Zee MD [address] [facility] 200 [place] [address] PCP - General 03/14/09 Justina Patrick MD [address] [place] [address] Assigned Surgical Provider 05/27/20 11/30/22 Carmela Zee MD [address] [facility] 200 [place] [address] Assigned PCP 11/20/20 Heather Doran PA-C [address] [place] [address] [address] [place] [address] Assigned Surgical Provider 12/01/22 12/07/22 Justina Patrick MD [address] [place] [address] Assigned Surgical Provider 12/08/22 Josseline Garcia, RN Specialty Medical Science Liaison Thoracic Surgery 09/16/23 documented as of this encounter
--- OUTSIDE RECORDS SUMMARY | 2024-05-14 13:58 | XMS_ITS | Encounter Summary ---
Author Organization [place] Address [address] [place] [address]. [place] [address] Care Team Providers Care Animal Impersonator Name Role Phone Carmela Zee MD Primary Care Provider [phone] Darnell Gray MD, Justina Unavailable [phone] Carmela Zee MD Unavailable Heather Doran PA-C Unavailable + [phone] Darnell Gray MD, Justina Unavailable [phone] Josseline Garcia RN Unavailable Unavailable Encounter Details Date Type Department Care Team (Late st Contact Info) Description 10/10/2022 [facility] Medical Advice [facility] [address] [place] [address] Justina Patrick MD [address] [place] [address] Social History Tobacco Use Types Packs/Day [...] documented as of this encounter Care Teams Animal Impersonator Relationship Specialty Start Date End Date Carmela Zee MD [address] [employer] [facility] 200 [address] PCP - General 03/14/09 Justina Patrick MD [address] [place] [address] 178675 Assigned Surgical Provider 05/27/20 11/30/22 Carmela Zee MD [address] [employer] [facility] 200 [id number] Assigned PCP 11/20/20 Heather Doran PA-C [address] [place] [address] 4[address] [place], [place] 453005 Assigned Surgical Provider 12/01/22 12/07/22 Justina Patrick MD [address] [place] [address] [phone] Assigned Surgical Provider 12/08/22 Josseline Garcia, RN Specialty Battery Tester Field Thoracic Surgery 09/16/23 documented as of this encounter
--- OUTSIDE RECORDS SUMMARY | 2024-05-14 13:58 | XMS_ITS | Encounter Summary ---
Author Organization [place] Address [address] [place] [address]. [place] [address] Care Team Providers Care Carry Out Clerk Name Role Phone Carmela Zee MD Primary Care Provider [phone] Darnell Gray MD, Justina Unavailable [phone] Carmela Zee MD Unavailable [phone] Heather Doran PA-C Unavailable + [phone] Darnell Gray MD, Justina Unavailable [phone] Josseline Garcia RN Unavailable Unavailable Encounter Details Date Type Department Care Team (Late st Contact Info) Description 12/21/2021 [facility] Medical Advice [facility] [address] [place] [address] Justina Patrick MD [address] [place] [address] Social History Tobacco Use Types Packs/Day [...] documented as of this encounter Care Teams Carry Out Clerk Relationship Specialty Start Date End Date Carmela Zee MD [address] [facility] 200 [place] [address] PCP - General 03/14/09 Justina Patrick MD [address] [place] [address] [phone] Assigned Surgical Provider 05/27/20 11/30/22 Carmela Zee MD [address] [facility] 200 [place], [place] 452297 Assigned PCP 11/20/20 Heather Doran PA-C [address] [place] [address] 4[address] [place], [place] 361285 Assigned Surgical Provider 12/01/22 12/07/22 Justina Patrick MD [address] [place] [address] [phone] Assigned Surgical Provider 12/08/22 Josseline Garcia, RN Specialty Dynamometer Tuner Thoracic Surgery 09/16/23 documented as of this encounter
--- OUTSIDE RECORDS SUMMARY | 2024-05-14 13:58 | XMS_ITS | Encounter Summary ---
Author Organization [place] Address [address] [place] [address]. [place] [address] Care Team Providers Care Operations Agent Name Role Phone Carmela Zee MD Primary Care Provider [phone] Darnell Gray MD, Justina Unavailable [phone] Carmela Zee MD Unavailable Heather Doran PA-C Unavailable + [phone] Darnell Gray MD, Justina Unavailable [phone] Josseline Garcia RN Unavailable Unavailable Encounter Details Date Type Department Care Team (Late st Contact Info) Description 06/05/2022 [facility] [address] [place] [address] Justina Patrick MD [address] [place] [address] Social History Tobacco Use Types Packs/Day [...] documented as of this encounter Care Teams Operations Agent Relationship Specialty Start Date End Date Carmela Zee MD [address] [place] [address] PCP - General 03/14/09 Justina Patrick MD [address] [place] [address] [phone] Assigned Surgical Provider 05/27/20 11/30/22 Carmela Zee MD [address] [place] [address] Assigned PCP 11/20/20 Heather Doran PA-C [address] [place] [address] 4[address] [place], [place] 453055 Assigned Surgical Provider 12/01/22 12/07/22 Justina Patrick MD [address] [place] [address] [phone] Assigned Surgical Provider 12/08/22 Josseline Garcia, RN Specialty Galvanizer Zinc Thoracic Surgery 09/16/23 documented as of this encounter
--- OUTSIDE RECORDS SUMMARY | 2024-05-14 13:58 | XMS_ITS | Encounter Summary ---
Author Organization [place] Address [facility] [place] [address] Care Team Providers Care Condenser Cleaner Name Role Phone Carmela Zee MD Primary Care Provider [phone] Darnell Gray MD, Justina Unavailable [phone] Carmela Zee MD Unavailable Heather Doran PA-C Unavailable + [phone] Darnell Gray MD, Justina Unavailable [phone] Josseline Garcia RN Unavailable Unavailable Reason for Visit * Reason Comments Medication Refill Encounter Details Date Type Department Care Team (Late st Contact Info) Description 01/19/[address] [facility] [address] [place] [phone] Carmela Zee MD [address] [facility] [address] [place] [address] Medication Refill Social History Tobacco [...] Telephone Encounter - Ely Hamilton RN - 01/19/2022 10:37 AM CDT Medication is being filled for 1 time refill only due to: has upcoming appt in February. documented in this encounter Plan of Treatment Not on file documented as of this encounter Visit Diagnoses Diagnosis Hypercholesteremia Pure hypercholesterolemia documented in this encounter Additional Health Concerns Assessment Noted Time PHQ-9 Depression Total Score: 4 11/16/19 21 7:03 AM CDT documented as of this encounter Care Teams Condenser Cleaner Relationship Specialty Start Date End Date Carmela Zee MD [address] [facility] [address] [place] [address] PCP - General 03/14/09 Justina Patrick MD [address] [place] [address] 323175 Assigned Surgical Provider 05/27/20 11/30/22 Carmela Zee MD [address] [facility] [address] [place] [address] Assigned PCP 11/20/20 Heather Doran PA-C [address] [place] [address] 4[address] [place] [address] Assigned Surgical Provider 12/01/22 12/07/22 Justina Patrick MD [address] [place] [address] Assigned Surgical Provider 12/08/22 Radha, Josseline, RN Specialty Promotions Executive Thoracic Surgery 09/16/23 documented as of this encounter
--- OUTSIDE RECORDS SUMMARY | 2024-05-14 13:58 | XMS_ITS | Encounter Summary ---
Author Organization [place] Address [address] [facility] [place] [address] Care Team Providers Care Insulation Blower Name Role Phone Carmela Zee MD Primary Care Provider [phone] Priscilla Self MD Unavailable [phone] Darnell Gray MD, Justina Unavailable [phone] Carmela Zee MD Unavailable [phone] Heather Doran PA-C Unavailable + [phone] Darnell Gray MD, Justina Unavailable [phone] Josseline Garcia RN Unavailable Unavailable Reason for Visit * Reason Comments Medication Refill Encounter Details Date Type Department Care Team (Late st Contact Info) Description 06/19/[address] [facility] [address] [place] [address] Rola Fernandez APRN MACHINE SEWER [address] [place] [address] Medication Refill Social History Tobacco Use Types Packs/Day Years Used Date Smoking Tobacco: Never Smokeless Tobacco: Never Alcohol Use Standard Drinks/Week Comments No 0 (1 standard drink = 0.6 oz pur e alcohol) PHQ-2 Answer Date Recorded PHQ-2 Score 0 03/27/2021 Sex and Gender Information Value Date Recorded Sex Assigned at Not on file Gender Identity Not on file Sexual Orientation Not on file documented as of this encounter Miscellaneous Notes * Telephone Encounter - Alin Mcpherson RN - 06/20/2021 3:44 PM CST Prescription approved per [facility] Refill Protocol. SHREDDER documented in this encounter Plan of Treatment Not on file documented as of this encounter Visit Diagnoses Diagnosis Primary insomnia Persistent disorder of initiating or maintaining sleep documented in this encounter Additional Health Concerns Assessment Noted Time PHQ-9 Depression Total Score: 4 11/16/19 21 7:03 AM CDT documented as of this encounter Care Teams Insulation Blower Relationship Specialty Start Date End Date Carmela Zee MD [address] [address] PCP - General 03/14/09 Priscilla Self MD [address] [place] [address] 586885 Assigned Heart and Vascular Provider 05/27/20 09/16/21 Justina Patrick MD [address] [place] [address] [phone] Assigned Surgical Provider 05/27/20 11/30/22 Carmela Zee MD [address] 933527 Assigned PCP 11/20/20 Heather Doran PA-C [address] [place] [address] 4TH [place], [place] 438935 Assigned Surgical Provider 12/01/22 12/07/22 Justina Patrick MD [address] [place] [address] Assigned Surgical Provider 12/08/22 Josseline Garcia, RN Specialty Implementation Specialist Thoracic Surgery 09/16/23 documented as of this encounter
--- OUTSIDE RECORDS SUMMARY | 2024-05-14 13:58 | XMS_ITS | Encounter Summary ---
Author Organization [place] Address [facility] [place] [address] Care Team Providers Care Volleyball Assistant Coach Name Role Phone Carmela Zee MD Primary Care Provider Priscilla Self MD Unavailable [phone] Darnell Gray MD, Madhuri Unavailable [phone] Carmela Zee MD Unavailable [phone] Heather Doran-C Unavailable + [phone] Darnell Gray MD, Madhuri Unavailable [phone] Josseline Garcia RN Unavailable Unavailable Encounter Details Date Type Department Care Team (Late st Contact Info) Description 10/17/2020 [facility] Medical [facility] [address] [place] [address] Justina Patrick MD [address] [place] [address] Social History Tobacco Use Types Packs/Day Years Used Date Smoking Tobacco: Never Smokeless Tobacco: Never Alcohol Use Standard Drinks/Week Comments No 0 (1 standard drink = 0.6 oz pur e alcohol) PHQ-2 Answer Date Recorded PHQ-2 Score 0 08/13/2018 Sex and Gender Information Value Date Recorded Sex Assigned at Not on file Gender Identity Not on file Sexual Orientation Not on file COVID-19 Exposure Response Date Recorded In the last month, have you been in contact with someone who was confirmed or suspected to have Coronavirus / COVID-19? No / Unsure 10/20/2020 10:20 AM CDT documented as of this encounter Plan of Treatment Not on file documented as of this encounter Visit Diagnoses Not on filedocumented in this encounter Additional Health Concerns Assessment Noted Time PHQ-9 Depression Total Score: 5 11/29/19 17 7:09 AM CDT documented as of this encounter Care Teams Volleyball Assistant Coach Relationship Specialty Start Date End Date Carmela Zee MD [address] [address] PCP - General 03/14/09 Priscilla Self MD [address] [place] [address] [phone] Assigned Heart and Vascular Provider 05/27/20 09/16/21 Justina Patrick MD [address] [place] [address] [phone] Assigned Surgical Provider 05/27/20 11/30/22 Carmela Zee MD [address] [address] Assigned PCP 11/20/20 Heather Doran PA-C [address] [place] [address] [phone] Assigned Surgical Provider 12/01/22 12/07/22 Justina Patrick MD [address] [place] [address] [phone] Assigned Surgical Provider 12/08/22 Josseline Garcia, RN Specialty Community Service Officer Thoracic Surgery 09/16/23 documented as of this encounter
--- OUTSIDE RECORDS SUMMARY | 2024-05-14 13:58 | XMS_ITS | Encounter Summary ---
Author Organization [place] Address [address] [facility] [place] [address] Care Team Providers Care Hotel Concierge Name Role Phone Carmela Zee MD Primary Care Provider [phone] Priscilla Self MD Unavailable [phone] Darnell Gray MD, Justina Unavailable [phone] Carmela Zee MD Unavailable [phone] Heather Doran PA-C Unavailable + [phone] Darnell Gray MD, Justina Unavailable [phone] Josseline Garcia RN Unavailable Unavailable Reason for Visit * Reason Comments Medication Refill Encounter Details Date Type Department Care Team (Late st Contact Info) Description 09/08/2021 Refill [facility] [address] [place] [address] Rola Fernandez APRN UROLOGIC NURSE [address] [place] [address] Medication Refill Social History Tobacco [...] have Coronavirus / COVID-19? No / Unsure 09/11/2021 12:46 PM INSULATION INSPECTOR documented as of this encounter Miscellaneous Notes * Telephone Encounter - Ely Hamilton RN - 09/12/2021 3:21 PM CST Prescription approved per [facility] Refill Protocol. Due this month for an appointment LATION INSPECTOR documented in this encounter Plan of Treatment Not on file documented as of this encounter Visit Diagnoses Diagnosis Primary insomnia Persistent disorder of initiating or maintaining sleep documented in this encounter Additional Health Concerns Assessment Noted Time PHQ-9 Depression Total Score: 4 11/16/19 21 7:03 AM CDT documented as of this encounter Care Teams Hotel Concierge Relationship Specialty Start Date End Date Carmela Zee MD [address] [place] [address] PCP - General 03/14/09 Priscilla Self MD 6 [place], [place] [address] Assigned Heart and Vascular Provider 05/27/20 09/16/21 Justina Patrick MD 9 [place], [place] [address] Assigned Surgical Provider 05/27/20 11/30/22 Carmela Zee MD [address] [place], [place] [address] Assigned PCP 11/20/20 Heather Doran PA-C [address] [facility] 4TH [place] [address] Assigned Surgical Provider 12/01/22 12/07/22 Justina Patrick MD [address]09 [place] [address] Assigned Surgical Provider 12/08/22 Josseline Garcia, RN Specialty Search Consultant Thoracic Surgery 09/16/23 documented as of this encounter
--- OUTSIDE RECORDS SUMMARY | 2024-05-14 13:58 | XMS_ITS | Encounter Summary ---
Author Organization [place] Address [address] [place] [address]. [place] [address] Care Team Providers Care Hide Shaker Name Role Phone Chris Zee MD Primary Care Provider [phone] Darnell Gray MD, Justina Unavailable [phone] Chris Zee MD Unavailable Heather Doran PA-C Unavailable +- [phone] Darnell Gray MD, Justina Unavailable [phone] Josseline Garcia RN Unavailable Unavailable Encounter Details Date Type Department Care Team (Late st Contact Info) Description 08/01/2022 [facility] Medical Advice [facility] [address] [place] [address] Suyapa Simons Social History Tobacco [...] documented as of this encounter Care Teams Hide Shaker Relationship Specialty Start Date End Date Chris Zee MD [address] [facility] [address] [place] [address] PCP - General 03/14/09 Justina Patrick MD [address] [place] [address] Assigned Surgical Provider 05/27/20 11/30/22 Chris Zee MD [address] [facility] [address] [place] [address] Assigned PCP 11/20/20 Heather Doran PA-C [address] [place] [address] Assigned Surgical Provider 12/01/22 12/07/22 Justina Patrick MD [address] [place] [address] Assigned Surgical Provider 12/08/22 Josseline Garcia, MING Specialty Charter Pilot Thoracic Surgery 09/16/23 documented as of this encounter
--- OUTSIDE RECORDS SUMMARY | 2024-05-14 13:58 | XMS_ITS | Encounter Summary ---
Author Organization [place] Address [facility] [place] [address] Care Team Providers Care Customer Service Sales Consultant Name Role Phone Carmela Zee MD Primary Care Provider [phone] Darnell Gray MD, Justina Unavailable [phone] Carmela Zee MD Unavailable [phone] Heather Doran PA-C Unavailable + [phone] Darnell Gray MD, Justina Unavailable [phone] Josseline Garcia RN Unavailable Unavailable Reason for Visit * Reason Comments Medication Refill Encounter Details Date Type Department Care Team (Late st Contact Info) Description 02/18/2022 Refill [facility] [address] [place] [phone] Carmela Zee MD [address] [facility] [address] [place] [address] Medication Refill Social History Tobacco [...] suspected to have Coronavirus/COVID-19? No / Unsure 02/21/2022 12:51 PM CDT documented as of this encounter Miscellaneous Notes * Telephone Encounter - Mis Mathis RN - 02/19/2022 8:18 PM CDT Pending Prescriptions: Disp Refills IBANdronate (BONIVA) 150 MG tablet [Pharma*3 tabl*17 Sig: TAKE 1 TABLET BY MOUTH EVERY 30 DAYS Routing refill request to provider for review/approval because: Needs provider review documented in this encounter Plan of Treatment Not on file documented as of this encounter Visit Diagnoses Diagnosis Age-related osteoporosis without current pathological fracture Senile osteoporosis documented in this encounter Additional Health Concerns Assessment Noted Time PHQ-9 Depression Total Score: 4 11/16/19 21 7:03 AM CDT documented as of this encounter Care Teams Customer Service Sales Consultant Relationship Specialty Start Date End Date Carmela Zee MD [address] [address] PCP - General 03/14/09 Justina Patrick MD [address] [place] [address] [id number] Assigned Surgical Provider 05/27/20 11/30/22 Carmela Zee MD [address] 860707 Assigned PCP 11/20/20 Heather Doran PA-C [address] [place] [address] 358745 Assigned Surgical Provider 12/01/22 12/07/22 Justina Patrick MD [address] [place] [address] Assigned Surgical Provider 12/08/22 Josseline Garcia RN Specialty Traffic Signal Mechanic Thoracic Surgery 09/16/23 documented as of this encounter
--- OUTSIDE RECORDS SUMMARY | 2024-05-14 13:58 | XMS_ITS | Encounter Summary ---
Author Organization [place] Address [facility] [place] [address] Care Team Providers Care Filament Welder Name Role Phone Carmela Zee MD Primary Care Provider [phone] Darnell Gray MD, Justina Unavailable [phone] Carmela Zee MD Unavailable Heather Doran PA-C Unavailable + [phone] Darnell Gray MD, Justina Unavailable [phone] Josseline Garcia RN Unavailable Unavailable Reason for Visit * Reason Comments Medication Refill Encounter Details Date Type Department Care Team (Late st Contact Info) Description 05/22/2022 Refill [place] [address] [place] [phone] Juan Hawthorne MD [address] [place] [address] Medication Refill Social History Tobacco [...] encounter Miscellaneous Notes * Telephone Encounter - Dilia Mora RN - 05/24/2022 10:36 AM CDT RF too soon. Dilia Swain RN documented in this encounter Plan of Treatment Not on file documented as of this encounter Visit Diagnoses Diagnosis Age-related osteoporosis without current pathological fracture Senile osteoporosis documented in this encounter Additional Health Concerns Assessment Noted Time PHQ-9 Depression Total Score: 3 02/27/20 22 3:44 PM CDT documented as of this encounter Care Teams Filament Welder Relationship Specialty Start Date End Date Carmela Zee MD [address] [address] PCP - General 03/14/09 Justina Patrick MD [address] [place] [address] Assigned Surgical Provider 05/27/20 11/30/22 Carmela Zee MD [address] [address] Assigned PCP 11/20/20 Heather Doran PA-C [address] [place] [address] Assigned Surgical Provider 12/01/22 12/07/22 Justina Patrick MD 909 [place] [address] Assigned Surgical Provider 12/08/22 Josseline Garcia, MING Specialty Moving Worker Thoracic Surgery 09/16/23 documented as of this encounter
--- OUTSIDE RECORDS SUMMARY | 2024-05-14 13:58 | XMS_ITS | Encounter Summary ---
Author Organization [place] Address [address] [place] [address]. [place] [address] Care Team Providers Care Unbundler Name Role Phone Carmela Zee MD Primary Care Provider [phone] Darnell Gray MD, Justina Unavailable [phone] Carmela Zee MD Unavailable Heather Doran PA-C Unavailable + [phone] Darnell Gray MD, Justina Unavailable [phone] Josseline Garcia RN Unavailable Unavailable Encounter Details Date Type Department Care Team (Late st Contact Info) Description 05/16/2022 [facility] [address] [place] [address] Justina Patrick MD [address] [place] [address] Social History Tobacco Use Types Packs/Day [...] documented as of this encounter Care Teams Unbundler Relationship Specialty Start Date End Date Carmela Zee MD [address] [place] [address] PCP - General 03/14/09 Justina Patrick MD [address] [place] [address] [id number] Assigned Surgical Provider 05/27/20 11/30/22 Carmela Zee MD [address] [place] [address] Assigned PCP 11/20/20 Heather Doran PA-C [address] [place] [address] [address] [place], [place] [address]365 Assigned Surgical Provider 12/01/22 12/07/22 Justina Patrick MD [address] [place] [address] 401615 Assigned Surgical Provider 12/08/22 Josseline Garcia, RN Specialty Lead Programmer Thoracic Surgery 09/16/23 documented as of this encounter
--- OUTSIDE RECORDS SUMMARY | 2024-05-14 13:58 | XMS_ITS | Encounter Summary ---
Author Organization [place] Address [address] [place] [address]. [place] [address] Care Team Providers Care Congregational Care Pastor Name Role Phone Carmela Zee MD Primary Care Provider [phone] Darnell Gray MD, Justina Unavailable [phone] Carmela Zee MD Unavailable [phone] Heather Doran PA-C Unavailable + [phone] Darnell Gray MD, Justina Unavailable [phone] Josseline Garcia RN Unavailable Unavailable Encounter Details Date Type Department Care Team (Late st Contact Info) Description 06/08/2022 Prep for Procedure [facility] [address] [place] [address] Justina Patrick MD [address] [place] [address] Social History Tobacco Use Types Packs/Day [...] documented as of this encounter Care Teams Congregational Care Pastor Relationship Specialty Start Date End Date Carmela Zee MD [address] [place] [address] PCP - General 03/14/09 Justina Patrick MD [address] [place] [address] 664195 Assigned Surgical Provider 05/27/20 11/30/22 Carmela Zee MD [address] [place] [address] Assigned PCP 11/20/20 Heather Doran PA-C [address] [place] [address] [address] [place], [place] 98[address] Assigned Surgical Provider 12/01/22 12/07/22 Justina Patrick MD [address] [place] [address] 684805 Assigned Surgical Provider 12/08/22 Josseline Garcia, RN Specialty Calibration Specialist Thoracic Surgery 09/16/23 documented as of this encounter
--- OUTSIDE RECORDS SUMMARY | 2024-05-14 13:58 | XMS_ITS | Encounter Summary ---
Author Organization [place] Address [address] [place] [address]. [place] [address] Care Team Providers Care Skein Mercerizing Machine Operator Name Role Phone Chris Zee MD Primary Care Provider [phone] Darnell Gray MD, Justina Unavailable [phone] Chris Zee MD Unavailable Heather Doran PA-C Unavailable +- [phone] Darnell Gray MD, Justina Unavailable [phone] Josseline Garcia RN Unavailable Unavailable Encounter Details Date Type Department Care Team (Late st Contact Info) Description 04/24/2022 [facility] 9 [place] [address] Penelope Dempsey Social History Tobacco Use Types Packs/Day Years [...] documented as of this encounter Care Teams Skein Mercerizing Machine Operator Relationship Specialty Start Date End Date Chris Zee MD [address] [facility] 200 [place] [address] PCP - General 03/14/09 Justina Patrick MD [address] [place] [address] Assigned Surgical Provider 05/27/20 11/30/22 Chris Zee MD [address] [facility] 200 [place] [address] Assigned PCP 11/20/20 Heather Doran PA-C [address] [place] [address] 4[address] [place] [address] Assigned Surgical Provider 12/01/22 12/07/22 Justina Patrick MD [address] [place] [address] Assigned Surgical Provider 12/08/22 Josseline Garcia, RN Specialty Catering Attendant Thoracic Surgery 09/16/23 documented as of this encounter
--- OUTSIDE RECORDS SUMMARY | 2024-05-14 13:58 | XMS_ITS | Encounter Summary ---
Author Organization [place] Address [facility] [place] [address] Care Team Providers Care Pan Reclaim Processor Name Role Phone Carmela Zee MD Primary Care Provider [phone] Priscilla Self MD Unavailable [phone] Darnell Gray MD, Justina Unavailable [phone] Carmela Zee MD Unavailable [phone] Heather DoranC Unavailable + [phone] Darnell Gray MD, Justina Unavailable [phone] Josseline Garcia RN Unavailable Unavailable Encounter Details Date Type Department Care Team (Late st Contact Info) Description 03/31/2020 [facility] Medical Advice [facility] [address] [facility] [address] Janeth Michel APRN [facility] [address] [facility] 207 [place] [address] Social History Tobacco Use Types [...] have Coronavirus / COVID-19? No / Unsure 03/30/2020 12:24 PM CDT documented as of this encounter Plan of Treatment Not on file documented as of this encounter Visit Diagnoses Not on filedocumented in this encounter Additional Health Concerns Assessment Noted Time PHQ-9 Depression Total Score: 5 11/29/19 17 7:09 AM CDT documented as of this encounter Care Teams Pan Reclaim Processor Relationship Specialty Start Date End Date Carmela Zee MD [address] [address] PCP - General 03/14/09 Priscilla Self MD [address] [place] [address] 456875 Assigned Heart and Vascular Provider 05/27/20 09/16/21 Justina Patrick MD [address] [place] [address] 907695 Assigned Surgical Provider 05/27/20 11/30/22 Carmela Zee MD [address] [address] Assigned PCP 11/20/20 Heather Doran PA-C [address] [place] [address] 838385 Assigned Surgical Provider 12/01/22 12/07/22 Justina Patrick MD [address] [place] [address] 385845 Assigned Surgical Provider 12/08/22 Josseline Garcia, RN Specialty Drug Safety Assistant Thoracic Surgery 09/16/23 documented as of this encounter
--- OUTSIDE RECORDS SUMMARY | 2024-05-14 13:58 | XMS_ITS | Encounter Summary ---
Author Organization [place] Address [facility] [place] [address] Care Team Providers Care Transmission Line Engineer Name Role Phone Carmela Zee MD Primary Care Provider [phone] Darnell Gray MD, Justina Unavailable [phone] Carmela Zee MD Unavailable [phone] Heather Doran PA-C Unavailable + [phone] Darnell Gray MD, Justina Unavailable [phone] Josseline Garcia RN Unavailable Unavailable Reason for Visit * Reason Comments Medication Refill Encounter Details Date Type Department Care Team (Late st Contact Info) Description 12/15/2021 Refill [facility] [address] [place] [phone] Carmela Zee MD [address] [facility] [address] [place] [address] Medication Refill Social History Tobacco [...] Telephone Encounter - Ely Hamilton RN - 12/21/2021 1:06 PM CDT Routed to covering provider * Telephone Encounter - Anjelica Devine RN - 12/18/2021 11:07 AM CDT Images from the original note were not included. Routing refill request to provider for review/approval because: Thyroid Protocol Failed 12/15/2021 08:43 AM Protocol Details Normal TSH on file in past 12 months Anjelica Devine RN, BSN [facility] Triage documented in this encounter Plan of Treatment Not on file documented as of this encounter Visit Diagnoses Diagnosis Acquired hypothyroidism Unspecified hypothyroidism documented in this encounter Additional Health Concerns Assessment Noted Time PHQ-9 Depression Total Score: 4 11/16/19 21 7:03 AM CDT documented as of this encounter Care Teams Transmission Line Engineer Relationship Specialty Start Date End Date Carmela Zee MD [address] [address] PCP - General 03/14/09 Justina Patrick MD [address] [place] [address] Assigned Surgical Provider 05/27/20 11/30/22 Carmela Zee MD [address] [facility] 200 [place] [address] Assigned PCP 11/20/20 Heather Doran PA-C [address] [place] [address] 4TH [place] [address] Assigned Surgical Provider 12/01/22 12/07/22 Justina Patrick MD 909 [place] [address] Assigned Surgical Provider 12/08/22 Josseline Garcia, RN Specialty Spooling Supervisor Thoracic Surgery 09/16/23 documented as of this encounter
--- OUTSIDE RECORDS SUMMARY | 2024-05-14 13:58 | XMS_ITS | Encounter Summary ---
Author Organization [place] Address [address] [place] [address]. [place] [address] Care Team Providers Care Bread Room Hand Name Role Phone Carmela Zee MD Primary Care Provider [phone] Darnell Gray MD, Justina Unavailable [phone] Carmela Zee MD Unavailable Heather Doran PA-C Unavailable + [phone] Darnell Gray MD, Justina Unavailable [phone] Josseline Garcia RN Unavailable Unavailable Encounter Details Date Type Department Care Team (Late st Contact Info) Description 03/21/2022 [facility] Medical Advice [facility] [address] [place] [address] Justina Patrick MD [address] [place] [address] Social History Tobacco Use Types Packs/Day [...] documented as of this encounter Care Teams Bread Room Hand Relationship Specialty Start Date End Date Carmela Zee MD [address] [place] [address] PCP - General 03/14/09 Justina Patrick MD [address] [place] [address] 613625 Assigned Surgical Provider 05/27/20 11/30/22 Carmela Zee MD [address] [place] [address] Assigned PCP 11/20/20 Heather Doran PA-C [address] [place] [address] 4[address] [place], [place] 117[address]15 Assigned Surgical Provider 12/01/22 12/07/22 Justina Patrick MD [address] [place] [address] 145265 Assigned Surgical Provider 12/08/22 Josseline Garcia, RN Specialty Brand Marketing Coordinator Thoracic Surgery 09/16/23 documented as of this encounter
--- OUTSIDE RECORDS SUMMARY | 2024-05-14 13:59 | XMS_ITS | Encounter Summary ---
Author Organization [place] Address [address] [place] [address] Care Team Providers Care Manager Of Warehouse Name Role Phone Carmela Zee MD Primary Care Provider Carmela Zee MD Unavailable Carmela Zee MD Unavailable [phone] Miroslava Monsivais APRN ULTRASONIC WELDING MACHINE OPERATOR Unavailable Un available Priscilla Self MD Unavailable [phone] Darnell Gray MD, Madhuri Unavailable [phone] Carmela Zee MD Unavailable Heather Doran PA-C Unavailable + [phone] Darnell Gray MD, Justina Unavailable [phone] Josseline Garcia RN Unavailable Unavailable Encounter Details Date Type Department Care Team (Late st Contact Info) Description 12/26/2015 [facility] Medical Advice [facility] [address] [place] [address] Carmela Zee MD [address] [place] [address] Social History Tobacco Use Types Packs/Day Years Used Date Smoking Tobacco: Never Smokeless Tobacco: Never Alcohol Use Standard Drinks/Week Comments No 0 (1 standard drink = 0.6 oz pur e alcohol) Sex and Gender Information Value Date Recorded Sex Assigned at Not on file Gender Identity Not on file Sexual Orientation Not on file documented as of this encounter Plan of Treatment Not on file documented as of this encounter Visit Diagnoses Not on filedocumented in this encounter Care Teams Manager Of Warehouse Relationship Specialty Start Date End Date Carmela Zee MD [address] [place] [address] PCP - General 03/14/09 Carmela Zee MD [address] [address] PCP - Assigned PCP 12/01/17 10/07/18 Carmela Zee MD [address] [address] Assigned PCP 12/01/17 03/14/19 Miroslava Monsivais APRN [facility] Assigned PCP 03/15/19 11/28/19 Priscilla Self MD [address] [place], [place] [address] Assigned Heart and Vascular Provider 05/27/20 09/16/21 Justina Patrick MD 9[address] [place], [place] 745005 Assigned Surgical Provider 05/27/20 11/30/22 Carmela Zee MD [address] [place] [address] 213187 Assigned PCP 11/20/20 Heather Doran PA-C 909 [facility] 4TH Floor [place], [place] 6[address]85 Assigned Surgical Provider 12/01/22 12/07/22 Justina Patrick MD 9[address] [place], [place] 08[address] Assigned Surgical Provider 12/08/22 Josseline Garcia, RN Specialty Deputy Director Of Public Works Thoracic Surgery 09/16/23 documented as of this encounter
--- OUTSIDE RECORDS SUMMARY | 2024-05-14 13:59 | XMS_ITS | Encounter Summary ---
Author Organization [place] Address [facility] [place] [address] Care Team Providers Care Gas Reverser Name Role Phone Carmela Barreto MD Primary Care Provider Carmela Barreto MD Unavailable [phone] Carmela Barreto MD Unavailable Miroslava Monsivais APRN DECORATOR CONSULTANT Unavailable Un available Priscilla Self MD Unavailable Darnell rGay MD, Madhuri Unavailable [phone] Carmela Barreto MD Unavailable Heather DoranC Unavailable + [phone] Darnell Gray MD, Justina Unavailable [phone] Josseline Garcia RN Unavailable Unavailable Encounter Details Date Type Department Care Team (Late st Contact Info) Description 12/13/2010 Office Visit-[facility] [address] [place] [address] Kaye Bright MD HEART [address] [place], [place] [id number] Social History Tobacco Use Types Packs/Day Years Used Date Smoking Tobacco: Never Alcohol Use Standard Drinks/Week Comments No 0 (1 standard drink = 0.6 oz pur e alcohol) Sex and Gender Information Value Date Recorded Sex Assigned at Not on file Gender Identity Not on file Sexual Orientation Not on file documented as of this encounter Progress Notes * Kaye Bright MD - 12/18/2010 1:13 PM CDT Progress Note Created by: Kaye Bright M.D. [id number] DATE: 12/13/2010 DAVID ESPINO DATE OF : 1945 AGE: [age] years old Referring Physician: CARMELA BARRETO Referring Clinic: [facility] CURRENT DIAGNOSES 1. Hypothyroidism, 244.9 2. 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 Palpitations, 785.1 ALLERGIES NKDA MEDICATIONS (prior to changes made today) 1. omeprazole 40 mg Capsule, Delayed Release(E.C.), 1 p.o. daily 2. fluoxetine 20 mg Capsule, 1 p.o. qAM 3. levothyroxine 100 mcg Tablet, 1 p.o. daily 4. azelastine 0.15 % (205.5 mcg) [place], Non-Aerosol, 1 p.o. PRN as Directed 5. simvastatin 10 mg Tablet, 1 p.o. qHS 6. Fish Oil 1,000 mg Capsule, 1 p.o. daily 7. ascorbic acid 1,000 mg Tablet, 1 p.o. qPM 8. multivitamin Tablet, 1 p.o. daily 9. Calcium 500 + D 500 mg(1,250mg) -200 unit Tablet, 1 p.o. twice daily 10. magnesium 250 mg Tablet, 2 p.o. daily 11. coQ10 (ubiquinol) 200 mg Capsule, 1 p.o. daily CHIEF COMPLAINTS HISTORY OF PRESENT ILLNESS Ms. David Espino is a very pleasant 65-year-old lady who comes with several concerns. She is self referred. She states that she has noticed over the past several months that she has had swelling in her fingers and top of her feet that are nonpitting. She notices it particularly if she is in significant heat when she goes to [place]. She tried not to add salt to her diet and tries to eat a reasonably low salt diet. She does not have any pitting. She also states she feels that she has been undertreated for cholesterol and that perhaps women are undertreated in general. She says that in 1993 she had a hysterectomy. In 1994 her cholesterol and triglycerides started to rise. She is now on medication but her last labs were March,, but were actually quite reasonable. She says she was verystrictly dieting at that time and she thinks it would have changed by now. Her last thyroid function in March was also normal. She has no shortness of breath, chest discomfort, lightheadedness, PND,or orthopnea. She has no presyncope or syncope. She uses a CPAP at night for sleep apnea. Her presenting complaint per the chart was palpitations but she says she does not have that any more. She said she sometimes felt there was a bit of a skipping beat occasionally but it seemed to be related to gas that has since resolved and so have the palpitations. She has no other cardiorespiratory complaints at reasonable exertional capacity. Her brother had a bypass at age 62 or 63. Her father at age 62 of a stroke. She denies tobaccoabuse, hypertension, or diabetes. She does admit to dyslipidemia. PAST HISTORY Past Medical Illnesses: hyperlipidemia, hypothyroidism, osteopenia, sleep apnea, IBS Infectious History: recurrent UTI Surgeries/Procedures - General: hysterectomy, cholecystectomy, bunionectomy, nasal polypectomy Cardiology Procedures-NonInvasive: echocardiogram Jul 2009 Left Ventricular Ejection Fraction: EF<GT>55% by Echo -Jul 2009 FAMILY HISTORY: CARDIAC RISK FACTORS SOCIAL HISTORY Alcohol Use - denies drinking; Smoking - never smoked; Diet - high fiber diet; Lifestyle - ;Exercise - treadmill and 5-6 days a week 30 min; Residence - lives in [place] year round; Place of - [place]; REVIEW OF SYSTEMS GENERAL decreased energy, no change in appetite INTEGUMENTARY denies any change in hair or nails, rashes, or skin lesions. EYES no blurred vision, eye pain, or discharge., wears eye glasses/contact lenses EARS, NOSE, THROAT, MOUTH sinusitis RESPIRATORY sleep apnea, c pap CARDIOVASCULAR negative for palpitations, chest pain, orthopnea, PND, peripheral edema, syncope or claudication. ABDOMINAL constipation and acid reflux/gas/bloading MUSCULOSKELETAL fingers and feet swell in heat NEUROLOGICAL denies any history of recurrent headaches, strokes, TIA, or seizure disorder. PSYCHIATRIC denies any history of depression, substance abuse or change in cognitive functions. ENDOCRINE hypothyroidism HEMATOLOGICAL/IMMUNOLOGIC seasonal allergies PHYSICAL EXAMINATION VITAL SIGNS: Blood Pressure: 129/71Sitting, Left arm, regular cuff Pulse- 82.00/min. Weight- 153.60 lbs. Height- 63.25 Temperature- .00 CONSTITUTIONAL cooperative, alert and oriented,well developed, well nourished, in no acute distress. SKIN warm and dry to touch, no apparent skin lesions, or masses noted. HEAD normocephalic, atraumatic EYES Pupils equal and round, conjunctivae and lids unremarkable, sclera white, no xanthalasma ENT no pallor or cyanosis, dentition good NECK carotid pulses are full and equal bilaterally, JVP normal, no carotid bruit, CHEST normal symmetry, no tenderness to palpation, normal respiratory excursion, no intercostal retraction, no use of accessory muscles, clear to auscultation and percussion. CARDIAC regular rhythm, S1 normal, S2 normal, No S3 or S4, Apical impulse not displaced, no murmurs, gallops or rubs detected. ABDOMEN abdomen soft, bowel sounds normoactive, no masses, no hepatosplenomegaly, non- tender, no bruits PERIPHERAL PULSES pulses full and equal in all extremities, no bruits auscultated. EXTREMITIES & BACK no deformities, clubbing, cyanosis, erythema or edema observed. There are no spinal abnormalities noted. Normal muscle strength and tone. NEUROLOGICAL no gross motor deficits noted, affect appropriate, oriented to time, person and place. MEDICATIONS UPDATED/STARTED TODAY: ascorbic acid 1,000 mg Tablet, 1 p.o. qPM, #-1 azelastine 0.15 % (205.5 mcg) [place], Non-Aerosol, 1 p.o. PRN as Directed, #0 Calcium 500 + D 500 mg(1,250mg) -200 unit Tablet, 1 p.o. twice daily, #0 coQ10 (ubiquinol) 200 mg Capsule, 1 p.o. daily, #0 Fish Oil 1,000 mg Capsule, 1 p.o. daily, #0 fluoxetine 20 mg Capsule, 1 p.o. qAM, #0 levothyroxine 100 mcg Tablet, 1 p.o. daily, #0 magnesium 250 mg Tablet, 2 p.o. daily, #0 multivitamin Tablet, 1 p.o. daily, #-1 omeprazole 40 mg Capsule, Delayed Release(E.C.), 1 p.o. daily, #-1 simvastatin 10 mg Tablet, 1 p.o. qHS, #0 IMPRESSIONS/PLAN This is a pleasant 65-year-old lady with risk factors of family history and dyslipidemia who comes for some general cardiac evaluation. She is concerned about her lipids and we will certainly rechecka lipid panel and liver function tests as well as a thyroid function at this time. We will also check a CRP, homocysteine, and lipoprotein (a) to put her lipids into better context. We will check a CBC and basic metabolic profile as she has not had one in the past nine months. With respect to her swelling, her exam does not suggest cardiogenic edema. There is no benedicto pitting on exam either. She is quite concerned. Her last echo was normal two years ago. I do think it is not unreasonable to recheck another echo and evaluate particularly the IVC size. In the setting of her sleep apnea she certainly could have some backup of pressure causing a little bit of right-sided overload. This will be evaluated by structural imaging. We will have her back with the results and make further recommendations at that time. It is a pleasure to be involved in this pleasant lady's care. Total time: 45 minutes, 40 in s coordination of care and counseling. TODAYS ORDERS 1. Lipid profile/ALT 1 day 2. F/U with Any [facility] SECRETARY Next Available 3. AST 1 day 4. BMP 1 day 5. CRP Cardio 1 day 6. Homocycteine 1 day 7. Lp(a) 1 day 8. TSH 1 day 9. CBC w/out Diff 1day 10. Magnesium 1 day 11. 2D, color flow, doppler 1 Day Kaye Bright M.D. documented in this encounter Plan of Treatment Not on file documented as of this encounter Visit Diagnoses Not on filedocumented in this encounter Care Teams Gas Reverser Relationship Specialty Start Date End Date Carmela Barreto MD [address] [place] [address] PCP - General 03/14/09 Carmela Barreto MD [address] [place] [address] PCP - Assigned PCP 12/01/17 10/07/18 Carmela Barreto MD [address] [place] [address] Assigned PCP 12/01/17 03/14/19 Miroslava Monsivais APRN [facility] Assigned PCP 03/15/19 11/28/19 Priscilla Self MD [address] [place] [address] Assigned Heart and Vascular Provider 05/27/20 09/16/21 Justina Patrick MD [address] [place] [id number] Assigned Surgical Provider 05/27/20 11/30/22 Carmela Barreto MD [address] [facility] [address] [place] [address] Assigned PCP 11/20/20 Heather Doran PA-C [address] [place] [address] [address] [place] [address] Assigned Surgical Provider 12/01/22 12/07/22 Justina Patrick MD [address] [place] [address] [id number] Assigned Surgical Provider 12/08/22 Josseline Garcia, RN Specialty Men'S Furnishings Salesperson Thoracic Surgery 09/16/23 documented as of this encounter
--- OUTSIDE RECORDS SUMMARY | 2024-05-14 13:59 | XMS_ITS | Encounter Summary ---
Author Organization [place] Address [facility]0 [facility] [place] [address] Care Team Providers Care Podiatry Assistant Name Role Phone Carmela Barreto MD Primary Care Provider Carmela Barreto MD Unavailable [phone] Carmela Barreto MD Unavailable Miroslava Monsivais APRN SECURITIES DEALER Unavailable Un available Priscilla Self MD Unavailable Darnell Gray MD, Madhuri Unavailable [phone] Carmela Barreto MD Unavailable [phone] Heather DoranC Unavailable + [phone] Darnell Gray MD, Justina Unavailable [phone] Josseline Garcia RN Unavailable Unavailable Encounter Details Date Type Department Care Team (Late st Contact Info) Description 04/03/2013 Office Visit-[facility] [address] [place] [address] Kaye Bright MD HEART [address] [place], [place] [id number] Social History Tobacco Use Types Packs/Day Years Used Date Smoking Tobacco: Never Alcohol Use Standard Drinks/Week Comments No 0 (1 standard drink = 0.6 oz pur e alcohol) Sex and Gender Information Value Date Recorded Sex Assigned at Not on file Gender Identity Not on file Sexual Orientation Not on file documented as of this encounter Progress Notes * Kaye Bright MD - 04/08/2013 3:26 PM CDT Progress Note Created by: Kaye Bright M.D. [id number] DATE: 04/03/2013 DAVID ESPINO DATE OF : 1945 AGE: [age] years old Referring Physician: CARMELA BARRETO Referring Clinic: [facility] CURRENT DIAGNOSES 1. Hypothyroidism, 244.9 2. 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 Palpitations, 785.1 ALLERGIES NKDA MEDICATIONS (prior to changes made today) 1. ascorbic acid 1,000 mg Tablet, 1 p.o. qPM 2. atorvastatin 20 mg tablet, one tablet daily may refill with 90 tablets. 3. azelastine 0.15 % (205.5 mcg) [place], Non-Aerosol, 1 p.o. PRN as Directed 4. Calcium 600 600 mg (1,500 mg) tablet, 1 p.o. daily 5. dicyclomine 20 mg tablet, 1 p.o. daily 6. Fish Oil 1,000 mg capsule, 2 p.o. twice daily 7. fluoxetine 20 mg Capsule, 1 p.o. qAM 8. levothyroxine 50 mcg tablet, 1 p.o. daily 9. magnesium 250 mg Tablet, 2 p.o. daily 10. multivitamin Tablet, 1 p.o. daily 11. Tagamet HB 200 mg tablet, 2 p.o. twice daily CHIEF COMPLAINTS Per MD - follow up REASON FOR CONSULTATION: Follow-up visit. HISTORY OF PRESENT ILLNESS: Ms. Espino is a pleasant 67-year-old lady who comes in follow-up. She has dyslipidemia and hypothyroidism as well as having had a prior diagnosis of sleep apnea. She now states that she was seen for sleep apnea in fact does not have any but is still very fatigued during the day. She does have complaints of abdominal discomfort, gas and gastritis and what she has noticedas flip-flops in her heart on exertion. She has no clear chest pain on exertion, dyspnea on exertion, light-headedness, presyncope or syncope, PND, orthopnea, or pedal edema. She only notices this when she is trying to walk. Onset is unclear. It does not occur at rest. I have reviewed her lipids and if we are concerned for aggressive risk factor modification, she is not quite at goal on the 10 of simvastatin she is currently taking. PAST HISTORY Past Medical Illnesses: hyperlipidemia, hypothyroidism, osteopenia, sleep apnea, IBS Surgeries/Procedures - General: hysterectomy, cholecystectomy, bunionectomy, nasal polypectomy Cardiology Procedures-NonInvasive: echocardiogram Jul 2009, echocardiogram December 2010, Heart scan 2010 PM[facility]x Echo Results: 12/13 No regional wall motion abnormalities, Left atrium borderline dilated, Trace MR, TR, and PVR.No change since 07/13 Left Ventricular Ejection Fraction: EF<GT>55% by Echo -Jul 2009, EF 60-65% by echo 12/13 EF<GT>55% by Echo -Jul 2009 and EF 60-65% by echo 12/13 FAMILY HISTORY: CARDIAC RISK FACTORS SOCIAL HISTORY Alcohol Use - denies drinking; Smoking - never smoked; Diet - regular diet without modifications and caffeine use-1-2 per day; Lifestyle - ; Exercise - treadmill and 5-6 days a week 30 min; Residence - lives in [place] year round; Place of - [place]; REVIEW OF SYSTEMS GENERAL weight loss INTEGUMENTARY denies any change in hair or nails, rashes, or skin lesions. EYES no blurred vision, eye pain, or discharge., wears eye glasses/contact lenses EARS, NOSE, THROAT, MOUTH sinusitis RESPIRATORY sleep apnea, c pap CARDIOVASCULAR palpitations, occ ABDOMINAL constipation and gas/bloating MUSCULOSKELETAL denies any history of arthritic symptoms or back problems. NEUROLOGICAL denies any history of recurrent headaches, strokes, TIA, or seizure disorder. PSYCHIATRIC denies any history of depression, substance abuse or change in cognitive functions. ENDOCRINE hypothyroidism HEMATOLOGICAL/IMMUNOLOGIC seasonal allergies PHYSICAL EXAMINATION VITAL SIGNS: Blood Pressure: 112/70Sitting, Right arm, regular cuff Pulse- 70.00/min. Weight- 138.00 lbs. Height- 63.25 BMI Measurement: 24 CONSTITUTIONAL cooperative, alert and oriented,well developed, well [...] time, person and place. MEDICATIONS UPDATED/STARTED TODAY: atorvastatin 20 mg tablet, one tablet daily may refill with 90 tablets., #30 (Thirty) Calcium 600 600 mg (1,500 mg) tablet, 1 p.o. daily dicyclomine 20 mg tablet, 1 p.o. daily Fish Oil 1,000 mg capsule, 2 p.o. twice daily levothyroxine 50 mcg tablet, 1 p.o. daily Tagamet HB 200 mg tablet, 2 p.o. twice daily MEDICATIONS REFILLED/STOPPED TODAY: atorvastatin 40 mg tablet one tablet daily may refill with 90 tablets. #30 (Thirty) Refill, [id number] + D 500 mg(1,250mg) -200 unit Tablet 1 p.o. twice daily #0 Physician Order, coQ10 (ubiquinol) 200 mg Capsule 1 p.o. daily #0 Physician Order, Fish Oil 1,000 mg Capsule 1 p.o. daily #0 Physician Order, levothyroxine 100 mcg Tablet 1 p.o. daily #0 Physician Order, omeprazole 40 mg Capsule, Delayed Release(E.C.) 1 p.o. daily #-1 Physician Order and simvastatin 20 mg Tablet 1 p.o. qHS #30 (Thirty) Physician Order ASSESSMENT AND PLAN: A pleasant 67-year-old lady with atypical question of palpitations on exertionor some vague symptoms that are unfortunately poorly described in her chest when she is exerting herself. I do think it is reasonable to do a treadmill echo at this time. If it is an arrhythmia we should see it on the EKG portion and certainly if it is ischemia that provokes an arrhythmia or ischemia that provokes her symptoms which are somewhat vague we will also see that. With her extreme fatigue, however, I will stop her statin for two weeks and check a CK now. We willfollow-up in two weeks time and assess her response and consider restarting her on a statin at thattime in the form of Lipitor 20 mg daily however. Further recommendations will be pending her course. If it a pleasure to be involved in this pleasant ladys care. Total time 30 minutes 25 in coordination care and counseling. TODAYS ORDERS 1. Treadmill Stress Echo 3 days, OFF MEDS, 2. Return Visit me or DEPARTMENT SECRETARY 2 weeks 3. CK Level Today 4. BMP Today 5. Magnesium Today Kaye Bright M.D. documented in this encounter Plan of Treatment Not on file documented as of this encounter Visit Diagnoses Not on filedocumented in this encounter Care Teams Podiatry Assistant Relationship Specialty Start Date End Date Carmela Barreto MD [address] [address] PCP - General 03/14/09 Carmela Barreto MD [address] [id number] PCP - Assigned PCP 12/01/17 10/07/18 Carmela Barreto MD [address] [id number] [phone] Assigned PCP 12/01/17 03/14/19 Miroslava Monsivais APRN SECURITIES DEALER Assigned PCP 03/15/19 11/28/19 Priscilla Self MD [address] [place], [place] [address] Assigned Heart and Vascular Provider 05/27/20 09/16/21 Justina Patrick MD [address] [place] [address] [id number] Assigned Surgical Provider 05/27/20 11/30/22 Carmela Barreto MD [address] [facility] [address] [place] [address] Assigned PCP 11/20/20 Heather Doran PA-C [address] [place] [address] [address] [place], [place] [id number] Assigned Surgical Provider 12/01/22 12/07/22 Justina Patrick MD [address] [place] [address] Assigned Surgical Provider 12/08/22 Josseline Garcia, RN Specialty Button Inspector Thoracic Surgery 09/16/23 documented as of this encounter
--- OUTSIDE RECORDS SUMMARY | 2024-05-14 13:59 | XMS_ITS | Encounter Summary ---
Author Organization [place] Address [address] [facility] [place] [address] Care Team Providers Care Sales And Marketing Director Name Role Phone Carmela Barreto MD Primary Care Provider Carmela Barreto MD Unavailable [phone] Carmela Barreto MD Unavailable Miroslava Monsivais APRN SLIMER Unavailable Un available Priscilla Self MD Unavailable [phone] Darnell Gray MD, Madhuri Unavailable [phone] Carmela Barreto MD Unavailable Heather Doran PA-C Unavailable + [phone] Darnell Gray MD, Madhuri Unavailable [phone] Josseline Garcia RN Unavailable Unavailable Encounter Details Date Type Department Care Team (Late st Contact Info) Description 01/08/2011 Office Visit-[facility] [place] [address] [place] [address] Mila Ahuja, HEAD OF RESEARCH & INSIGHTS SLIMER [address] [facility] [address] [place] [address] Social History Tobacco Use Types Packs/Day Years Used Date Smoking Tobacco: Never Alcohol Use Standard Drinks/Week Comments No 0 (1 standard drink = 0.6 oz pur e alcohol) Sex and Gender Information Value Date Recorded Sex Assigned at Not on file Gender Identity Not on file Sexual Orientation Not on file documented as of this encounter Progress Notes * Mila Ahuja NP - 01/10/2011 9:10 AM CDT Progress Note Created by: Mila Ahuja [email or web address] [id number] DATE: 01/08/2011 MADISON ESPINO DATE OF : 1945 AGE: [age] years old Referring Physician: CARMELA BARRETO Referring Clinic: [facility] CURRENT DIAGNOSES 1. 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 Palpitations, 785.1 3. Hypothyroidism, 244.9 ALLERGIES NKDA MEDICATIONS (prior to changes made today) 1. omeprazole 40 mg Capsule, Delayed Release(E.C.), 1 p.o. daily 2. fluoxetine 20 mg Capsule, 1 p.o. qAM 3. levothyroxine 100 mcg Tablet, 1 p.o. daily 4. azelastine 0.15 % (205.5 mcg) [place], Non-Aerosol, 1 p.o. PRN as Directed 5. Fish Oil 1,000 mg Capsule, 1 p.o. daily 6. ascorbic acid 1,000 mg Tablet, 1 p.o. qPM 7. multivitamin Tablet, 1 p.o. daily 8. Calcium 500 + D 500 mg(1,250mg) -200 unit Tablet, 1 p.o. twice daily 9. magnesium 250 mg Tablet, 2 p.o. daily 10. coQ10 (ubiquinol) 200 mg Capsule, 1 p.o. daily 11. simvastatin 20 mg Tablet, 1 p.o. qHS CHIEF COMPLAINTS Followup of ECHO HISTORY OF PRESENT ILLNESS: This is a delightful 65-year-old female who presents to the [facility] today for a follow-up visit. She is a patient of Dr. Bright. She is seen in our clinic for a past medical history of: 1. Hyperlipidemia. 2. Sleep apnea. 3. Hypothyroidism. 4. Family history of heart disease. Naomi has a known history of treated hyperlipidemia and treated sleep apnea. She met with Dr. Bright in consultation given her family history of heart disease. She had admitted to some generalized edema. Dr. Bright felt it was nonpitting. She set her up for an echocardiogram, lipid panel, homocysteine level, Lp(a) and CRP levels. She returns today for reassessment and review of her test results. Naomi tells me she is doing well. She does exercise on a regular basis without any difficulty. She denies any chest discomfort, neck, arm or jaw pain with activity or at rest. She does suffer from some gas pains and abdominal bloating and has been treated with MiraLax and Prevacid, which has helped some. She denies any resting chest pain. She denies palpitations, lightheadedness, dizziness or near syncope. She also denies orthopnea, paroxysmal nocturnal dyspnea or peripheral edema. She does use her CPAP nightly. Her blood pressure today is 123/73, with a heart rate of 78 beats/minute. Her lungs are clear. There is no evidence of any jugular venous distention or peripheral edema. I reviewed her lipid panel with her. This shows a total cholesterol of 181, triglyceride level 163,LDL level of 97, HDL 52. 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 Her BMP and CBC levels are within normal limits. I reviewed her echocardiogram with her. This shows normal left ventricular function, without any significant valvular disease. Further review of systems and physical exam are as noted below. PAST HISTORY Past Medical Illnesses: hyperlipidemia, hypothyroidism, osteopenia, sleep apnea, IBS Infectious History: recurrent UTI Surgeries/Procedures - General: hysterectomy, cholecystectomy, bunionectomy, nasal polypectomy Cardiology Procedures-NonInvasive: echocardiogram Jul 2009, echocardiogram December 2010 PMHx Echo Results: 12/13 No regional wall motion abnormalities, Left atrium borderline dilated, Trace MR, TR, and PVR.No change since 07/13 Left Ventricular Ejection Fraction: EF<GT>55% by Echo -Jul 2009, EF 60-65% by echo 12/13 FAMILY HISTORY: SOCIAL HISTORY Alcohol Use - denies drinking; Smoking - never smoked; Diet - high fiber diet, caffeine use-3 per day and decaf only; Lifestyle - ; Exercise - treadmill and 5-6 days a week 30 min; Residence -lives in [place] year round; Place of - [place]; REVIEW OF SYSTEMS GENERAL no change in appetite, energy, is OK, weight loss INTEGUMENTARY denies any change in hair or nails, rashes, or skin lesions. EYES no blurred vision, eye pain, or discharge., wears eye glasses/contact lenses EARS, NOSE, THROAT, MOUTH sinusitis RESPIRATORY sleep apnea, c pap CARDIOVASCULAR negative for palpitations, chest pain, orthopnea, PND, peripheral edema, syncope or claudication. ABDOMINAL constipation and acid reflux/gas/bloating MUSCULOSKELETAL fingers and feet swell in heat NEUROLOGICAL denies any history of recurrent headaches, strokes, TIA, or seizure disorder. PSYCHIATRIC denies any history of depression, substance abuse or change in cognitive functions. ENDOCRINE hypothyroidism HEMATOLOGICAL/IMMUNOLOGIC seasonal allergies PHYSICAL EXAMINATION VITAL SIGNS: Blood Pressure: 123/73Sitting, Right arm, regular cuff Pulse- 78.00/min. Weight- 151.10 lbs. Height- 63.25 Temperature- .00 CONSTITUTIONAL cooperative, [...] time, person and place. MEDICATIONS UPDATED/STARTED TODAY: simvastatin 20 mg Tablet, 1 p.o. qHS, #30 (Thirty) MEDICATIONS REFILLED/STOPPED TODAY: simvastatin 10 mg Tablet 1 p.o. qHS #0 Dosage Increased IMPRESSION/PLAN: 1. Strong family history of heart disease. Ethylnn is free from any exertional chest discomfort. She underwent an echocardiogram, which was essentially normal, without any structural abnormalities orwall motion abnormality. She does have normal homocysteine and CRP levels. 2. Hyperlipidemia. 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 She is on low-dose simvastatin. I have asked her to increase this t o 20 mg daily. She has a follow-up visit scheduled with Dr. Barreto and a lipid panel to be done in two months there. She is to notify our clinic with any darkened urine or muscle aches. 3. Sleep apnea.She does use CPAP nightly. Thank you for allowing me to participate in this patient's care. We will see her back on an as needed basis. She is to notify our clinic with chest discomfort, shortness of breath, lightheadedness ordizziness or other concerns she may have during the interim. Mila Ahuja N.P. documented in this encounter Plan of Treatment Not on file documented as of this encounter Visit Diagnoses Not on filedocumented in this encounter Care Teams Sales And Marketing Director Relationship Specialty Start Date End Date Carmela Barreto MD [address] [place] [id number] PCP - General 03/14/09 Carmela Barreto MD [address] [place] [id number] PCP - Assigned PCP 12/01/17 10/07/18 Carmela Barreto MD [address] [place] [id number] Assigned PCP 12/01/17 03/14/19 Miroslava Monsivais APRN [facility] Assigned PCP 03/15/19 11/28/19 Priscilla Self MD [address] [place], [place] [id number] Assigned Heart and Vascular Provider 05/27/20 09/16/21 Justina Patrick MD [address] [place], [place] [address] Assigned Surgical Provider 05/27/20 11/30/22 Carmela Barreto MD [address] [place] [id number] Assigned PCP 11/20/20 Heather Doran PA-C [address] [place], [place] [id number] Assigned Surgical Provider 12/01/22 12/07/22 Justina Patrick MD [address] [place], [place] [id number] Assigned Surgical Provider 12/08/22 Josseline Garcia, RN Specialty Interviewing Clerk Thoracic Surgery 09/16/23 documented as of this encounter
--- OUTSIDE RECORDS SUMMARY | 2024-05-14 13:59 | XMS_ITS | Encounter Summary ---
Author Organization [place] Address [facility] [facility] [place] [address] Care Team Providers Care Evp General Counsel Name Role Phone Michelle Barreto MD Primary Care Provider Michelle Barreto MD Unavailable [phone] Michelle Barreto MD Unavailable Miroslava Monsivais APRN ARTS THERAPIST Unavailable Un available Priscilla Self MD Unavailable Darnell Gray MD, Madhuri Unavailable [phone] Michelle Barreto MD Unavailable Heather DoranC Unavailable [phone] Darnell Gray MD, Justina Unavailable [phone] Josseline Garcia RN Unavailable Unavailable Encounter Details Date Type Department Care Team (Late st Contact Info) Description 05/20/2013 Office Visit-[facility] [address] [place] [address] Kaye Bright MD HEART [address] [place], [place] [id number] Social History Tobacco Use Types Packs/Day Years Used Date Smoking Tobacco: Never Alcohol Use Standard Drinks/Week Comments No 0 (1 standard drink = 0.6 oz pur e alcohol) Sex and Gender Information Value Date Recorded Sex Assigned at Not on file Gender Identity Not on file Sexual Orientation Not on file documented as of this encounter Progress Notes * Kaye Bright MD - 05/25/2013 1:41 PM CDT Progress Note Created by: Kaye Bright M.D. [id number] DATE: 05/20/2013 MADISON ESPINO DATE OF : 1945 AGE: [age] years old Referring Physician: MICHELLE BARRETO Referring Clinic: [facility] CURRENT DIAGNOSES 1. Hypothyroidism, 244.9 2. 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 Palpitations, 785.1 ALLERGIES NKDA MEDICATIONS (prior to changes made today) 1. ascorbic acid 1,000 mg Tablet, 1 p.o. qPM 2. azelastine 0.15 % (205.5 mcg) [place], Non-Aerosol, 1 p.o. PRN as Directed 3. Calcium 600 600 mg (1,500 mg) tablet, 1 p.o. daily 4. dicyclomine 20 mg tablet, 1 p.o. daily 5. Fish Oil 1,000 mg capsule, 2 p.o. twice daily 6. fluoxetine 20 mg Capsule, 1 p.o. qAM 7. levothyroxine 50 mcg tablet, 1 p.o. daily 8. multivitamin Tablet, 1 p.o. daily 9. simvastatin 20 mg tablet, Dose/instruction UNKNOWN 10. Tagamet HB 200 mg tablet, 2 p.o. twice daily CHIEF COMPLAINTS HISTORY OF PRESENT ILLNESS REASON FOR CONSULTATION: Follow-up visit. Ms. Espino is a very pleasant 67-year-old lady who comes in follow-up of a stress echocardiogram. She had dyslipidemia and hypothyroidism as well as sleep apnea and complained of fatigue during the day and occasional palpitations on exertion. We did a treadmill stress echo that showed no evidence ofischemia or arrhythmia. She had been found to have an elevated magnesium level and she states sincestopping it she feels back to normal and her energy has improved significantly. She has no complaints of chest pain or shortness of breath, light-headedness, presyncope or syncope, PND, orthopnea or pedal edema. She has not had any palpitations off her magnesium. We had discussed holding her statin in the setting in the setting of the fatigue but she states sheresumed simvastatin at a dose that we think is 20 mg a day. I have asked her to contact us if she goes home and realizes it is not the full dose. PAST HISTORY Past Medical Illnesses: hyperlipidemia, hypothyroidism, osteopenia, sleep apnea, IBS Surgeries/Procedures - General: hysterectomy, cholecystectomy, bunionectomy, nasal polypectomy Cardiology Procedures-NonInvasive: echocardiogram Jul 2009, December 2010, Heart scan 2010, stress echo Apr 2013 PMHx Echo Results: 12/13 No regional wall motion abnormalities, Left atrium borderline dilated, Trace MR, TR, and PVR.No change since 07/13 Left Ventricular Ejection Fraction: EF<GT>55% by Echo -Jul 2009, EF 60-65% by echo 12/13 LVEF of 55-60% documented via stress echo on 04/23/2013 FAMILY HISTORY: CARDIAC RISK FACTORS SOCIAL HISTORY Alcohol Use - denies drinking; Smoking - never smoked; Diet - regular diet without modifications and caffeine use-1-2 per day; Lifestyle - ; Exercise - treadmill and 5-6 days a week 30 min; Residence - lives in [place] year round; Place of - [place]; REVIEW OF SYSTEMS GENERAL increased energy INTEGUMENTARY denies any change in hair or nails, rashes, or skin lesions. EYES no blurred vision, eye pain, or discharge., wears eye glasses/contact lenses EARS, NOSE, THROAT, MOUTH sinusitis RESPIRATORY sleep apnea, c pap CARDIOVASCULAR negative for palpitations, chest pain, orthopnea, PND, peripheral edema, syncope or claudication. ABDOMINAL constipation and gas/bloating MUSCULOSKELETAL denies any history of arthritic symptoms or back problems. NEUROLOGICAL denies any history of recurrent headaches, strokes, TIA, or seizure disorder. PSYCHIATRIC denies any history of depression, substance abuse or change in cognitive functions. ENDOCRINE hypothyroidism HEMATOLOGICAL/IMMUNOLOGIC seasonal allergies PHYSICAL EXAMINATION VITAL SIGNS: Blood Pressure: 130/78Sitting, Right arm, regular cuff Pulse- 64.00/min. Weight- 139.50 lbs. Height- 63.25 BMI Measurement: 24 CONSTITUTIONAL [...] place. MEDICATIONS UPDATED/STARTED TODAY: simvastatin 20 mg tablet, Dose/instruction UNKNOWN, #0 (Zero) MEDICATIONS REFILLED/STOPPED TODAY: atorvastatin 20 mg tablet one tablet daily may refill with 90 tablets. #30 (Thirty) Physician Orderand magnesium 250 mg Tablet 2 p.o. daily #0 Physician Order IMPRESSIONS/PLAN A pleasant 67-year-old lady with previous palpitations and fatigue now resolved off supplemental magnesium. Her CK was normal and we can continue the simvastatin and recheck her lipids at the end of Junewith a follow-up visit at that time. Again, she will call us with the dose of her statin if it is different than the 20 mg we think. It is a pleasure being involved in this pleasant ladys care. Total time 30 minutes 25 in coordination care and counseling. TODAYS ORDERS 1. Lipid Profile 2 months 2. F/U with Any [facility]TERTAIN[facility] 2 months Kaye Bright M.D. documented in this encounter Plan of Treatment Not on file documented as of this encounter Visit Diagnoses Not on filedocumented in this encounter Care Teams Evp General Counsel Relationship Specialty Start Date End Date Michelle Barreto MD [address] [place] [address] PCP - General 03/14/09 Michelle Barreto MD [address] [place] [address] PCP - Assigned PCP 12/01/17 10/07/18 Michelle Barreto MD [address] [place] [address] Assigned PCP 12/01/17 03/14/19 Miroslava Monsivais APRN ARTS THERAPIST Assigned PCP 03/15/19 11/28/19 Priscilla Self MD [address] [place] [id number] Assigned Heart and Vascular Provider 05/27/20 09/16/21 Justina Patrick MD [address] [place] [id number] Assigned Surgical Provider 05/27/20 11/30/22 Michelle Barreto MD [address] [address] Assigned PCP 11/20/20 Heather Doran PA-C [address] [place] [id number] Assigned Surgical Provider 12/01/22 12/07/22 Justina Patrick MD [address] [place] [id number] Assigned Surgical Provider 12/08/22 Josseline Garcia, RN Specialty Emergency Medical Dispatcher Thoracic Surgery 09/16/23 documented as of this encounter
== END 2024-05-14 09:56 | disposition home or self-care (01) ==
PROVIDERS: PCP Internal Medicine; Referring Provider Internal Medicine; Visit Provider Internal Medicine
DX: M81.0 Age-related osteoporosis without current pathological fracture (principal); E03.9 Hypothyroidism, unspecified; E78.5 Hyperlipidemia, unspecified
CPT/HCPCS: 80061; 82306; 84443

== ENCOUNTER 2024-08-13 11:53 | Outpatient (CLI) | payer MEDICARE, BC, SELFPAY | END 2024-08-13 11:54 | disposition home or self-care (01) | PROVIDERS: PCP Internal Medicine; Visit Provider Internal Medicine | DX: R35.0 Frequency of micturition (principal); R30.0 Dysuria; Z13.21 Encounter for screening for nutritional disorder | CPT/HCPCS: 80053; 82306; 82550; 84550 ==

== ENCOUNTER 2024-08-14 07:23 | Outpatient (CLI) | payer MEDICARE, BC, SELFPAY | END 2024-08-14 07:24 | disposition home or self-care (01) | LOC: NFLDREF 08-22 20:28 | PROVIDERS: PCP Internal Medicine; Referring Provider Internal Medicine; Visit Provider Internal Medicine | DX: R30.0 Dysuria (principal); R35.0 Frequency of micturition | CPT/HCPCS: 87086 ==

== ENCOUNTER 2024-08-19 13:04 | Outpatient (CLI) | payer MEDICARE, BC, SELFPAY ==
--- NOTE | 2024-08-19 13:30 | CRLHL7_ITS ---
For Patients: As a result of the Century Cures Act, medical imaging exams and procedure reports are released immediately into your electronic medical record. You may view this report before your referring provider. If you have questions, please contact your health care provider. XR DXA Bone Mineral Density (BMD) Reason for exam: Osteoporosis. Current height (in): 61. Weight (lb): 135. Menopause age: 48. Ethnicity: White. 1. Have you had a previous hip or vertebral fracture? No. 2. Have you had any fractures during your adult life which did not result from significant trauma (e.g., auto accident)? No. 3. Did either of your parents have a hip fracture? No. 4. Do you smoke? No. 5. Have you ever taken Glucocorticoids? No. 6. Do you have rheumatoid arthritis? No. 7. Do you have secondary osteoporosis? No. 8. Do you drink 3 or more alcoholic drinks per day? No. 9. Are you being treated for osteoporosis? Yes. 10. Have you ever taken any of the following medications: Actonel, Evista, Fosamax, Miacalcin, Reclast, Boniva, Forteo, HRT (i.e., estrogen/hormone therapy), Protelos, Prolia, Vitamin D, Calcium, other ??? please specify. ANSWER: Yes, Vitamin D, Boniva (i.e., ibandronate), and calcium. 11. Do you have any of the following medical conditions: Anorexia or bulimia, asthma or emphysema, end stage renal disease, hyperparathyroidism, any seizure disorders, cancer, inflammatory bowel diseases, hysterectomy, other ??? please specify. ANSWER: Yes, hysterectomy. 12. What was your maximum height (inches)? 64. 13. Do you perform weight bearing exercise regularly? Yes. 14. Do you regularly consume dairy products? Yes. 15. Do you drink caffeinated beverages? Yes. 16. At what age did your period start? 11. 17. Are you premenopausal? No. 18. How many full-term pregnancies have you had? 2. 19. Have you ever missed your period for more than 6 months in a row (not including or menopause)? No. TECHNIQUE: Bone mineral density study was performed using the [employer] FINDINGS: The results of the study expressed as bone mineral density (BMD) are as follows: Lumbar spine L2 to L4: BMD: 1.035 g/cm2. T-score: -0.4. Z-score: 2.3 Neck Left: BMD: 0.560 g/cm2. T-score: -2.6. Z-score: -0.3 Right: BMD: 0.568 g/cm2. T-score: -2.5. Z-score: -0.3 Total Left: BMD: 0.692 g/cm2. T-score: -2.0. Z-score: 0.0 Right: BMD: 0.702 g/cm2. T-score: -2.0. Z-score: 0.0 IMPRESSION: Osteoporosis. *Comparison exams done prior to 01/2020 were performed on different unit, T[employer]. Christiano Duckworth M.D. Diagnostic Radiologist [email or web address] CHYNA/[email or web address] leon/Dictated by: Christiano Duckworth MD @ 08/20/2024 10:21:00 AM (Electronically Signed)
== END 2024-08-19 13:05 | disposition home or self-care (01) ==
LOC: RAD 13:05
PROVIDERS: PCP Internal Medicine; Visit Provider Internal Medicine
DX: M81.0 Age-related osteoporosis without current pathological fracture (principal); M85.88 Other specified disorders of bone density and structure, other site
CPT/HCPCS: 77080